=== PATIENT | female | born 1970 | race Caucasian/White ===

== ENCOUNTER 2017-09-14 11:15 | Emergency (ER) | payer BC ==
--- OUTSIDE RECORDS SUMMARY | 2017-09-14 11:29 | XMS REPORT ---
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 Eosinophils 0.1 10^3/uL 0-0.6 Abs Basophils 0 10^3/uL 0-0.2 Abs Nucleated RBC 0.01 10^3/uL Granulocyte % 64.4 % 38-83 Lymphocyte % 28.1 % 25-47 Monocyte % 5.9 % 1-9 Eosinophil % 1.2 % 0-6 Basophil % 0.4 % 0-2 Nucleated Red Blood Cells % 0.1 Laboratory test finding 09/20/2014 Troponin I 0.00 ng/mL <0.03 40, 41 Arthritis Panel 07/13/2013 Erythrocyte Sed Rate 15 mm/Hr High 0-14 Uric Acid 3.4 mg/dL 2.3-6.6 Shweta (Anti-Nuclear AB) Screen Negative Negative Rheumatoid Factor <15 IU/mL <15 42 Lyme Western Blot 07/13/2013 Lyme Disease IgG Ab WB Negative Negative Lyme Disease IgG Bands Present p41, kDa Lyme Disease IgM Ab WB Negative Negative Lyme Disease IgM Bands Present No bands detecte <SEE NOTE> kDa 43 Lyme Disease Interpretation See Comment 44 Surgical Pathology 06/21/2013 S RUN DATE: <SEE NOTE> Clotest 06/21/2013 Clotest (SEE NOTE) 46 Throat-Beta Strept 06/19/2013 Throat Beta Strep (SEE NOTE) 47 Culture Stool For Blood 01/08/2013 Stool Occult Blood (SEE NOTE) 48 Laboratory test finding 01/08/2013 Fecal Lactoferrin (Stool (SEE NOTE) 49 WBC) C. difficile Amplified Dna (SEE NOTE) 50 Stool Panel ([facility]) 01/07/2013 O P: Giardia/Cryptospor Screen (SEE NOTE) 51 Stool Culture (SEE NOTE) 52 Transglutaminase Igg & Iga 01/05/2013 Tissue Transglutaminase IgA Ab <1.2 U/ mL 53 Tissue Transglutaminase IgG Ab 2.7 U/mL 54 Laboratory test finding 01/05/2013 TSH (Thyroid Stimulating 2.50 miu/mL 0.34-5.60 Horm) CBC No Diff 01/05/2013 White Blood Count 5.8 10^3/uL 4.8-10.8 Red Blood Count 4.11 10^6/uL 4.0-5.4 Hemoglobin 12.7 g/dL 12.0-16.0 Hematocrit 38 % 35-47 Mean Corpuscular Volume 91 fL 80-97 Mean Corpuscular Hemoglobin 31 pg 27-31 Mean Corpuscular HGB Conc 34 g/dL 31-36 Red Cell Distribution Width 12 % 10.5-15 Platelet Count 221 10^3/uL 150-450 Mean Platelet Volume 8 um3 7.4-10.4 Comp Metabolic Panel 01/05/2013 Sodium 139 mmol/L 133-145 Potassium 4.1 mmol/L 3.5-5.0 Chloride 105 mmol/L 101-111 Co2 Carbon Dioxide 27.0 mmol/L 22-32 Anion Gap 7.0 mmol/L 2-11 Glucose 85 mg/dL 70-100 Blood Urea Nitrogen 4 mg/dL Low 6-24 Creatinine 0.80 mg/dL 0.50-1.40 BUN/Creatinine Ratio 5.0 Low 8-20 Calcium 9.3 mg/dL 8.1-9.9 Total Protein 6.6 g/dL 6.2-8.1 Albumin 4.3 g/dL 3.6-5.4 Globulin 2.3 g/dL 2-4 Albumin/Globulin Ratio 1.9 1-3 Total Bilirubin 0.5 mg/dL 0.4-1.5 Alkaline Phosphatase 59 U/L 30-110 Alt 11 U/L Low 14-54 Ast 21 U/L 12-42 Egfr Non- 78.7 >60 Egfr 101.2 >60 55 Laboratory test finding 01/20/2012 Strep Screen NEG Neg CBC Auto Diff 07/01/2011 White Blood Count 6.2 CUMM 4.8-10.8 Red Cell Count 3.97 CUMM Low 4.2-5.4 Hemoglobin 12.5 g/dL 12.0-16.0 Hematocrit 37 % 35-47 Mean Corpuscular Volume 92 um3 79-97 Mean Corpuscular Hemoglob 32 pg High 27-31 Mean Corpuscular HGB Cone 34 g/dL 32-36 Redcell Distribution WDTH 13 % 10.5-15 Platelet Count 208 CUMM 150-450 Mean Platelet Volume 8.4 um3 7.4-10.4 Gran % 62.5 % 38-83 Lymph % 29.4 % 25-47 Mononuclear % 6.7 % 1-9 Eosinophil % 0.8 % 0-6 Basophil % 0.6 % 0-2 Abs Lymphs 1.8 1.0-4.8 Abs Mononuclear 0.4 0-0.8 Absolute Neutrophil Count 3.9 1.5-7.7 Abs Eosinophils 0 0-0.6 Abs Basophils 0 0-0.2 Basic Metabolic Panel 07/01/2011 Sodium 139 mmol/L 135-145 Potassium 3.7 mmol/L 3.5-5.0 Chloride 107 mmol/L 101-111 Co2 (Carbon Dioxide) 26.0 mmol/L 22-32 Anion Gap 6.0 mmol/L 2-11 56 Glucose 98 mg/dL 70-100 BUN 12 mg/dL 6-24 Creatinine 0.8 mg/dL 0.50-1.40 One Over Creatinine 1.25 BUN/Creatinine Ratio 15.0 8-20 Calcium 9.4 mg/dL 8.1-9.9 eGFR Non- 79.0 > 60 eGFR 101.7 > 60 57 Laboratory test finding 07/01/2011 Thyroxine 5.5 g/dL 5-12 T3 Total 0.92 NG/ML 0.5-1.7 TSH 1.97 MIU/ML 0.34-5.60 Laboratory test finding 07/01/2011 Magnesium 1.8 mg/dL 1.7-2.6 Laboratory test finding 10/31/2010 Sweat Chloride 42 mmol/L 58 CBC Auto Diff 08/10/2010 White Blood Count 7.5 CUMM 4.8-10.8 Red Cell Count 3.93 CUMM Low 4.2-5.4 Hemoglobin 12.1 g/dL 12.0-16.0 Hematocrit 36 % 35-47 Mean Corpuscular Volume 93 um3 79-97 Mean Corpuscular Hemoglob 31 pg 27-31 Mean Corpuscular HGB Cone 33 g/dL 32-36 Redcell Distribution WDTH 13 % 10.5-15 Platelet Count 244 CUMM 150-450 Mean Platelet Volume 8.1 um3 7.4-10.4 Gran % 67.5 % 38-83 Lymph % 25.2 % 25-47 Mononuclear % 6.0 % 1-9 Eosinophil % 1.0 % 0-6 Basophil % 0.3 % 0-2 Abs Lymphs 1.9 1.0-4.8 Abs Mononuclear 0.5 0-0.8 Absolute Neutrophil Count 5.1 1.5-7.7 Abs Eosinophils 0.1 0-0.6 Abs Basophils 0 0-0.2 Comp Metabolic Panel 08/10/2010 Sodium 137 mmol/L 135-145 Potassium 3.7 mmol/L 3.5-5.0 Chloride 102 mmol/L 101-111 Co2 (Carbon Dioxide) 29.0 mmol/L 22-32 Anion Gap 6.0 mmol/L 2-11 59 Glucose 81 mg/dL 70-100 BUN 10 mg/dL 6-24 Creatinine 0.70 mg/dL 0.50-1.40 One Over Creatinine 1.40 BUN/Creatinine Ratio 14.3 8-20 Calcium 9.2 mg/dL 8.1-9.9 Total Protein 6.7 GM/DL 6.2-8.1 Albumin 4.1 GM/DL 3.6-5.4 Globulin 2.6 GM/DL 2-4 Albumin/Globulin Ratio 1.6 1-3 Bilirubin Total 0.7 mg/dL 0.4-1.5 60 Alkaline Phosphatase 70 U/L 30-110 Alt (SGPT) 10 U/L Low 14-54 Ast (Sgot) 23 U/L 12-42 eGFR Non- 92.7 > 60 eGFR 119.2 > 60 61 Laboratory test finding 08/10/2010 Monospot NEGATIVE Negative Latoya Moody Comprehensive 08/10/2010 Ebv Vca Igg Positive Negative Ebv Vca Igm Negative Negative Ebna Positive Negative Ebv Interpretation SEE BELOW () 62 Laboratory test finding 08/10/2010 Strep Screen NEG Neg Laboratory test finding 12/21/2008 Lipase 23 U/L 22-51 Amylase 42 U/L 30-125 Comp Metabolic Panel 12/21/2008 Sodium 137 mmol/L 135-145 Potassium 3.9 mmol/L 3.5-5.0 Chloride 106 mmol/L 101-111 Co2 (Carbon Dioxide) 27.0 mmol/L 22-32 Anion Gap 4.0 mmol/L 2-11 63 Glucose 84 mg/dL 70-100 64 BUN 7 mg/dL 6-24 Creatinine 0.90 mg/dL 0.50-1.40 One Over Creatinine 1.10 BUN/Creatinine Ratio 7.8 Low 8-20 Calcium 9.0 mg/dL 8.1-9.9 65 Total Protein 6.6 GM/DL 6.2-8.1 Albumin 4.0 GM/DL 3.6-5.4 Globulin 2.6 GM/DL 2-4 Albumin/Globulin Ratio 1.5 1-3 Bilirubin Total 0.9 mg/dL 0.4-1.5 66 Alkaline Phosphatase 60 U/L 30-110 Alt (SGPT) 8 U/L Low 14-54 Ast (Sgot) 21 U/L 12-42 eGFR Non- 74.5 > 60 eGFR 90.1 > 60 67 CBC With Electronic Diff 12/21/2008 White Blood Count 5.8 CUMM 4.8-10.8 Red Cell Count 4.21 CUMM 4.2-5.4 Hemoglobin 13.2 g/dL 12.0-16.0 Hematocrit 39 % 35-47 Mean Corpuscular Volume 93 um3 79-97 Mean Corpuscular Hemoglob 31 pg 27-31 Mean Corpuscular HGB Cone 34 g/dL 32-36 Redcell Distribution WDTH 13 % 10.5-15 Platelet Count 219 CUMM 150-450 Mean Platelet Volume 8.0 um3 7.4-10.4 Gran % 60.6 % 38-83 Lymph % 28.8 % 25-47 Mononuclear % 9.2 % High 1-9 Eosinophil % 0.8 % 0-6 Basophil % 0.6 % 0-2 Abs Lymphs 1.7 1.0-4.8 Abs Mononuclear 0.5 0-0.8 Absolute Neutrophil Count 3.5 1.5-7.7 Abs Eosinophils 0 0-0.6 Abs Basophils 0 0-0.2 Laboratory test finding 04/15/2007 Erythrocyte Sed Rate 22 MM/HR High 0- 15 Monospot NEGATIVE Negative Shweta (Antinuclear Antibodies) 04/15/2007 Antinuclear AB NEGATIVE Negative Comp Metabolic Panel 04/15/2007 One Over Creatinine 1.11 Anion Gap 7.0 mmol/L 2-11 68 Albumin/Globulin Ratio 1.3 1-3 Albumin 3.8 GM/DL 3.6-5.4 Alkaline Phosphatase 68 U/L 30-110 Alt (SGPT) 10 U/L Low 14-54 Ast (Sgot) 24 U/L 12-42 BUN 8 mg/dL 6-24 Calcium 8.3 mg/dL Low 8.7-10.2 Chloride 107 mmol/L 101-111 Co2 (Carbon Dioxide) 25.0 mmol/L 22-32 Globulin 3.0 GM/DL 2-4 Glucose 79 mg/dL 70-105 Potassium 4.2 mmol/L 3.5-5.0 Sodium 139 mmol/L 135-145 Bilirubin Total 0.7 mg/dL 0.4-1.5 Total Protein 6.8 GM/DL 6.2-8.1 BUN/Creatinine Ratio 8.9 8-20 Creatinine 0.9 mg/dL 0.5-1.4 CBC With Electronic Diff 04/15/2007 White Blood Count 6.3 CUMM 4.8-10.8 Abs Basophils 0 0-0.2 Abs Eosinophils 0.1 0-0.6 Absolute Neutrophil Count 3.8 1.5-7.7 Abs Lymphs 1.8 1.0-4.8 Abs Mononuclear 0.6 0-0.8 Basophil % 0.5 % 0-2 Hematocrit 35 % 35-47 Hemoglobin 12.0 g/dL 12.0-16.0 Eosinophil % 1.2 % 0-6 Gran % 59.9 % 38-83 Lymph % 29.2 % 20-45 Mean Corpuscular HGB Cone 34 g/dL 32-36 Mean Corpuscular Hemoglob 30 pg 27-31 Mean Corpuscular Volume 90 um3 79-97 Mean Platelet Volume 8.7 um3 7.4-10.4 Mononuclear % 9.2 % High 1-9 Platelet Count 222 CUMM 150-450 Red Cell Count 3.95 CUMM Low 4.2-5.4 Redcell Distribution WDTH 13 % 10.5-15 Laboratory test finding 04/15/2007 Strep Screen NEG Neg Laboratory test finding 03/23/2007 Flu Test A&B, Quickvue POS CBC With Manual Diff 03/23/2007 White Blood Count 4.8 CUMM 4.8-10.8 Absolute Neutrophil Count 4.0 Hematocrit 32 % Low 35-47 Hemoglobin 11.1 g/dL Low 12.0-16.0 Lymphocyte 10 % 5-47 Mean Corpuscular HGB Cone 35 g/dL 32-36 Mean Corpuscular Hemoglob 30 pg 27-31 Mean Corpuscular Volume 88 um3 79-97 Monocyte 5 % 0-13 Mean Platelet Volume 8.9 um3 7.4-10.4 Platelet Count 158 CUMM 150-450 Poikilocytosis SLIGHT Polysegmented Neutrophil 85 % High 38-83 Red Cell Count 3.65 CUMM Low 4.2-5.4 Redcell Distribution WDTH 13 % 10.5-15 Laboratory test 03/23/2007 Erythrocyte Sed Rate 13 MM/HR 0-15 finding Shweta (Antinuclear 03/23/2007 Antinuclear AB NEGATIVE Negative Antibodies) Laboratory test 03/23/2007 Rheumatoid Factor < 20.0 IU/mL Less Than 20 finding Laboratory test 03/23/2007 Cyclic Citrullinated <15.6 U () 69 finding Pep Igg Comp Metabolic Panel 03/23/2007 One Over Creatinine 1.00 Anion Gap 14.0 mmol/L High 2-11 70 Albumin/Globulin Ratio 1.3 1-3 Albumin 3.6 GM/DL 3.6-5.4 Alkaline Phosphatase 63 U/L 30-110 Alt (SGPT) 27 U/L 14-54 Ast (Sgot) 143 U/L High 12-42 BUN 8 mg/dL 6-24 Calcium 8.3 mg/dL Low 8.7-10.2 Chloride 103 mmol/L 101-111 Co2 (Carbon Dioxide) 25.0 mmol/L 22-32 Globulin 2.8 GM/DL 2-4 Glucose 109 mg/dL High 70-105 Potassium 3.6 mmol/L 3.5-5.0 Sodium 142 mmol/L 135-145 Bilirubin Total 0.4 mg/dL 0.4-1.5 Total Protein 6.4 GM/DL 6.2-8.1 BUN/Creatinine Ratio 8.0 8-20 Creatinine 1.0 mg/dL 0.5-1.4 Laboratory test finding 10/03/2006 Strep Screen NEG Neg Comp Metabolic Panel 10/03/2006 One Over Creatinine 1.11 Anion Gap 6.0 mmol/L 2-11 71 Albumin/Globulin Ratio 1.6 1-3 Albumin 4.1 GM/DL 3.6-5.4 Alkaline Phosphatase 57 U/L 30-110 Alt (SGPT) 8 U/L Low 14-54 Ast (Sgot) 22 U/L 12-42 BUN 10 mg/dL 6-24 Calcium 8.8 mg/dL 8.7-10.2 Chloride 106 mmol/L 101-111 Co2 (Carbon Dioxide) 27.0 mmol/L 22-32 Globulin 2.5 GM/DL 2-4 Glucose 83 mg/dL 70-105 Potassium 4.1 mmol/L 3.5-5.0 Sodium 139 mmol/L 135-145 Bilirubin Total 0.5 mg/dL 0.4-1.5 Total Protein 6.6 GM/DL 6.2-8.1 BUN/Creatinine Ratio 11.1 8-20 Creatinine 0.9 mg/dL 0.5-1.4 Laboratory test finding 10/03/2006 TSH 2.14 MIU/ML 0.34-5.60 Free Thyroxine 0.60 NG/ML Low 0.61-1.24 72 CBC With Manual Diff 10/03/2006 White Blood Count 6.9 CUMM 4.8-10.8 Absolute Neutrophil Count 4.8 Anisocytosis SLIGHT Hematocrit 37 % 35-47 Hemoglobin 12.6 g/dL 12.0-16.0 Lymphocyte 28 % 5-47 Mean Corpuscular HGB Cone 34 g/dL 32-36 Mean Corpuscular Hemoglob 32 pg High 27-31 Mean Corpuscular Volume 92 um3 79-97 Monocyte 2 % 0-13 Mean Platelet Volume 8.7 um3 7.4-10.4 Platelet Count 227 CUMM 150-450 Polysegmented Neutrophil 70 % 38-83 Red Cell Count 4.01 CUMM Low 4.2-5.4 Redcell Distribution WDTH 13 % 10.5-15 1 REFERENCE VALUE 6:00-10:30 AM Collection 0.121-1.065 mcg/dL ADDITIONAL INFORMATION This test was developed and its performance characteristics determined by [facility] in a manner consistent with CLIA requirements. This test has not been cleared or approved by the U.S. Food and Drug Administration. Test Performed by: [facility] [address] [place] [id number] 2 Comment: baseline 3 AM 8.7-22.4 PM <10 4 Comment: 90 min 5 AM 8.7-22.4 PM <10 6 Comment: 30 min 7 AM 8.7-22.4 PM <10 8 AM 8.7-22.4 PM <10 9 [id number] Serologic response to B. burgdorferi infection is not detected, but cannot rule out early infection during which low or undetectable antibody levels to B. burgdorferi may be present. If clinically indicated, a new serum specimen should be submitted in 7-14 days. Test Performed by: [facility] [employer] [address] [place] [id number] 13 Because ethnic data is not always readily available, this report includes an eGFR for both -Americans and non- Americans. The National Kidney Disease Education Program (NKDEP) does not endorse the use of the MDRD equation for patients that are not between the ages of 18 and 70, are , have extremes of body size, muscle mass, or nutritional status, or are non- or non-. According to the National Kidney Foundation, irrespective of diagnosis, the stage of the disease is based on the level of kidney function: Stage Description GFR(mL/min/1.73 m(2)) 1 Kidney damage with normal or decreased GFR 90 2 Kidney damage with mild decrease in GFR 60-89 3 Moderate decrease in GFR 30-59 4 Severe decrease in GFR 15-29 5 Kidney failure <15 (or dialysis) 14 Acute inflammation: >10.00 15 ADDITIONAL INFORMATION This test was developed using an analyte specific reagent. Its performance characteristics were determined by [facility] in a manner consistent with CLIA requirements. This test has not been cleared or approved by the U.S. Food and Drug Administration. Test Performed by: [address] [id number] 16 Acute inflammation: >10.00 17 Because ethnic data is not always readily available, this report includes an eGFR for both -Americans and non- Americans. The National Kidney Disease Education Program (NKDEP) does not endorse the use of the MDRD equation for patients that are not between the ages of 18 and 70, are , have extremes of body size, muscle mass, or nutritional status, or are non- or non-. According to the National Kidney Foundation, irrespective of diagnosis, the stage of the disease is based on the level of kidney function: Stage Description GFR(mL/min/1.73 m(2)) 1 Kidney damage with normal or decreased GFR 90 2 Kidney damage with mild decrease in GFR 60-89 3 Moderate decrease in GFR 30-59 4 Severe decrease in GFR 15-29 5 Kidney failure <15 (or dialysis) 18 Test Performed by: [address] [id number] 19 Specific serologic response to B. burgdorferi infection is not detected, but cannot rule out early infection during which low or undetectable antibody levels to B. burgdorferi may be present. If clinically indicated, a new serum specimen should be submitted in 7-14 days. ADDITIONAL INFORMATION CDC criteria require >=5 bands for IgG or >=2 bands for IgM for the Immunoblot to be considered positive. Bands (e.g.,p41) may be detected in patients without Lyme disease, and patterns not meeting the CDC criteria should be interpreted with caution. Immunoblot should be ordered only on specimens that are positive or equivocal by a FDA-licensed Lyme disease antibody screening test (e.g., EIA). Test Performed by: [facility] [address] [facility] [address] [place] [address] 20 [id number] REFERENCE VALUE <20.0 (Negative) Test Performed by: [address] [id number] 22 [id number] ANTIBODY NOT DETECTED REFERENCE RANGES: IgG <1:64 IgM <1:20 Elevated antibody levels to B. microti indicate exposure to the organism. Human babesiosis infection is transmitted by the bite of an infected Ixodes tick or less frequently from transfusion with blood from an infected donor. Definitive diagnosis is made by identifying intraerythrocytic organisms in peripheral blood. In patients with low parasitemia, antibody detection by IFA is recommended. IgG levels greater than or equal to 1:1024 can be detected in acute phase patients with parasites in blood smears. The IFA assay can be used as a seroepidemiologic tool to study the frequency and distribution of B. microti in endemic areas especially in persons with mixed infections also involving Borrelia burgdorferi. This test was developed and its analytical performance characteristics have been determined by [facility]. It has not been cleared or approved by the U.S. Food and Drug Administration. The FDA has determined that such clearance or approval is not necessary. This assay has been validated pursuant to the CLIA regulations and is used for clinical purposes. Test Performed by: [employer], [employer] [address] [place] [address] 24 Because ethnic data is not always readily available, this report includes an eGFR for both -Americans and non- Americans. The National Kidney Disease Education Program (NKDEP) does not endorse the use of the MDRD equation for patients that are not between the ages of 18 and 70, are , have extremes of body size, muscle mass, or nutritional status, or are non- or non-. According to the National Kidney Foundation, irrespective of diagnosis, the stage of the disease is based on the level of kidney function: Stage Description GFR(mL/min/1.73 m(2)) 1 Kidney damage with normal or decreased GFR 90 2 Kidney damage with mild decrease in GFR 60-89 3 Moderate decrease in GFR 30-59 4 Severe decrease in GFR 15-29 5 Kidney failure <15 (or dialysis) 25 [id number] 26 SEE RESULT BELOW Name: LAURENCE PEREZ : [address]: Renetta Weiner NP Acct: [id number] Unit: [id number] AGE: 45 Location: [facility] Re08/30/15 SEX: F Status: REG REF SPEC: [id number] LAYO: 08/30/15-[address]: Renetta Weiner NP REQ: [id number] RECD: 08/30/15 STATUS: COMP _ SOURCE: URINE SPDESC: ORDERED: Urine Culture COMMENTS: [id number] Procedure Result Reported Site Urine Culture Final 09/01/15- 904 ML No Growth (<1,000 CFU/mL) * ML - MAIN LAB (PSC1) . END OF REPORT * ML=Testing performed at Main Lab DEPARTMENT OF PATHOLOGY, [address] [place] [address] Gigi Miranda M.D. Director [facility] # [id number] 27 FASTING 28 Desirable <150 Borderline high 150-199 High 200-499 Very High >500 29 Desirable <200 Borderline high 200-239 High >239 30 Low <40 Desirable: 40-60 High: >60 31 Desirable: <100 mg/dL Near Optimal: 100-129 mg/dL Borderline High: 130-159 mg/dL High: 160-189 mg/dL Very High: >189 mg/dL 32 KIT AND CUP 33 SEE RESULT BELOW Name: LAURENCE PEREZ : [address]: Justice Qiu III DIRECTOR OF PHYSIOTHERAPY SERVICES Acct: [id number] Unit: [id number] AGE: 44 Location: [facility] Re10/21/14 SEX: F Status: REG REF SPEC: [id number] LAYO: 10/21/[address]: Justice Qiu III DIRECTOR OF PHYSIOTHERAPY SERVICES REQ: [id number] RECD: 10/21/14 STATUS: COMP _ SOURCE: STOOL SPDESC: ORDERED: Hemoccult, Stool Culture, Fecal Lactoferr, O P: Giar/Crypt COMMENTS: KIT AND CUP C. Difficile toxin testing is not performed on formed stool specimens. Test of cure on positive patients is not recommended. C. Difficile toxin testing is not performed on formed stool specimens. Test of cure on positive patients is not recommended. Verbal to GENNARO WALSH by [id number] at 1242 on 10/21/14. Procedure Result Verified Site Stool Culture Final 10/23/14- 1035 ML Result No enteric pathogens isolated Testing for Salmonella, Shigella, Aeromonas, Plesiomonas, Yersinia and Campylobacter are included in a Stool Culture. Vibrio spp not routinely tested for in a stool culture. If testing is desired, please request specifically when placing test order. Sensitivities not routinely performed on stool isolates, as antibiotics may prolong the carriage rate of bacteria. Please contact the microbiology lab if sensitivities are required. Stool Specimen Description Final 10/21/14- 1128 ML Stool Color Brown Stool Form Semi-formed Stool Consistency Soft Shiga Toxin 1 2 Final 10/24/14- 1142 ML CONTINUED ON NEXT PAGE * ML=Testing performed at Main Lab DEPARTMENT OF PATHOLOGY, [address] [place] [address] Gigi Miranda M.D. Director [facility] # [id number] Patient: LAURENCE PEREZ [id number] (Continued) Specimen: [id number] Collected: 10/21/14 Received: 10/21/14 (Continued) Procedure Result Verified Site Shiga Toxin 1 2 Final (continued) 10/24/14- 1142 Organism 1 Negative Shiga Toxin 1 2 Immunochromatographic Assay Fecal Lactoferrin (Stool WBC) Final 10/22/14- 1224 ML Fecal Lactoferrin Negative by Immunoassay TEST LIMITATIONS: Assay detects elevated levels of lactoferrin released from fecal leukocytes as a marker of intestinal inflammation. The test may not be appropriate in immunocompromised persons. Fecal samples from breast fed infants should not be used with this assay. Stool Occult Blood Final 10/21/14- 1143 ML Stool Occult Blood Negative O P: Giardia/Cryptospor Screen Final 10/21/14- 1412 ML Organism 1 Neg Cryptosporidium/Giardia Giardia and cryptosporidium antigen testing performed by enzyme immunoassay. If patient is immunocompromised or has traveled to or is from a developing country, a full ova and parasite exam with microscopic (OPMIC) is recommended. All samples will be held one month in case full ova and parasite testing is requested. Contact the Microbiology Department at [phone]. TEST LIMITATIONS: As with all diagnostic procedures, the results obtained should be used in conjunction with other clinical information available the physician, including confirmation by another method. Negative results can occur in samples CONTINUED ON NEXT PAGE * ML=Testing performed at Main Lab DEPARTMENT OF PATHOLOGY, [address] [place] [address] Gigi Miranda M.D. Director [facility] # [id number] Patient: LAURENCE PEREZ [id number] (Continued) Specimen: [id number] Collected: 10/21/14 Received: 10/21/14 (Continued) Procedure Result Verified Site O P: Giardia/Cryptospor Screen Final (continued) 10/21/141411 containing antigen below lower limits of detection of the assay. One negative specimen does not rule out the possibility of a parasitic infection. To improve detection it is recommended that three specimens be collected on separate days over a period of not more than seven days. The use of colonic washes, aspirates or other diluted sample types has not been established and could affect the performance of the assay. Stool samples contaminated with an oily or particulate base (eg. Barium, mineral oil etc.) could interfere with the test and are not recommended. * ML - [facility] ([facility]) . END OF REPORT * ML=Testing performed at Main Lab DEPARTMENT OF PATHOLOGY, [address] [place] [address] Gigi Miranda M.D. Director [facility] # [id number] 34 SEE RESULT BELOW Name: LAURENCE PEREZ : [address]: Justice Qiu III, NP Acct: [id number] Unit: [id number] AGE: 44 Location: [facility] Re10/21/14 SEX: F Status: REG REF SPEC: [id number] LAYO: 10/21/14-699 [facility] DR: Justice Qiu III DIRECTOR OF PHYSIOTHERAPY SERVICES REQ: [id number] RECD: 10/21/14 STATUS: RES _ SOURCE: STOOL SPDESC: ORDERED: Hemoccult, Stool Culture, Fecal Lactoferr, O P: Giar/Crypt COMMENTS: KIT AND CUP C. Difficile toxin testing is not performed on formed stool specimens. Test of cure on positive patients is not recommended. C. Difficile toxin testing is not performed on formed stool specimens. Test of cure on positive patients is not recommended. Verbal to GENNARO WALSH by [id number] at 1242 on 10/21/14. Procedure Result Verified Site Stool Culture PENDING Stool Specimen Description Final 10/21/14- 1128 ML Stool Color Brown Stool Form Semi-formed Stool Consistency Soft Shiga Toxin 1 2 PENDING Fecal Lactoferrin (Stool WBC) Final 10/22/14- 1224 ML Fecal Lactoferrin Negative by Immunoassay TEST LIMITATIONS: Assay detects elevated levels of lactoferrin released from fecal leukocytes as a marker of intestinal inflammation. The test may not be appropriate in immunocompromised persons. Fecal samples from breast fed infants should not be used with this assay. Stool Occult Blood Final 10/21/14- 1143 ML CONTINUED ON NEXT PAGE * ML=Testing performed at Main Lab DEPARTMENT OF PATHOLOGY, [address] [place] [address] Gigi Miranda M.D. Director [facility] # [id number] Patient: LAURENCE PEREZ [id number] (Continued) Specimen: [id number] Collected: 10/21/14 Received: 10/21/14 (Continued) Procedure Result Verified Site Stool Occult Blood Final (continued) 10/21/14- 1143 Stool Occult Blood Negative O P: Giardia/Cryptospor Screen Final 10/21/14- 1412 ML Organism 1 Neg Cryptosporidium/Giardia Giardia and cryptosporidium antigen testing performed by enzyme immunoassay. If patient is immunocompromised or has traveled to or is from a developing country, a full ova and parasite exam with microscopic (OPMIC) is recommended. All samples will be held one month in case full ova and parasite testing is requested. Contact the Microbiology Department at [phone]. TEST LIMITATIONS: As with all diagnostic procedures, the results obtained should be used in conjunction with other clinical information available the physician, including confirmation by another method. Negative results can occur in samples containing antigen below lower limits of detection of the assay. One negative specimen does not rule out the possibility of a parasitic infection. To improve detection it is recommended that three specimens be collected on separate days over a period of not more than seven days. The use of colonic washes, aspirates or other diluted sample types has not been established and could affect the performance of the assay. Stool samples contaminated with an oily or particulate base (eg. Barium, mineral oil etc.) could interfere with the test and are not recommended. * ML - MAIN LAB ([facility]) . END OF REPORT * ML=Testing performed at Main Lab DEPARTMENT OF PATHOLOGY, [address] [place] [address] Gigi Miranda M.D. Director [facility] # [id number] 35 SEE RESULT BELOW Name: LAURENCE PEREZ : [address]: Justice Qiu III, NP Acct: [id number] Unit: [id number] AGE: 44 Location: [facility] Re10/21/14 SEX: F Status: REG REF SPEC: [id number] LAYO: 10/21/[address]: Justice Qiu III DIRECTOR OF PHYSIOTHERAPY SERVICES REQ: [id number] RECD: 10/21/14 STATUS: RES _ SOURCE: STOOL SPDESC: ORDERED: Hemoccult, Stool Culture, Fecal Lactoferr, O P: Giar/Crypt COMMENTS: KIT AND CUP C. Difficile toxin testing is not performed on formed stool specimens. Test of cure on positive patients is not recommended. C. Difficile toxin testing is not performed on formed stool specimens. Test of cure on positive patients is not recommended. Verbal to GENNARO WALSH by [id number] at 1242 on 10/21/14. Procedure Result Verified Site Stool Culture PENDING Stool Specimen Description Final 10/21/14- 1128 ML Stool Color Brown Stool Form Semi-formed Stool Consistency Soft Shiga Toxin 1 2 PENDING Fecal Lactoferrin (Stool WBC) PENDING Stool Occult Blood Final 10/21/14- 1143 ML Stool Occult Blood Negative O P: Giardia/Cryptospor Screen Final 10/21/14- 1412 ML Organism 1 Neg Cryptosporidium/Giardia CONTINUED ON NEXT PAGE * ML=Testing performed at Main Lab DEPARTMENT OF PATHOLOGY, [address] [place] [address] Gigi Miranda M.D. Director [facility] # [id number] Patient: LAURENCE PEREZ Rivera [id number] (Continued) Specimen: [id number] Collected: 10/21/14 Received: 10/21/14 (Continued) Procedure Result Verified Site O P: Giardia/Cryptospor Screen Final (continued) 10/21/14- 2 Giardia and cryptosporidium antigen testing performed by enzyme immunoassay. If patient is immunocompromised or has traveled to or is from a developing country, a full ova and parasite exam with microscopic (OPMIC) is recommended. All samples will be held one month in case full ova and parasite testing is requested. Contact the Microbiology Department at [phone]. TEST LIMITATIONS: As with all diagnostic procedures, the results obtained should be used in conjunction with other clinical information available the physician, including confirmation by another method. Negative results can occur in samples containing antigen below lower limits of detection of the assay. One negative specimen does not rule out the possibility of a parasitic infection. To improve detection it is recommended that three specimens be collected on separate days over a period of not more than seven days. The use of colonic washes, aspirates or other diluted sample types has not been established and could affect the performance of the assay. Stool samples contaminated with an oily or particulate base (eg. Barium, mineral oil etc.) could interfere with the test and are not recommended. * ML - MAIN LAB ([facility]) . END OF REPORT * ML=Testing performed at Main Lab DEPARTMENT OF PATHOLOGY, [address] [place] [address] Gigi Miranda M.D. Director [facility] # [id number] 36 SEE RESULT BELOW Name: LAURENCE PEREZ : [address]: Justice Qiu III DIRECTOR OF PHYSIOTHERAPY SERVICES Acct: [id number] Unit: [id number] AGE: 44 Location: [facility] Re10/21/14 SEX: F Status: REG REF SPEC: [id number] LAYO: 10/21/14-[address]: Justice Qiu III DIRECTOR OF PHYSIOTHERAPY SERVICES REQ: [id number] RECD: 10/21/14 STATUS: RES _ SOURCE: STOOL SPDESC: ORDERED: Hemoccult, Stool Culture, Fecal Lactoferr, O P: Giar/Crypt COMMENTS: KIT AND CUP C. Difficile toxin testing is not performed on formed stool specimens. Test of cure on positive patients is not recommended. Procedure Result Verified Site Stool Culture PENDING Stool Specimen Description Final 10/21/14- 1128 ML Stool Color Brown Stool Form Semi-formed Stool Consistency Soft Shiga Toxin 1 2 PENDING Fecal Lactoferrin (Stool WBC) PENDING Stool Occult Blood Final 10/21/14- 1143 ML Stool Occult Blood Negative O P: Giardia/Cryptospor Screen PENDING * ML - MAIN LAB ([facility]) . END OF REPORT * ML=Testing performed at Main Lab DEPARTMENT OF PATHOLOGY, [address] [place] [address] Gigi Miranda M.D. Director [facility] # [id number] 37 Reference Range and Interpretation: TnI (ng/mL) Interpretation Less Than 0.03 ng/mL Not supportive of diagnosis of AL 0.03 - 0.50 ng/mL Indeterminate: suggest serial studies if clinically indicated. Greater than 0.5 ng/mL Consistent with diagnosis of AL 38 Because ethnic data is not always readily available, this report includes an eGFR for both -Americans and non- Americans. The National Kidney Disease Education Program (NKDEP) does not endorse the use of the MDRD equation for patients that are not between the ages of 18 and 70, are , have extremes of body size, muscle mass, or nutritional status, or are non- or non-. According to the National Kidney Foundation, irrespective of diagnosis, the stage of the disease is based on the level of kidney function: Stage Description GFR(mL/min/1.73 m(2)) 1 Kidney damage with normal or decreased GFR 90 2 Kidney damage with mild decrease in GFR 60-89 3 Moderate decrease in GFR 30-59 4 Severe decrease in GFR 15-29 5 Kidney failure <15 (or dialysis) 39 >100 to <200 pg/mL: likely compensated congestive heart failure (CHF) 200 to 400 pg/mL: likely moderate CHF >400 pg/mL: likely moderate to severe CHF 40 Comment: s 41 Reference Range and Interpretation: TnI (ng/mL) Interpretation Less Than 0.03 ng/mL Not supportive of diagnosis of AL 0.03 - 0.50 ng/mL Indeterminate: suggest serial studies if clinically indicated. Greater than 0.5 ng/mL Consistent with diagnosis of AL 42 Test Performed by: [address] [address] Kayaking Instructor: Rudi Erickson III, M.D. 43 No bands detected 44 Specific serologic response to B. burgdorferi infection is not detected, but cannot rule out early infection during which low or undetectable antibody levels to B. burgdorferi may be present. If clinically indicated, a new serum specimen should be submitted in 7-14 days. CDC criteria require >=5 bands for IgG or >=2 bands for IgM for the Immunoblot to be considered positive. Bands (e.g.,p41) may be detected in patients without Lyme disease, and patterns not meeting the CDC criteria should be interpreted with caution. Immunoblot should be ordered only on specimens that are positive or equivocal by a FDA-licensed Lyme disease antibody screening test (e.g., EIA). Test Performed by: [facility] - [address] [address] Kayaking Instructor: Rudi Erickson III, M.D. 45 RUN DATE: 06/22/13 [facility] LAB LIVE PAGE 1 RUN TIME: [address] [place] [address] Specimen Inquiry Name: CHRISLAURENCE L : [address]: Wesly Esposito MD Acct: [id number] Unit: [id number] AGE: 43 Location: [facility] Re06/21/13 SEX: F Status: REG REF SPEC: [id number] LAYO: 06/21/13- SUBM DR: Wesly Esposito MD REQ: [id number] RECD: 06/21/13 STATUS: ROBERT CURRY DR: Victor Hugo Root MD _ ORDERED: LEVEL IV/2 FINAL DIAGNOSIS 1. Small bowel, duodenum, biopsy: A. Small bowel mucosa with normal villous architecture and no significant pathologic abnormality. B. No infectious agents or viropathic changes identified. 2. Stomach, biopsies: A. Fragments of superficial antral mucosa with chronic inflammation and foveolar hyperplasia. B. No active gastritis nor Helicobacter pylori like organisms identified. C. No goblet cell metaplasia or dysplasia identified. COMMENTS: The tissue sample in part 2 is limited. CLINICAL HISTORY GERD for EGD POST-OPERATIVE DIAGNOSIS Esophagus - normal, stomach - gastritis biopsied, duodenum - normal. GROSS DESCRIPTION 1. The specimen is received in formalin labeled Laurence Perez, Katheryn Duodenum and consists of a 0.4 x 0.2 x 0.2 cm. dale-pink, irregular, soft tissue fragment. Submitted entirely, one cassette. CONTINUED ON NEXT PAGE * ML=Testing performed at Main Lab DEPARTMENT OF PATHOLOGY, [facility] [employer] [place] [address] Gigi Miranda M.D. Director [facility] # [id number] RUN DATE: 06/22/13 [facility] LAB LIVE PAGE 2 RUN TIME: [address] [facility] [employer] [place], [place] [address] Specimen Inquiry Patient: CHRISLAURENCE Stafford [id number] (Continued) GROSS DESCRIPTION (Continued) GROSS DESCRIPTION (Continued) 2. The specimen is received in formalin labeled Laurence Perez, Gastric Biopsies and consists of a 0.4 x 0.3 x 0.1 cm. aggregate of multiple, dale-pink, irregular , soft tissue fragments. Submitted entirely, one cassette. Signed (signature on file) Gigi Miranda MD 1455 END OF REPORT * ML=Testing performed at Main Lab DEPARTMENT OF PATHOLOGY, [facility] [employer] [place], [place] [address] Gigi Miranda M.D. Director [facility] # [id number] RUN DATE: 06/22/13 [facility] LAB LIVE PAGE 1 RUN TIME: [address] [facility] [employer] [place], [place] [address] Specimen Inquiry Name: LAURENCE PEREZ: [address]: Wesly Esposito MD Acct: [id number] Unit: [id number] AGE: 43 Location: [facility] Re06/21/13 SEX: F Status: REG REF SPEC: [id number] LAYO: 06/21/[address]: Wesly Esposito MD REQ: [id number] RECD: 06/21/13 STATUS: COMP JONATHANHR DR: Victor Hugo Root MD _ SOURCE: GAS ANTRUM SPDESC: ORDERED: Clotest COMMENTS: Comment: COPY TO DR. ROOT - THANKS Procedure Result Verified Site Clotest Final 06/22/13- 0756 ML Clotest Negative END OF REPORT * ML=Testing performed at Main Lab DEPARTMENT OF PATHOLOGY, [facility] [employer] [place], [place] [address] Gigi Miranda M.D. Director [facility] # [id number] RUN DATE: 06/22/13 [facility] LAB LIVE PAGE 1 RUN TIME: [address] [facility] [employer] [place], [place] [address] Specimen Inquiry Name: LAURENCE PEREZ : [address]: Jaki Pandya MD Acct: [id number] Unit: [id number] AGE: 43 Location: [facility] Re06/19/13 SEX: F Status: DEP ER SPEC: [id number] LAYO: 06/19/13-1926 [facility] DR: Jaki Pandya MD REQ: [id number] RECD: 06/20/131221 STATUS: MARGA CURRY DR: [facility] Victor Hugo Root MD _ SOURCE: THROAT SPDESC: ORDERED: Throat Beta Str Procedure Result Verified Site Throat Beta Strep Culture Final 06/22/13- 827 ML Negative For Group A Beta Streptococcus END OF REPORT * ML=Testing performed at Main Lab DEPARTMENT OF PATHOLOGY, [facility] [employer] [place], [place] [address] Gigi Miranda M.D. Director [facility] # [id number] RUN DATE: 01/08/13 [facility] LAB LIVE PAGE 1 RUN TIME: [address] [facility] [employer] [place], [place] [address] Specimen Inquiry Name: LAURENCE PEREZ : [address]: Victor Hugo Root MD Acct: [id number] Unit: [id number] AGE: 42 Location: [facility] Re01/07/13 SEX: F Status: REG REF SPEC: [id number] LAYO: 01/08/13 [facility] DR: Victor Hugo Root MD REQ: [id number] RECD: 01/08/13 STATUS: RES _ SOURCE: STOOL SPDESC: ORDERED: Hemoccult, Fecal Lactoferr, C. diff Amp DNA QUERIES: [employer] Number [id number] Procedure Result Verified Site Stool Specimen Description Final 01/08/13- 1204 ML Stool Color Brown Stool Form Semi-formed Stool Consistency Soft C. difficile Amplified DNA PENDING Fecal Lactoferrin (Stool WBC) PENDING Stool Occult Blood Final 01/08/13- 1230 ML Stool Occult Blood Negative END OF REPORT * ML=Testing performed at Main Lab DEPARTMENT OF PATHOLOGY, [facility] [employer] [place], [place] [address] Gigi Miranda M.D. Director [facility] Permit #[id number] RUN DATE: 01/08/13 [facility] LAB LIVE PAGE 1 RUN TIME: [address] [facility] [employer] [place], [place] [address] Specimen Inquiry Name: LAURENCE PEREZ : [address]: Victor Hugo Root MD Acct: [id number] Unit: [id number] AGE: 42 Location: [facility] Re01/07/13 SEX: F Status: REG REF SPEC: [id number] LAYO: 01/08/[address]: Victor Hugo Root MD REQ: [id number] RECD: 01/08/13120 STATUS: RES _ SOURCE: STOOL SPDESC: ORDERED: Hemoccult, Fecal Lactoferr, C. diff Amp DNA QUERIES: Med[employer] Number [id number] Procedure Result Verified Site Stool Specimen Description Final 01/08/13- 1204 ML Stool Color Brown Stool Form Semi-formed Stool Consistency Soft C. difficile Amplified DNA PENDING Fecal Lactoferrin (Stool WBC) Final 01/08/13- 1421 ML Fecal Lactoferrin Positive by Immunoassay TEST LIMITATIONS: Assay detects elevated levels of lactoferrin released from fecal leukocytes as a marker of intestinal inflammation. The test may not be appropriate in immunocompromised persons. Fecal samples from breast fed infants should not be used with this assay. Stool Occult Blood Final 01/08/13- 1230 ML Stool Occult Blood Negative END OF REPORT * ML=Testing performed at Main Lab DEPARTMENT OF PATHOLOGY, [facility] [employer] [place], [place] [address] Gigi Miranda M.D. Director [facility] Permit #[id number] RUN DATE: 01/08/13 [facility] LAB LIVE PAGE 1 RUN TIME: [address] [facility] [employer] [place], [place] [address] Specimen Inquiry Name: LAURENCE PEREZ : [address]: Victor Hugo Root MD Acct: [id number] Unit: [id number] AGE: 42 Location: [facility] Re01/07/13 SEX: F Status: REG REF SPEC: [id number] LAYO: 01/08/13 [facility] DR: Victor Hugo Root MD REQ: [id number] RECD: 01/08/13 STATUS: COMP _ SOURCE: STOOL SPDESC: ORDERED: Hemoccult, Fecal Lactoferr, C. diff Amp DNA QUERIES: Medent Number [id number] Procedure Result Verified Site Stool Specimen Description Final 01/08/13- 1204 ML Stool Color Brown Stool Form Semi-formed Stool Consistency Soft C. difficile Amplified DNA Final 01/08/13- 1526 ML Organism 1 Neg: No C. difficile detected Assay tests for toxigenic C. difficile with Pathogen Locus (PALOC) TEST LIMITATIONS: Assay does not distinguish between viable and nonviable organisms. Test results are to be used in conjunction with information available from the patient clinical evaluation and other diagnostic procedures. Two distinct groups have been identified that can harbor C. difficile asymptomatically at very high rates. Colonization at rates up to 50% and higher have been reported in infants and rates up to 32% in cystic fibrosis patients. Fecal Lactoferrin (Stool WBC) Final 01/08/13- 1421 ML Fecal Lactoferrin Positive by Immunoassay TEST LIMITATIONS: Assay detects elevated levels of lactoferrin released from fecal leukocytes as a marker of intestinal inflammation. The test may not be appropriate in immunocompromised persons. CONTINUED ON NEXT PAGE * ML=Testing performed at Main Lab DEPARTMENT OF PATHOLOGY, [facility] [employer] [place], [place] [address] Gigi Miranda M.D. Director [facility] Permit #[id number] RUN DATE: 01/08/13 [facility] LAB LIVE PAGE 2 RUN TIME: [address] [place] [address] Specimen Inquiry Patient: LAURENCE PEREZ Rivera [id number] (Continued) Specimen: [id number] Collected: 01/08/13 Received: 01/08/13-1201 (Continued) Procedure Result Verified Site Fecal Lactoferrin (Stool WBC) Final (continued) 01/08/13- 1421 Fecal samples from breast fed infants should not be used with this assay. Stool Occult Blood Final 01/08/13- 1230 ML Stool Occult Blood Negative END OF REPORT * ML=Testing performed at Main Lab DEPARTMENT OF PATHOLOGY, [facility] [employer] [place], [place] [address] Gigi Miranda M.D. Director [facility] Permit #[id number] RUN DATE: 01/08/13 [facility] LAB LIVE PAGE 1 RUN TIME: [address] [place] [address] Specimen Inquiry Name: LAURENCE PEREZ : [address]: Victor Hugo Root MD Acct: [id number] Unit: [id number] AGE: 42 Location: [facility] Re01/07/13 SEX: F Status: REG REF SPEC: [id number] LAYO: 01/07/13-[address]: Victor Hugo Root MD REQ: [id number] RECD: 01/07/13 STATUS: RES _ SOURCE: STOOL SPDESC: ORDERED: Stool Culture, O P: Giar/Crypt COMMENTS: NO PLAIN CONTAINER RECEIVED OF 1530 ON 01/07/13 QUERIES: Medent Number [id number] Procedure Result Verified Site Stool Culture PENDING Stool Specimen Description Final 01/08/13- 0755 ML Test not performed Shiga Toxin 1 2 Final 01/08/13- 1100 ML Organism 1 Negative Shiga Toxin 1 2 Immunochromatographic Assay O P: Giardia/Cryptospor Screen Final 01/08/13- 1206 ML Organism 1 Neg Cryptosporidium/Giardia Giardia and cryptosporidium antigen testing performed by enzyme immunoassay. If patient is immunocompromised or has traveled to or is from a developing country, a full ova and parasite exam with microscopic (OPMIC) is recommended. All samples will be held one month in case full ova and parasite testing is requested. Contact the Microbiology Department at [phone]. TEST LIMITATIONS: As with all diagnostic procedures, the results obtained should be used in conjunction with other clinical information available the physician. Negative results can occur in samples containing antigen below lower limits of detection of the assay. The use of colonic washes, CONTINUED ON NEXT PAGE * ML=Testing performed at Main Lab DEPARTMENT OF PATHOLOGY, [facility] [employer] [place] [address] Gigi Miranda M.D. Director [facility] Permit #[id number] RUN DATE: 01/08/13 [facility] LAB LIVE PAGE 2 RUN TIME: [address] [facility] [employer] [place], [place] [address] Specimen Inquiry Patient: LAURENCE PEREZ [id number] (Continued) Specimen: [id number] Collected: 01/07/13-999 Received: 01/07/13-1348 (Continued) Procedure Result Verified Site O P: Giardia/Cryptospor Screen Final (continued) 01/08/13- 1206 aspirates or other diluted sample types has not been established and could affect the performance of the assay. Stool samples contaminated with an oily or particulate base (eg. Barium, mineral oil etc.) could interfere with the test and are not recommended. END OF REPORT * ML=Testing performed at Main Lab DEPARTMENT OF PATHOLOGY, [facility] [employer] [place], [place] [address] Gigi Miranda M.D. Director [facility] Permit #[id number] RUN DATE: 01/09/13 [facility] LAB LIVE PAGE 1 RUN TIME: [address] [facility] [employer] [place], [place] [address] Specimen Inquiry Name: LAURENCE PEREZ : [address]: Victor Hugo Root MD Acct: [id number] Unit: [id number] AGE: 42 Location: [facility] Re01/07/13 SEX: F Status: REG REF SPEC: [id number] LAYO: 01/07/13-[address]: Victor Hugo Root MD REQ: [id number] RECD: 01/07/13 STATUS: COMP _ SOURCE: STOOL SPDESC: ORDERED: Stool Culture, O P: Giar/Crypt COMMENTS: NO PLAIN CONTAINER RECEIVED OF 1530 ON 01/07/13 QUERIES: Medent Number [id number] Procedure Result Verified Site Stool Culture Final 01/09/13- 1101 ML Result No enteric pathogens isolated Testing for Salmonella, Shigella, Aeromonas, Plesiomonas, Yersinia and Campylobacter are included in a Stool Culture. Vibrio spp not routinely tested for in a stool culture. If testing is desired, please request specifically when placing test order. Sensitivities not routinely performed on stool isolates, as antibiotics may prolong the carriage rate of bacteria. Please contact the microbiology lab if sensitivities are required. Stool Specimen Description Final 01/08/13- 0755 ML Test not performed Shiga Toxin 1 2 Final 01/08/13- 1100 ML Organism 1 Negative Shiga Toxin 1 2 Immunochromatographic Assay O P: Giardia/Cryptospor Screen Final 01/08/13- 1206 ML Organism 1 Neg Cryptosporidium/Giardia CONTINUED ON NEXT PAGE * ML=Testing performed at Main Lab DEPARTMENT OF PATHOLOGY, [facility] [employer] [place] [address] Gigi Miranda M.D. Director [facility] Permit #[id number] RUN DATE: 01/09/13 [facility] LAB LIVE PAGE 2 RUN TIME: [address] [facility] [employer] [place], [place] [address] Specimen Inquiry Patient: LAURENCE PEREZ [id number] (Continued) Specimen: [id number] Collected: 01/07/13-999 Received: 01/07/13 (Continued) Procedure Result Verified Site O P: Giardia/Cryptospor Screen Final (continued) 01/08/13- 1206 Giardia and cryptosporidium antigen testing performed by enzyme immunoassay. If patient is immunocompromised or has traveled to or is from a developing country, a full ova and parasite exam with microscopic (OPMIC) is recommended. All samples will be held one month in case full ova and parasite testing is requested. Contact the Microbiology Department at [phone]. TEST LIMITATIONS: As with all diagnostic procedures, the results obtained should be used in conjunction with other clinical information available the physician. Negative results can occur in samples containing antigen below lower limits of detection of the assay. The use of colonic washes, aspirates or other diluted sample types has not been established and could affect the performance of the assay. Stool samples contaminated with an oily or particulate base (eg. Barium, mineral oil etc.) could interfere with the test and are not recommended. END OF REPORT * ML=Testing performed at Main Lab DEPARTMENT OF PATHOLOGY, [address] [place] [address] Gigi Miranda M.D. Director [facility] Permit #[id number] 53 -- REFERENCE VALUE -- <4.0 (Negative) 54 -- REFERENCE VALUE -- <6.0 (Negative) Test Performed by: [address] [address] Kayaking Instructor: Rudi Erickson III, M.D. 55 Because ethnic data is not always readily available, this report includes an eGFR for both -Americans and non- Americans. The National Kidney Disease Education Program (NKDEP) does not endorse the use of the MDRD equation for patients that are not between the ages of 18 and 70, are , have extremes of body size, muscle mass, or nutritional status, or are non- or non-. According to the National Kidney Foundation, irrespective of diagnosis, the stage of the disease is based on the level of kidney function: Stage Description GFR(mL/min/1.73 m(2)) 1 Kidney damage with normal or decreased GFR 90 2 Kidney damage with mild decrease in GFR 60-89 3 Moderate decrease in GFR 30-59 4 Severe decrease in GFR 15-29 5 Kidney failure <15 (or dialysis) 56 Anion gap measurement may be of limited value in the presence of any alkalosis, especially in a combined acid base disorder. . 57 Because ethnic data is not always readily available, this report includes an eGFR for both -Americans and non- Americans. The National Kidney Disease Education Program (NKDEP) does not endorse the use of the MDRD equation for patients that are not between the ages of 18 and 70, are , have extremes of body size, muscle mass, or nutritional status, or are non- or non-. According to the National Kidney Foundation, irrespective of diagnosis, the stage of the disease is based on the level of kidney function: Stage Description GFR(mL/min/1.73 m(2)) 1 Kidney damage with normal or decreased GFR 90 2 Kidney damage with mild decrease in GFR 60-89 3 Moderate decrease in GFR 30-59 4 Severe decrease in GFR 15-29 5 Kidney failure <15 (or dialysis) 58 REFERENCE RANGE: 0-60..........NORMAL 60-90.........BORDERLINE ABOVE 90......HIGH Please note the change in Reference Range EFFECTIVE 06 Please note: Test was performed using the [employer] SWEAT-CHEK conductivity analyzer and is meant as a screening test only. The test result in mmol/L represents the molar concentration of sodium chloride in the sample. Patients having an elevated sweat conductivity value should have a quantitative sweat chloride test performed at a cystic fibrosis center. . 59 Anion gap measurement may be of limited value in the presence of any alkalosis, especially in a combined acid base disorder. . 60 A metabolite of Naproxen, O-desmethylnaproxen, has been shown to interfere with the [place] method for measuring total bilirubin. Samples from patients who have taken Naproxen have shown spurious elevation in total bilirubin levels. 61 Because ethnic data is not always readily available, this report includes an eGFR for both -Americans and non- Americans. The National Kidney Disease Education Program (NKDEP) does not endorse the use of the MDRD equation for patients that are not between the ages of 18 and 70, are , have extremes of body size, muscle mass, or nutritional status, or are non- or non-. According to the National Kidney Foundation, irrespective of diagnosis, the stage of the disease is based on the level of kidney function: Stage Description GFR(mL/min/1.73 m(2)) 1 Kidney damage with normal or decreased GFR 90 2 Kidney damage with mild decrease in GFR 60-89 3 Moderate decrease in GFR 30-59 4 Severe decrease in GFR 15-29 5 Kidney failure <15 (or dialysis) 62 RESULT: Results suggest past infection In most populations, at least 90% of the adult population will have been infected with EBV sometime in the past and therefore, will be positive for anti-VCA/IgG and anti-EBNA. Antibodies to EBNA develop 6-8 weeks after primary infection and remain present for life. Presence of VCA/IgM antibodies indicates recent primary infection with EBV. Test Performed by: [facility] D[facility] of Lab Med and Pathology [address] [place], [place] [id number] Kayaking Instructor: Rudi Erickson III, M.D. 63 Anion gap measurement may be of limited value in the presence of any alkalosis, especially in a combined acid base disorder. . 64 Note change in reference range as of 10/01/07. The change was based on recommendations from the [place] [employer]. 65 Please note change in reference range effective 07 . 66 A metabolite of Naproxen, O-desmethylnaproxen, has been shown to interfere with the [place]rass[place] method for measuring total bilirubin. Samples from patients who have taken Naproxen have shown spurious elevation in total bilirubin levels. 67 Because ethnic data is not always readily available, this report includes an eGFR for both -Americans and non- Americans. The National Kidney Disease Education Program (NKDEP) does not endorse the use of the MDRD equation for patients that are not between the ages of 18 and 70, are , have extremes of body size, muscle mass, or nutritional status, or are non- or non-. According to the National Kidney Foundation, irrespective of diagnosis, the stage of the disease is based on the level of kidney function: Stage Description GFR(mL/min/1.73 m(2)) 1 Kidney damage with normal or decreased GFR 90 2 Kidney damage with mild decrease in GFR 60-89 3 Moderate decrease in GFR 30-59 4 Severe decrease in GFR 15-29 5 Kidney failure <15 (or dialysis) 68 Anion gap measurement may be of limited value in the presence of any alkalosis, especially in a combined acid base disorder. . 69 -- REFERENCE VALUE -- <20.0 (Negative) 20.0-39.9 (Weak Positive) 40.0-59.9 (Positive) >=60.0 (Strong Positive) Test Performed by: [facility] of Lab Med [facility] Pathology [address] [place] [id number] Kayaking Instructor: Rudi Erickson III, M.D. 70 Anion gap measurement may be of limited value in the presence of any alkalosis, especially in a combined acid base disorder. . 71 Anion gap measurement may be of limited value in the presence of any alkalosis, especially in a combined acid base disorder. . 72 PLEASE NOTE NEW REFERENCE RANGES. Procedures Date CPT Code Description Status 02/23/2016 53243 EKG, at Least 12 Leads w/Interpretation and Report Completed 09/20/2014 07399 EKG, at Least 12 Leads w/Interpretation and Report Completed 07/04/2011 39030 Wearable ECG Monitor/Report W/Visual Superimposition Completed Scanning 07/02/2011 48734 EKG, at Least 12 Leads w/Interpretation and Report Completed Encounters Type Date Location Provider CPT E/M Dx Office Visit 05/02/2017 2:15p Main Office RYAN Ndiaye 52626 J01.90 E27.1 Office Visit 03/21/2017 11:30a [place] [address] J06.9 Office Visit 12/04/2016 3:15p Main Office Victor Hugo Root M.D. 12489 M54.2 Office Visit 11/20/2016 3:30p Main Office Victor Hugo Root M.D. 61935 M54.2 M54.30 Office Visit 11/18/2016 11:15a [place] [address] M25.549 R06.02 Z87.11 Office Visit 10/23/2016 4:00p [place] [address] M25.549 J01.90 Office Visit 10/07/2016 9:30a Main Office RYAN [place] 39464 J01.90 Office Visit 07/16/2016 3:00p Main Office RYAN Warren III 51434 R42 J18.9 Office Visit 05/22/2016 3:00p Main Office RYAN [place] 95723 M54.2 M25.50 Office Visit 03/20/2016 3:15p Main Office Victor Hugo Root M.D. 06087 F41.9 Office Visit 02/22/2016 4:45p Main Office Victor Hugo Root M.D. 04946 F41.9 Office Visit 08/30/2015 10:45a Main Office RYAN [place] 91894 N39.0 H81.10 Office Visit 11/01/2014 3:15p Main Office Victor Hugo Root M.D. 78998 Z00.00 E78.0 V06.5 Office Visit 10/14/2014 2:30p Main Office Justice Qiu III NAVIGATION OFFICER-C 64668 564.1 Office Visit 09/20/2014 4:00p Main Office CRISTIAN Warren IIIP-C 75179 786.50 Office Visit 07/16/2014 11:30a Main Office Victor Hugo Root M.D. 24854 461.8 Office Visit 07/13/2013 2:15p Main Office Victor Hugo Root M.D. 41597 723.1 Office Visit 06/22/2013 9:30a Main Office MARCELLO Ndiaye-C 93411 723.1 719.41 Office Visit 01/05/2013 3:45p Main Office Victor Hugo Root M.D. 68911 787.01 Office Visit 01/20/2012 11:45a Main Office RYAN [place] 96882 466.0 Office Visit 07/22/2011 9:30a Main Office RYAN [place] 47717 989.5 Office Visit 07/02/2011 3:30p Main Office Victor Hugo Root M.D. 68559 785.1 785.1 Office Visit 10/25/2010 3:45p Main Office MARCELLO Ndiaye-C 88328 786.2 372.03 Office Visit 08/10/2010 3:30p Main Office MARCELLO Ndiaye-C 41923 461.0 Office Visit 12/28/2008 4:00p Main Office Codi Sparrow 10238 530.81 Office Visit 12/21/2008 10:30a Main Office Codi Sparrow 75184 789.06 Office Visit 06/23/2008 11:30a Main Office CRISTIAN NdiayeP-C 19654 300.00 Office Visit 04/05/2008 2:45p Main Office Victor Hugo Root M.D. 17994 716.98 Office Visit 12/12/2007 10:15a Main Office Mel Zapata M.D. 73496 466.0 Office Visit 06/05/2007 2:30p Main Office CRISTIAN NdiayeP-C 63692 493.90 625.3 424.0 Office Visit 04/15/2007 8:45a Main Office Victor Hugo Root M.D. 09493 465.9 Office Visit 03/23/2007 10:30a Main Office MARCELLO Ndiaye-C 13743 487.8 Office Visit 03/09/2007 3:15p Main Office CRISTIAN NdiayeP-C 04842 465.8 Office Visit 10/03/2006 12:00p Main Office Victor Hugo Root M.D. 97628 780.79 Office Visit 11/05/2005 4:45p Main Office Victor Hugo Root M.D. 42996 723.1 Office Visit 04/01/2005 1:15p Main Office Erick Miranda M.D. 69982 V70.0 Plan of Care 08/22/2017 - Faustino Milton, MDM48.02 Spinal stenosis, cervical regionComments :[facility] see [facility].Follow up:Make sure requested info was sent; please send this note.[id number] Encounter for other preprocedural examinationComments:The patient is estimated to be LOW risk for an INTERMEDIATE risk surgery. There are no medications that need to be adjusted prior to surgery.No chronic medical issues need to be optimized prior to the operation. She is not on any blood thinning medications that need to be held for surgery. There were no factors identified to delay an elective procedure. We would recommend proceeding with the planned procedure with the usual level of care.
--- NOTE | 2017-09-14 11:38 | ED ---
Shortness of Breath - HPI Summary HPI Summary: This is arley Kaminski documenting for attending Elier Cary MD. This patient is a 47 year old F BIBA with a chief complaint of SOB since yesterday. Patient reports difficulty swallowing, thickness in her throat, and numbness in her fingers and toes. Pt had a neck surgery 5 days ago and thinks it may be related to her symptoms. Pt was in [place] for the neck surgery and became symptomatic on her drive back. - History of Current Complaint Time Seen by Provider: 09/14/17 11:16 Hx Obtained From: Patient Onset/Duration: Sudden Onset Timing: Constant Current Severity: Moderate Dyspnea At: Rest Associated Signs & Symptoms: Negative - Allergy/Home Medications Allergies/Adverse Reactions: Allergies Allergy/AdvReac Type Severity Reaction Status Date / Time amoxicillin [From Augmentin] Allergy Diarrhea Verified 09/14/17 11:50 clavulanic acid Allergy Diarrhea Verified 09/14/17 11:50 [From Augmentin] morphine Allergy Hives Verified 09/14/17 11:50 PMH/Surg Hx/FS Hx/Imm Hx Endocrine/Hematology History: Denies: Hx Diabetes Cardiovascular History: Denies: Hx Hypertension, Hx Pacemaker/ICD Respiratory History: Reports: Hx Asthma GI History: Reports: Hx Diverticulosis, Hx Gastroesophageal Reflux Disease, Hx Irritable Bowel, Hx Ulcer, Other GI Disorders - IBS; DIVERTICULOSIS History: Denies: Hx Renal Disease Musculoskeletal History: Reports: Hx Arthritis, Hx Back Problems Sensory History: Reports: Hx Contacts or Glasses Denies: Hx Hearing Aid Opthamlomology History: Reports: Hx Contacts or Glasses Neurological History: Reports: Hx Headaches Comment Only: Other Neuro Impairments/Disorders - PAIN CLINIC PT Psychiatric History: Reports: Hx Anxiety - does not take any meds for this Denies: Hx Panic Disorder - Cancer History Hx Chemotherapy: No Hx Radiation Therapy: No - Surgical History Surgery Procedure, Year, and Place: BREAST IMPLANTS. C SECTION. HYSTERECTOMY Infectious Disease History: Reports: History Other Infectious Disease - "TRAVELER'S DIARRHEA" Denies: Traveled Outside the [place] in Last 30 Days - Social History Alcohol Use: Occasionally Alcohol Amount: 3-4 drinks/week Substance Use Type: Reports: None Smoking Status (MU): Never Smoked Tobacco Have You Smoked in the Last Year: No Review of Systems Positive: Other - throat tightening Positive: Shortness Of Breath Positive: Numbness - fingers and toes All Other Systems Reviewed And Are Negative: Yes Physical Exam - Summary Physical Exam Summary: Appearance: The patient is well-nourished, appears anxious. Skin: The skin is warm and dry and skin color reflects adequate perfusion. Pts neck wound looks clean. HEENT: The head is normocephalic and atraumatic. The pupils are equal and reactive. The conjunctivae are clear and without drainage. Nares are patent and without drainage. Mouth reveals moist mucous membranes and the throat is without erythema and exudate. The external ears are intact. The ear canals are patent and without drainage. The tympanic membranes are intact. Neck: The neck is supple. There are no carotid bruits. There is no neck vein distension. Neck wound appears clean. Respiratory: Chest is non-tender. Lungs are clear to auscultation and breath sounds are symmetrical and equal. No stridor, no wheezes. Cardiovascular: Heart is regular rate and rhythm. There is no murmur or rub auscultated. There is no peripheral edema and pulses are symmetrical and equal. Abdomen: The abdomen is soft and non-tender. There are normal bowel sounds heard in all four quadrants and there is no organomegaly palpated. Musculoskeletal: There is no back tenderness noted. Extremities are non-tender with full range of motion. There is good capillary refill. There is no peripheral edema or calf tenderness elicited. Neurological: Patient is alert and oriented to person, place and time. The patient has symmetrical motor strength in all four extremities. Cranial nerves are grossly intact. Deep tendon reflexes are symmetrical and equal in all four extremities. Psychiatric: The patient has an appropriate affect and does not exhibit any anxiety or depression. Triage Information Reviewed: Yes Vital Signs Reviewed: Yes Diagnostics - Laboratory Result Diagrams: 09/14/17 11:50 09/14/17 11:50 Lab Statement: Any lab studies that have been ordered have been reviewed, and results considered in the medical decision making process. - CT Chest/Thorax CTA CT Interpretation Completed By: Radiologist - No evidence of pulmonary embolus is noted. Thoracic aorta demonstrates no evidence of aortic dissection. ED Physician has reviewed this report Neck CT CT Interpretation Completed By: Radiologist - A small amount of postoperative fluid is likely present surrounding the laminectomy site measuring up to 1.3 cm. This does not appear to encroach upon the thecal sac. There is a small amount of air in the soft tissues at the right posterior neck likely due to postoperative change. No evidence of abnormal hematoma is noted. No compression upon the pharynx or the larynx is noted. ED Physician has reviewed this report - EKG 11:37 Cardiac Rate: NL EKG Rhythm: Sinus Rhythm - [address] Segment: Normal Ectopy: None EKG Interpretation: No STEMI Course/Dx - Course Course Of Treatment: Ms. Mojica presented looking very anxious complaining of shortness of breath. 2 days ago she had a laminectomy in her neck and yesterday she drove back from [place]. The shortness of breath started on the drive back and is worse today. I could appreciate no stridor or wheezing and her vital signs were within normal limits. Labs are unremarkable, CTA of her chest ruled out a PE and CT of her neck showed no hematoma or abscess. She does not like to take medicine but accepted a small dose of Ativan for her anxiety and this seemed to help her out a lot. I don't think anything dangerous happening but I recommended discharge, close follow-up with her surgeon and a short course of Ativan. - Diagnoses Provider Diagnoses: Dyspnea, Anxiety Discharge - Sign-Out/Discharge Documenting (check all that apply): Patient Departure - discharge - Discharge Plan Condition: Stable Disposition: HOME Prescriptions: LORazepam TAB(*) [Ativan TAB(*)] 1 mg PO Q6H PRN #10 tab MDD 4 PRN Reason: Pain Patient Education Materials: Dyspnea (ED), Anxiety (ED) Referrals: Victor Hugo Root MD [Primary Care Provider] - 3 Days Additional Instructions: RETURN TO THE EMERGENCY DEPARTMENT FOR CHANGING OR WORSENING SYMPTOMS. - Billing Disposition and Condition Condition: STABLE Disposition: Home
[2017-09-14 11:58] LABS: ABS Basophils 0 10^3/ul (0-0.2); ABS Eosinophils 0.1 10^3/ul (0-0.6); ABS Lymphocytes 1.1 10^3/ul (1.0-4.8); ABS Monocytes 0.4 10^3/ul (0-0.8); ABS Neutrophils 4.9 10^3/ul (1.5-7.7); ABS Nucleated RBC 0 10^3/ul; Hematocrit 38 % (35-47); Hemoglobin 12.9 g/dl (12.0-16.0); Lymphocyte % 17.1 % (25-47); Mean Corpuscular HGB Conc 34 g/dl (31-36); Mean Corpuscular Hemoglobin 32 pg (27-31); Mean Corpuscular Volume 92 fL (80-97); Mean Platelet Volume 7.7 um3 (7.4-10.4); Nucleated Red Blood Cells % 0; Platelet Count 225 10^3/ul (150-450); Red Blood Count 4.09 10^6/ul (4.00-5.40); Red Cell Distribution Width 12 % (10.5-15); White Blood Count 6.4 10^3/ul (3.5-10.8)
[2017-09-14 12:14] LABS: EGFR Non-African American 63.8 (>60)
[2017-09-14] MEDS ORDERED: Iohexol 350* (CONTRAST) 500 ML MDV IV ONE (12:18)
--- NOTE | 2017-09-14 13:11 | RAD ---
Indication: Shortness of breath. Contrast: Administered 62.1 ml of OMNIPAQUE 350 mg/ml CTA of the chest performed without IV contrast administration. Coronal and sagittal reconstructed images were obtained. The pulmonary arterial tree is well opacified. No evidence of filling defects are noted to suggest pulmonary embolus. The thoracic aorta demonstrates no evidence of aortic dissection. No aneurysmal dilatation is noted. The heart demonstrates no pericardial effusion. The trachea and major bronchi appear patent. Lung wells demonstrate no evidence of alveolar consolidation. No evidence of pleural fluid, pneumonia or pneumothorax is noted. The patient has bilateral breast for placement. No axilla adenopathy is noted. The visualized abdominal organs are unremarkable. IMPRESSION: No evidence of pulmonary embolus is noted. Thoracic aorta demonstrates no evidence of aortic dissection.
--- NOTE | 2017-09-14 13:15 | RAD ---
Indication: Shortness of breath, recent surgery to the neck. CT of the soft tissues of the neck was performed after IV contrast administration. Coronal and sagittal reconstructed images were obtained. Skull base demonstrates no evidence of hematoma. No prevertebral soft tissue swelling is noted. No abnormal fluid collections are noted. No evidence of prevertebral hematoma. No evidence of tracheal compression is noted. Inferior thyroid lobes are unremarkable. Postoperative changes are noted with laminotomy at the right lamina at C5. A small fluid collection is noted just likely due to postoperative change. Small amount of soft tissue air is noted in the right posterior neck. No evidence of abnormal adenopathy is noted. The thyroid gland, submandibular gland and parotid glands are otherwise unremarkable. IMPRESSION: A small amount of postoperative fluid is likely present surrounding the laminectomy site measuring up to 1.3 cm. This does not appear to encroach upon the thecal sac. There is a small amount of air in the soft tissues at the right posterior neck likely due to postoperative change. No evidence of abnormal hematoma is noted. No compression upon the pharynx or the larynx is noted.
[2017-09-14] MEDS ORDERED: NS 0.9% 1000 ML* 1,000 ML IV ONE (13:21)
[2017-09-14] MEDS ORDERED: LORazepam INJ* 2 MG/ML 1 ML VIAL IV ONE (13:24)
[2017-09-14 15:03] VITALS: BP 128/83
== END 2017-09-14 16:30 | disposition home or self-care (01) ==
LOC: ED 11:15
DX: R06.00 Dyspnea, unspecified (principal); F41.9 Anxiety disorder, unspecified; Z98.890 Other specified postprocedural states; Z88.5 Allergy status to narcotic agent; Z88.3 Allergy status to other anti-infective agents
CPT/HCPCS: 36415; 70491; 71275; 80053; 83605; 84484; 85025; 93005; 96374; 99284; J2060; Q9967

== ENCOUNTER 2017-09-27 14:08 | Emergency (ER) | payer BC ==
--- NOTE | 2017-09-27 14:37 | ED ---
HPI Febrile Illness - HPI Summary HPI Summary: The pt is a 47 y/o female presenting to [facility] c/o sporadic subjective fever since 6 days ago. The fever is 109 F at its highest. 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 The pt had a 2-week post-surgical follow up yesterday during which she was advised to come to the ED out of concern for a post-surgical infection. The pt also notes a rash in her LE , neck pain, and insomnia (due to the neck pain). She suspects that the rash is due to the iodine used in a previous CT scan. The pt has taken Motrin and Tylenol. This is scribe Antonina Cui documenting for attending Elier Al MD. I, Elier Al MD, personally performed the services described in this documentation as scribed in my presence and it is both accurate and complete. - History of Current Complaint Chief Complaint: EDFever Time Seen by Provider: 09/27/17 14:30 Hx Obtained From: Patient Hx Last Menstrual Period: 1 1/2 WEEKS AGO Onset/Duration: Started Days Ago - 6 days, Worse Since - Today Timing: Intermittent Current Severity: Moderate Pain Intensity: 4 Pain Scale Used: 0-10 Numeric Alleviating Factors: OTC Medicine - Tylenol, Motrin , Ibuprofen Associated Signs and Symptoms: Rash, Other: - Positive: neck pain, and insomnia (due to the neck pain) - Allergy/Home Medications Allergies/Adverse Reactions: Allergies Allergy/AdvReac Type Severity Reaction Status Date / Time amoxicillin [From Augmentin] Allergy Diarrhea Verified 09/27/17 14:44 clavulanic acid Allergy Diarrhea Verified 09/27/17 14:44 [From Augmentin] Iodinated Contrast- Oral and Allergy Hives Verified 09/27/17 14:44 IV Dye morphine Allergy Hives Verified 09/27/17 14:44 Home Medications: Home Medications Beclomethasone Dipropionate [Qnasl] 80 mcg BOTH NARES DAILY 09/27/17 [History Confirmed 09/27/17] [place]-3/Dha/Epa/Fish Oil 1 cap PO DAILY 09/27/17 [History Confirmed 09/27/17] PMH/Surg Hx/FS Hx/Imm Hx Previously Healthy: No Endocrine/Hematology History: Denies: Hx Diabetes Cardiovascular History: Denies: Hx Hypertension, Hx Pacemaker/ICD Respiratory History: Reports: Hx Asthma GI History: Reports: Hx Diverticulosis, Hx Gastroesophageal Reflux Disease, Hx Irritable Bowel, Hx Ulcer, Other GI Disorders - IBS; DIVERTICULOSIS History: Denies: Hx Renal Disease Musculoskeletal History: Reports: Hx Arthritis, Hx Back Problems Sensory History: Reports: Hx Contacts or Glasses Denies: Hx Hearing Aid Opthamlomology History: Reports: Hx Contacts or Glasses Neurological History: Reports: Hx Headaches Comment Only: Other Neuro Impairments/Disorders - PAIN CLINIC PT Psychiatric History: Reports: Hx Anxiety - does not take any meds for this Denies: Hx Panic Disorder - Cancer History Hx Chemotherapy: No Hx Radiation Therapy: No - Surgical History Surgery Procedure, Year, and Place: BREAST IMPLANTS. C SECTION. HYSTERECTOMY Infectious Disease History: No Infectious Disease History: Reports: History Other Infectious Disease - "TRAVELER'S DIARRHEA" Denies: Traveled Outside the [place] in Last 30 Days - Social History Occupation: Employed Full-time Lives: With Family Alcohol Use: Occasionally Alcohol Amount: 3-4 drinks/week Substance Use Type: Reports: None Smoking Status (MU): Never Smoked Tobacco Have You Smoked in the Last Year: No Review of Systems Positive: Fever - Highest at 109 F, Other - Positive: Insomnia (due to te neck pain ), Rash in the bilateral LE Positive: Other - Positiv : Neck pain All Other Systems Reviewed And Are Negative: Yes Physical Exam - Summary Physical Exam Summary: Appearance: The patient is well-nourished in no acute distress and in no acute pain. Skin: Surgical incision looks clean. The skin is warm and dry and skin color reflects adequate perfusion. HEENT: The head is normocephalic and atraumatic. The pupils are equal and reactive. The conjunctivae are clear and without drainage. Nares are patent and without drainage. Mouth reveals moist mucous membranes and the throat is without erythema and exudate. The external ears are intact. The ear canals are patent and without drainage. The tympanic membranes are intact. Neck: The neck is supple with full range of motion and non-tender. There are no carotid bruits. There is no neck vein distension. Respiratory: Chest is non-tender. Lungs are clear to auscultation and breath sounds are symmetrical and equal. Cardiovascular: Heart is regular rate and rhythm. There is no murmur or rub auscultated. There is no peripheral edema and pulses are symmetrical and equal. Abdomen: The abdomen is soft and non-tender. There are normal bowel sounds heard in all four quadrants and there is no organomegaly palpated. Musculoskeletal: There is no back tenderness noted. Extremities are non-tender with full range of motion. There is good capillary refill. There is no peripheral edema or calf tenderness elicited. Neurological: No meningeal signs; Patient is alert and oriented to person, place and time. The patient has symmetrical motor strength in all four extremities. Cranial nerves are grossly intact. Deep tendon reflexes are symmetrical and equal in all four extremities. Psychiatric: The patient has an appropriate affect and does not exhibit any anxiety or depression. Triage Information Reviewed: Yes Vital Signs On Initial Exam: Initial Vitals Temp Pulse Resp BP Pulse Ox 98 F 69 16 148/82 100 09/27/17 14:24 09/27/17 14:24 09/27/17 14:24 09/27/17 14:24 09/27/17 14:24 Vital Signs Reviewed: Yes Diagnostics - Vital Signs Vital Signs Temp Pulse Resp BP Pulse Ox 09/27/17 14:24 98 F 69 16 148/82 100 - Laboratory Result Diagrams: 09/27/17 15:00 09/27/17 15:00 Lab Statement: Any lab studies that have been ordered have been reviewed, and results considered in the medical decision making process. Re-Evaluation - Re-Evaluation First Eval Re-Evaluation Time: 16:23 Change: Improved - The pt declined n MRI and is ready to go home. Course/Dx - Course Course Of Treatment: Ms. Mojica presented complaining that she been having intermittent fevers for a couple of days. She is about 2 weeks out from a cervical laminectomy. She was here with postoperative symptoms about a week ago and received a CT scan with contrast which she reports having an allergic reaction to starting the day after she was discharged. Her labs at that time were normal. She was afebrile on arrival here with normal vital signs and labs were rechecked and also normal. An MRI was ordered however she wanted to forego it for now as she has a wedding to attend. She was reassured that her labs are within normal limits. I think infection is unlikely but I cannot completely rule it out without the MRI scan and she is aware of this. - Diagnoses Provider Diagnoses: Fever Discharge - Sign-Out/Discharge Documenting (check all that apply): Patient Departure - DC - Discharge Plan Condition: Stable Disposition: HOME Patient Education Materials: Fever in Adults (ED) Referrals: Victor Hugo Root MD [Primary Care Provider] - 3 Days (Follow up with your PCP in 3 days ) Additional Instructions: Return to ED for any new or worsening symptoms - Billing Disposition and Condition Condition: STABLE Disposition: Home
[2017-09-27 15:17] LABS: ABS Basophils 0 10^3/ul (0-0.2); ABS Eosinophils 0.1 10^3/ul (0-0.6); ABS Lymphocytes 1.6 10^3/ul (1.0-4.8); ABS Monocytes 0.5 10^3/ul (0-0.8); ABS Nucleated RBC 0 10^3/ul; Eosinophil % 1.3 % (0-6); Hematocrit 34 % (35-47); Hemoglobin 11.6 g/dl (12.0-16.0); Lymphocyte % 19.2 % (25-47); Mean Corpuscular HGB Conc 34 g/dl (31-36); Mean Corpuscular Hemoglobin 31 pg (27-31); Mean Corpuscular Volume 91 fL (80-97); Mean Platelet Volume 7.4 um3 (7.4-10.4); Nucleated Red Blood Cells % 0; Platelet Count 251 10^3/ul (150-450); Red Blood Count 3.74 10^6/ul (4.00-5.40); Red Cell Distribution Width 13 % (10.5-15); White Blood Count 8.2 10^3/ul (3.5-10.8)
[2017-09-27 15:30] LABS: EGFR Non-African American 75.8 (>60)
--- OUTSIDE RECORDS SUMMARY | 2017-09-27 15:31 | XMS REPORT ---
:1970 External Reference #:[id number] Author Organization [facility] Address [address] [place] [address] Phone [phone] Care Team Providers Name Role Phone Evin Brennercelestecarlos JACEK Primary Care Physician Unavailable Payers Type Date Identification Numbers Payment Provider Subscriber Commercial Effective: Policy Number: [id number] Marcelle RENZO Balta Chris 2010 Expires: 2010 Group Name: [place] [address] PayID: [id number] BRENDAN Ibarra [id number] Medigap Part B Effective: 2010 Policy Number: Marcelle RENZO Aguileraig Chris [id number] Group Name: [employer] [address] PayID: [id number] BRENDAN Ibarra [id number] Problems Description No Active Problems Family History Date Family Member(s) Problem(s) Comments General [place] Father Hypertension Father Hypercholesterolemia Father CAD no [place]. 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 Work Status Currently Working Hand Dominance Right-handed [...] active urticaria 04/01/2005 Augmentin active C. Difficile 09/15/2017 Contrast Dye active Iodine based, caused rash Medications Medication Date Status Form Strength Qnty SIG Indications Ordering Provider Vitamin B-12 05/02 Active Tablets 500mcg 30tabs 1 by Radames mouth Tenzin Brenner, every day [employer] Vitamin C Plus 05/02 Active Chewtabs 500mg Radames Sheppard MARCELLO Garay-Berta Qnasl 05/02 Active Aerosol 80mcg/Act 8.700gm 2 sprays J01.90 west each Tenzin Brenner nostril MARCELLO-Berta daily Omeprazole 11/[address] 20mg [...] 10mg 30tabs 1 po qd Unknown /0000 Charlotte 3 Active Capsules Unknown /0000 Curcumin 95 Active Capsules 500mg daily Unknown /0000 Turmeric Active Capsules 1 by Unknown /0000 mouth every day Vitamin D3 Active Capsules 1 by Unknown /0000 mouth every day Vitamin D High 05/02 Hx Capsules 1000Unit 90caps daily Radames Tenzin Brenner - [employer] 08/22 Clarithromycin 05/02 Hx Tablets 500mg 20tabs 1 by J01.90 Shawnt mouth Tenzin Brenner, - twice a [employer] 05/12 day for sinusitis Prednisone 11/18 Hx Tablets 20mg 20tabs take 3 M25.549 Faustino tabs by Karine - mouth x 3 , MD 03/21 days, then 2 tabs by mouth x 3 days, then 1 tab by mouth x 3 days then 1/2 tab by mouth x 4 days Cefuroxime 10/07 Hx Tablets 500mg 20tabs one by J01.90 Renetta Axetil /2016 mouth Manav, - twice a [employer] 11/18 day for 10 days Meclizine HCL 07/16 Hx Tablets 25mg 30tabs one R42 Justice tablet by Uyen - mouth up III, 08/22 to three [employer] times daily for vertigo Doxycycline 07/16 Hx Tablets 100mg 20tabs 1 tab by J18.9 Justice Hyclate /2016 mouth Royal - twice a III, 10/07 day for [employer] 10 days for infection Propranolol HCL 03/20 Hx Tablets 10mg 30tabs 1-2 by F41.9 Victor Hugo mouth Root, - three M.D. 10/07 times a day as needed for anxiety Escitalopram 02/21 Hx Tablets 10mg 30tabs 1/2 by F41.9 Victor Hugo Oxalate mouth Root, - every day M.D. 03/20 x 8 days, then 1 po qd Fluticasone 11/28 Hx Suspension 50mcg/Act 48units 1-2 Victor Hugo Propionate Sprays Root, - Intranasa M.D. 03/23 l Every Day Flonase Allergy 09/10 Hx Suspension 50mcg/Act 3units 1-2 Victor Hugo Relief sprays Root, - intranasa M.D. 10/19 l every day Cipro 08/29 Hx Tablets 500mg 10tabs one twice N39.0 Renetta a day x 5 Manav, - days [employer] 02/21 Doxycycline 07/16 Hx Capsules 100mg 20caps 1 by 461.8 Victor Hugo Monohydrate mouth Root, - twice a M.D. 09/04 day x days Cyclobenzaprine 07/13 Hx Tablets 5mg 30tabs 1-2 by 723.1 mouth Root, - three M.D. 09/20 times day as needed Gabapentin 06/22 Hx Capsules 300mg 60caps take 1 723.1 capsule Tenzin Jordin, - by mouth [employer] 09/20 two times a day for nerve pain. Ranitidine HCL 01/05 Hx Tablets 150mg 60tabs take 1 787.01 tablet Ivett, - daily to M.D. 10/31 twice daily if needed Azithromycin 01/19 Hx Tablets 250mg 6tabs take 2 466.0 tablets Manav, - today [employer] 08/11 then tablet daily for the next 4 days Benzonatate 01/19 Hx Capsules 100mg 30caps 1 or 2 466.0 tabs po Manav, - tid prn [employer] 08/11 coughing Gentamicin 10/25 Hx Solution 0.3% 1Bott[facility] 2 [facility] R. Jordin, - 4 times [employer] 06/10 daily 5 days for conjuctiv itis Azelastine HCL 10/25 Hx Solution 0.05% 1month 1 drop 372.03 each eye RPaulina Brenner, - bid for [employer] 06/10 allergies Clarithromycin 08/10 Hx Tablets 500mg 20tabs 1 po bid 461.0 for sinus RPaulina Brenner, - infection [employer] 06/10 Nexium 12/[address] 40mg 90caps 1 po qd 530.81 Ivett, - M.D. 09/20 Propranolol HCL 06/23 Hx Tablets 10mg 60tabs 1 po bid 300.00 for R. Jordin, - anxiety/p [employer] 06/10 alpitatio ns Xanax 06/23 Hx Tablets 0.25mg twenty 1/2 to 1 300.00 po bid Tenzin Brenner, - prn [employer] 05. Xopenex HFA 12/11 Hx Aerosol 45mcg/Act 1units ii puffs 466.0 every 4 K.W. - to 6 Benny, 10/25 hours as M.D. needed for wheezing, dyspnea Bactrim DS 12/11 Hx Tablets 800-160 20tabs 1 po bid 466.0 K.W. - Benny, 12/11 M.D. Zithromax Z-Leonidas 12/11 Hx Tablets 250mg 6tabs two po qd 466.0 today and K.W. - then one Benny, 07/13 po qd for M.D. 4 days Zithromax 04/20 Hx Tablets 250mg 6tabs 2 On Day One, Then Ivett, - One qd X4 M.D. Codeine/Acetamin 03/23 Hx Tablets 30-300mg 48tabs 1-2 po 487.8 Shawnti q6hr prn Tenzin Brenner, - pain [employer] 06/04 No Work 03/23 Hx no work 487.8 nt due to Tenzin Brenner, - illness, [employer] 06/04 return once better Tri-Sprintec 09/28 Hx [...] JPaulina Metered Dose /2005 Q 4-6 HRS Bernarda Miranda - demarcon Antonia 12/11 Flonase Hx Suspension 50mcg/Act 3units 1-2 sprays Riri Root M.D. 09/10 l day Singulair Hx Tablets 10mg 30tabs one qd at [place], /0000 hs Vern singer MD 10/03 Vesicare Hx Tablets 5mg 1 PO Unknown /0000 Daily - 09/20 Xifaxan Hx Tablets 550mg 1 po bid Unknown /0000 - 10/31 Pepcid ac Hx Chewtabs 10mg Unknown /0000 - 09/20 Immunizations CPT Code Status Date Vaccine Lot # [id number] Given 12/12/2015 Influenza Virus Vaccine, Quadrivalent, 3 Yr > Quad, Preserv Free 46992 Given 11/22/2014 Influenza Virus Vaccine, Quadrivalent, 3 Yr > [id number] Quad, Preserv Free 60504 Given 11/01/2014 Tdap (Adacel) [id number] 11411 Given 11/24/2013 Influenza Virus Vaccine, Quadrivalent, 3 Yr > Quad, Preserv Free 68435 Given 10/22/2012 Influenza Vaccine-Preservative Free 3 Yrs And [id number] Above 17689 Given 06/02/2012 Hepatitis A, Adult [id number] 87317 Given 11/21/2011 Hepatitis A, Adult [id number] 42063 Given 11/18/2011 Influenza Vaccine-Preservative Free 3 Yrs And [id number] Above 65751 Given 11/15/2010 Influenza Vaccine-Preservative Free 3 Yrs And [id number] Above 56173 Given 11/27/2007 Influenza Virus Vaccine, 3 Yrs And Above [id number] 76758 Given 05/04/2004 Hep B Vaccine Adult, 3 Dose age >20 yrs 59820 Given 04/06/2004 Hep B Vaccine Adult, 3 Dose age >20 yrs [id number] Refused 08/22/2017 Influenza Virus Vaccine, Quadrivalent, 3 Yr > Quad , Preserv Free Vital Signs Date Vital Result Comment 09/15/2017 Weight 144.00 lb Weight in kg's 65.318 BP Systolic 110 mmHg BP Diastolic 78 mmHg Heart Rate 78 /min Body Temperature 99.2 F Respiratory Rate 16 /min O2 % BldC Oximetry 98 % 08/22/2017 Weight 148.00 lb Weight in kg's [...] Test Date Test Result H/L Range Note Laboratory test finding 09/14/2017 Troponin-I (TnI) 0.00 ng/mL <0.04 Laboratory test finding 09/14/2017 Lactic Acid 1.7 mmol/L 0.5-2.0 1 CBC Auto Diff 09/14/2017 White Blood Count 6.4 10^3/uL 3.5-10.8 Red Blood Count 4.09 10^6/uL 4.00-5.40 Hemoglobin 12.9 g/dL 12.0-16.0 Hematocrit 38 % 35-47 Mean Corpuscular Volume 92 fL 80-97 Mean Corpuscular Hemoglobin 32 pg High 27-31 Mean Corpuscular HGB Conc 34 g/dL 31-36 Red Cell Distribution Width 12 % 10.5-15 Platelet Count 225 10^3/uL 150-450 Mean Platelet Volume 7.7 um3 7.4-10.4 Abs Neutrophils 4.9 10^3/uL 1.5-7.7 Abs Lymphocytes 1.1 10^3/uL 1.0-4.8 Abs Monocytes 0.4 10^3/uL 0-0.8 Abs Eosinophils 0.1 10^3/uL 0-0.6 Abs Basophils 0 10^3/uL 0-0.2 Abs Nucleated RBC 0 10^3/uL Granulocyte % 75.9 % 38-83 Lymphocyte % 17.1 % Low 25-47 Monocyte % 5.6 % 0-7 Eosinophil % 1.0 % 0-6 Basophil % 0.4 % 0-2 Nucleated Red Blood Cells % 0 Comp Metabolic Panel 09/14/2017 Sodium 137 mmol/L 135-145 Potassium 3.8 mmol/L 3.5-5.0 Chloride 104 mmol/L 101-111 Co2 Carbon Dioxide 21 mmol/L Low 22-32 Anion Gap 12 mmol/L High 2-11 Glucose 105 mg/dL High 70-100 Blood Urea Nitrogen 9 mg/dL 6-24 Creatinine 0.94 mg/dL 0.51-0.95 BUN/Creatinine Ratio 9.6 8-20 Calcium 9.6 mg/dL 8.6-10.3 Total Protein 7.3 g/dL 6.4-8.9 Albumin 4.3 g/dL 3.2-5.2 Globulin 3.0 g/dL 2-4 Albumin/Globulin Ratio 1.4 1-3 Total Bilirubin 0.60 mg/dL 0.2-1.0 Alkaline Phosphatase 68 U/L 34-104 Alt 8 U/L 7-52 Ast 23 U/L 13-39 Egfr Non- 63.8 >60 Egfr 77.2 >60 2 Laboratory test finding 09/14/2017 Lactic Acid 3.6 mmol/L High 0.5-2.0 3 CBC Auto Diff 05/03/2017 White Blood Count [...] 0.34-5.60 Horm) Free Cortisol Serum 0.267 g/dL 4 Flu Test A, B, Or A & B,Binaxn 03/21/2017 Influenza A Antigen neg Influenza B Antigen neg Laboratory test finding 01/10/2017 Cortisol 22.04 g/dL 5, 6 Laboratory test finding 01/10/2017 Cortisol 22.38 g/dL 7 Laboratory test finding 01/10/2017 Cortisol 18.20 g/dL 8, 9 Laboratory test finding 01/10/2017 Cortisol 13.86 g/dL 10, 11 CBC Auto Diff 11/18/2016 White Blood Count [...] Sed Rate 17 mm/Hr High 0- 14 12 Ferritin 53.9 ng/mL 11-307 13 Liver Function Panel 11/18/2016 Total Protein 7.2 g/dL 6.4-8.9 Albumin 4.5 g/dL 3.2-5.2 Globulin 2.7 g/dL 2-4 Albumin/Globulin Ratio 1.7 1-3 Total Bilirubin 0.40 mg/dL 0.2-1.0 Direct Bilirubin 0.10 mg/dL 0.03-0.18 Indirect Bilirubin 0.3 mg/dL 0.3-1.0 Alkaline Phosphatase 58 U/L 34-104 Alt 7 U/L 7-52 Ast 17 U/L 13-39 Laboratory test finding 11/18/2016 Lyme Disease Serology Negative Negative 14 CBC Auto Diff 10/23/2016 White Blood Count [...] 10/23/2016 Erythrocyte Sed Rate 11 mm/Hr 0-14 15 Basic Metabolic Panel 10/23/2016 Sodium 136 mmol/L 133-145 Potassium 3.9 mmol/L 3.5-5.0 Chloride 102 mmol/L 101-111 Co2 Carbon Dioxide 29 mmol/L 22-32 Anion Gap 5 mmol/L 2-11 Glucose 78 mg/dL 70-100 Blood Urea Nitrogen 10 mg/dL 6-24 Creatinine 0.86 mg/dL 0.51-0.95 BUN/Creatinine Ratio 11.6 8-20 Calcium 9.1 mg/dL 8.6-10.3 Egfr Non- 71.0 >60 Egfr 91.4 >60 16 Laboratory test finding 10/23/2016 C Reactive Protein < 1.00 mg/L < 5.00 17 Laboratory test finding 05/22/2016 Anaplasma Phagocytophilium <1:64 titer <1:64 18 C Reactive Protein < 1.00 mg/L < 5.00 19 CBC Auto Diff 05/22/2016 White Blood Count [...] Egfr Non- 61.8 >60 Egfr 79.5 >60 20 Laboratory test finding 05/22/2016 Rheumatoid Factor <15 IU/mL <15 21 Lyme Western Blot 05/22/2016 Lyme Disease IgG Ab WB Negative Negative Lyme Disease IgG Bands Present p41, kDa Lyme Disease IgM Ab WB Negative Negative Lyme Disease IgM Bands Present p41, kDa Lyme Disease Interpretation See Comment 22 Laboratory test finding 05/22/2016 Vitamin D Total 25(Oh) 37.2 ng/mL 30- 50 23 Cyclic Citrullinated Pep Igg <15.6 U 24 Erythrocyte Sed Rate 14 mm/Hr 0-14 25 Babesia Microti Abs (Igg,Igm) 05/22/2016 Babesia microti IgG <1:64 Babesia microti IgM <1:20 Babesia microti Interpretation See Comment 26 CBC Auto Diff 02/23/2016 White Blood Count [...] Egfr Non- 71.4 >60 Egfr 91.8 >60 27 Laboratory test 02/23/2016 TSH (Thyroid Stim Horm) 1.57 mcIU/mL 0.34- 5.60 28 finding Laboratory test 08/30/2015 Urine Culture And SEE RESULT BELOW 29 finding Sensitivities Urine DIP 08/30/2015 Leukocytes ++ Neg Urine Nitrites NEG Neg Urobilinogen NORM Norm Total Protein, Urine NEG Neg Urine pH 6 5-6 Urine Blood 250 High Neg Specific [place] 1.005 Low 1.01-1.02 Urine Ketones NEG Neg Urine Bilirubin NEG Neg Urine Glucose NORM Norm Lipid Profile (Trig/Chol/HDL) 11/22/2014 Triglycerides 52 mg/dL 30, 31 Cholesterol 231 mg/dL 30, 32 HDL Cholesterol 66.2 mg/dL 30, 33 LDL Cholesterol 154 mg/dL 30, 34 Urine DIP 11/01/2014 Specific [place] 1.015 1.01-1.02 Urine pH 6 5-6 Leukocytes neg Neg Urine Nitrites neg Neg Total Protein, Urine neg Neg Urine Glucose norm Norm Urine Ketones neg Neg Urobilinogen norm Norm Urine Bilirubin neg Neg Urine Blood neg Neg Stool Panel ([facility]) 10/21/2014 Stool Culture SEE RESULT BELOW 35, 36 Fecal Lactoferrin (Stool WBC) SEE RESULT BELOW 35, 37 O&P: Giardia/Cryptospor Screen SEE RESULT BELOW 35, 38 Stool Occult Blood SEE RESULT BELOW 35, 39 Laboratory test finding 09/20/2014 Partial Thrombo Time 29.3 seconds 26.0 -36.3 PTT Inr/Protime 09/20/2014 Inr 0.90 0.78-1.07 CKMB 09/20/2014 CKMB ng/mL 2.2 ng/mL 0.6-6.3 Laboratory test finding 09/20/2014 Magnesium 2.1 mg/dL 1.9-2.7 Creatine Kinase 114 U/L 10-223 Troponin I 0.00 ng/mL <0.03 40 Comp Metabolic Panel 09/20/2014 Sodium 137 mmol/L [...] Egfr Non- 75.7 >60 Egfr 97.4 >60 41 Laboratory test finding 09/20/2014 Lactic Acid 0.8 mmol/L 0.5-2.2 B-Type Natriuretic Peptide BNP 38 pg/mL 42 CBC Auto Diff 09/20/2014 White Blood Count [...] finding 09/20/2014 Troponin I 0.00 ng/mL <0.03 43, 44 Arthritis Panel 07/13/2013 Erythrocyte Sed Rate 15 mm/Hr High 0-14 Uric Acid 3.4 mg/dL 2.3-6.6 Shweta (Anti-Nuclear AB) Screen Negative Negative Rheumatoid Factor <15 IU/mL <15 45 Lyme Western Blot 07/13/2013 Lyme Disease IgG Ab WB Negative Negative Lyme Disease IgG Bands Present p41, kDa Lyme Disease IgM Ab WB Negative Negative Lyme Disease IgM Bands Present No bands detecte <SEE NOTE> kDa 46 Lyme Disease Interpretation See Comment 47 Surgical Pathology 06/21/2013 S RUN DATE: <SEE NOTE> Clotest 06/21/2013 Clotest (SEE NOTE) 49 Throat-Beta Strept 06/19/2013 Throat Beta Strep (SEE NOTE) 50 Culture Stool For Blood 01/08/2013 Stool Occult Blood (SEE NOTE) 51 Laboratory test finding 01/08/2013 Fecal Lactoferrin (Stool (SEE NOTE) 52 WBC) C. difficile Amplified Dna (SEE NOTE) 53 Stool Panel ([facility]) 01/07/2013 O P: Giardia/Cryptospor Screen (SEE NOTE) 54 Stool Culture (SEE NOTE) 55 Transglutaminase Igg & Iga 01/05/2013 Tissue Transglutaminase IgA Ab <1.2 U/ mL 56 Tissue Transglutaminase IgG Ab 2.7 U/mL 57 Laboratory test finding 01/05/2013 TSH (Thyroid Stimulating [...] Egfr Non- 78.7 >60 Egfr 101.2 >60 58 Laboratory test finding 01/20/2012 Strep Screen NEG [...] Anion Gap 6.0 mmol/L 2-11 59 Glucose 98 mg/dL 70-100 BUN 12 mg/dL 6-24 Creatinine 0.8 mg/dL 0.50-1.40 One Over Creatinine 1.25 BUN/Creatinine Ratio 15.0 8-20 Calcium 9.4 mg/dL 8.1-9.9 eGFR Non- 79.0 > 60 eGFR 101.7 > 60 60 Laboratory test finding 07/01/2011 Thyroxine 5.5 g/dL 5-12 T3 Total 0.92 NG/ML 0.5-1.7 TSH 1.97 MIU/ML 0.34-5.60 Laboratory test finding 07/01/2011 Magnesium 1.8 mg/dL 1.7-2.6 Laboratory test finding 10/31/2010 Sweat Chloride 42 mmol/L 61 CBC Auto Diff 08/10/2010 White Blood Count [...] mmol/L 22-32 Anion Gap 6.0 mmol/L 2-11 62 Glucose 81 mg/dL 70-100 BUN 10 mg/dL 6-24 Creatinine 0.70 mg/dL 0.50-1.40 One Over Creatinine 1.40 BUN/Creatinine Ratio 14.3 8-20 Calcium 9.2 mg/dL 8.1-9.9 Total Protein 6.7 GM/DL 6.2-8.1 Albumin 4.1 GM/DL 3.6-5.4 Globulin 2.6 GM/DL 2-4 Albumin/Globulin Ratio 1.6 1-3 Bilirubin Total 0.7 mg/dL 0.4-1.5 63 Alkaline Phosphatase 70 U/L 30-110 Alt (SGPT) 10 U/L Low 14-54 Ast (Sgot) 23 U/L 12-42 eGFR Non- 92.7 > 60 eGFR 119.2 > 60 64 Laboratory test finding 08/10/2010 Monospot NEGATIVE Negative Latoya Moody Comprehensive 08/10/2010 Ebv Vca Igg Positive Negative Ebv Vca Igm Negative Negative Ebna Positive Negative Ebv Interpretation SEE BELOW () 65 Laboratory test finding 08/10/2010 Strep Screen NEG Neg Laboratory test finding 12/21/2008 Lipase 23 U/L 22-51 Amylase 42 U/L 30-125 Comp Metabolic Panel 12/21/2008 Sodium 137 mmol/L 135-145 Potassium 3.9 mmol/L 3.5-5.0 Chloride 106 mmol/L 101-111 Co2 (Carbon Dioxide) 27.0 mmol/L 22-32 Anion Gap 4.0 mmol/L 2-11 66 Glucose 84 mg/dL 70-100 67 BUN 7 mg/dL 6-24 Creatinine 0.90 mg/dL 0.50-1.40 One Over Creatinine 1.10 BUN/Creatinine Ratio 7.8 Low 8-20 Calcium 9.0 mg/dL 8.1-9.9 68 Total Protein 6.6 GM/DL 6.2-8.1 Albumin 4.0 GM/DL 3.6-5.4 Globulin 2.6 GM/DL 2-4 Albumin/Globulin Ratio 1.5 1-3 Bilirubin Total 0.9 mg/dL 0.4-1.5 69 Alkaline Phosphatase 60 U/L 30-110 Alt (SGPT) 8 U/L Low 14-54 Ast (Sgot) 21 U/L 12-42 eGFR Non- 74.5 > 60 eGFR 90.1 > 60 70 CBC With Electronic Diff 12/21/2008 White Blood [...] Creatinine 1.11 Anion Gap 7.0 mmol/L 2-11 71 Albumin/Globulin Ratio 1.3 1-3 Albumin 3.8 GM/DL [...] test 03/23/2007 Cyclic Citrullinated <15.6 U () 72 finding Pep Igg Comp Metabolic Panel 03/23/2007 One Over Creatinine 1.00 Anion Gap 14.0 mmol/L High 2-11 73 Albumin/Globulin Ratio 1.3 1-3 Albumin 3.6 GM/DL [...] Creatinine 1.11 Anion Gap 6.0 mmol/L 2-11 74 Albumin/Globulin Ratio 1.6 1-3 Albumin 4.1 GM/DL [...] 0.34-5.60 Free Thyroxine 0.60 NG/ML Low 0.61-1.24 75 CBC With Manual Diff 10/03/2006 White Blood [...] Redcell Distribution WDTH 13 % 10.5-15 1 [facility] Severe Sepsis and Septic Shock Management Bundle Measure requires all lactic acids initially measuring >2.0 mmol/L be repeated. 2 Because ethnic data is not always readily [...] 15-29 5 Kidney failure <15 (or dialysis) 3 Critical Result LACT:3.6 Called to DONTRELL at: 12:13:26 by:[id number] Read back by:DONTRELL [facility] Severe Sepsis and Septic Shock Management Bundle Measure requires all lactic acids initially measuring >2.0 mmol/L be repeated. 4 REFERENCE VALUE 6:00-10:30 AM Collection 0.121-1.065 mcg/dL ADDITIONAL INFORMATION This test was developed and its performance characteristics determined by [facility] in a manner consistent with CLIA requirements. This test has not been cleared or approved by the U.S. Food and Drug Administration. Test Performed by: [facility] [place] [address] [address] 5 Comment: 90 min 6 AM 8.7-22.4 PM <10 7 AM 8.7-22.4 PM <10 8 Comment: 30 min 9 AM 8.7-22.4 PM <10 10 Comment: baseline 11 AM 8.7-22.4 PM <10 12 [id number] Serologic response to B. burgdorferi infection is not detected, but cannot rule out early infection during which low or undetectable antibody levels to B. burgdorferi may be present. If clinically indicated, a new serum specimen should be submitted in 7-14 days. Test Performed by: [address] [address] 15 [id number] 16 Because ethnic data is not always readily [...] 15-29 5 Kidney failure <15 (or dialysis) 17 Acute inflammation: >10.00 18 ADDITIONAL INFORMATION This test was developed using an analyte specific reagent. Its performance characteristics were determined by [facility] in a manner consistent with CLIA requirements. This test has not been cleared or approved by the U.S. Food and Drug Administration. Test Performed by: [facility] - [address] [address] 19 Acute inflammation: >10.00 20 Because ethnic data is not always readily [...] 15-29 5 Kidney failure <15 (or dialysis) 21 Test Performed by: [address] [address] 22 Specific serologic response to B. burgdorferi infection [...] screening test (e.g., EIA). Test Performed by: [facility] - [facility] [address] [place] [address] 23 [id number] 24 REFERENCE VALUE <20.0 (Negative) Test Performed by: [facility] - [facility] [address] [place] [address] 25 [id number] 26 ANTIBODY NOT DETECTED REFERENCE RANGES: IgG <1:64 [...] analytical performance characteristics have been determined by [facility]. It has not been cleared or approved by the U.S. Food and Drug Administration. The FDA has determined that such clearance or approval is not necessary. This assay has been validated pursuant to the CLIA regulations and is used for clinical purposes. Test Performed by: [facility] [address] [place] [address] 27 Because ethnic data is not always readily [...] 15-29 5 Kidney failure <15 (or dialysis) 28 [id number] 29 SEE RESULT BELOW Name: LAURENCE PEREZ Rivera : [address]: Renetta Weiner NP Acct: [id number] Unit: [id number] AGE: 45 Location: [facility] Re08/30/15 SEX: F Status: REG REF SPEC: [id number] LAYO: 08/30/15-[address] [facility] [address]: Renetta Weiner NP REQ: [id number] RECD: 08/30/15-1826 STATUS: COMP _ SOURCE: URINE SPDESC: ORDERED: Urine Culture COMMENTS: [id number] Procedure Result Reported Site Urine Culture Final 09/01/15- 904 ML No Growth (<1,000 CFU/mL) * ML - MAIN LAB ([facility]) . END OF REPORT * ML=Testing performed at Main Lab DEPARTMENT OF PATHOLOGY, [address] [place] [address] Gigi Miranda M.D. Director [facility] # [id number] 30 FASTING 31 Desirable <150 Borderline high 150-199 High 200-499 Very High >500 32 Desirable <200 Borderline high 200-239 High >239 33 Low <40 Desirable: 40-60 High: >60 34 Desirable: <100 mg/dL Near Optimal: 100-129 mg/dL Borderline High: 130-159 mg/dL High: 160-189 mg/dL Very High: >189 mg/dL 35 KIT AND CUP 36 SEE RESULT BELOW Name: LAURENCE PEREZ Rivera : [address]: Justice Qiu III, NP Acct: [id number] Unit: [id number] AGE: 44 Location: [facility] Re10/21/14 SEX: F Status: REG REF SPEC: [id number] LAYO: 10/21/[address]: Justice Qiu III ARMATURE WINDER REQ: [id number] RECD: 10/21/14 STATUS: COMP _ SOURCE: STOOL [...] not recommended. Verbal to GENNARO WALSH by [id number] at 1242 on 10/21/14. Procedure Result Verified [...] ON NEXT PAGE * ML=Testing performed at [facility] Lab DEPARTMENT OF PATHOLOGY, [address] [place] [address] Gigi Miranda M.D. Director [facility] # [id number] Patient: LAURENCE PEREZ [id number] (Continued) Specimen: [id number] Collected: 10/21/14 Received: 10/21/14 (Continued) Procedure Result [...] is requested. Contact the Microbiology Department at [phone]. TEST LIMITATIONS: As with all diagnostic procedures, the results obtained should be used in conjunction with other clinical information available the physician, including confirmation by another method. Negative results can occur in samples CONTINUED ON NEXT PAGE * ML=Testing performed at Main Lab DEPARTMENT OF PATHOLOGY, [address] [place] [address] Gigi Miranda M.D. Director [facility] # [id number] Patient: CHRISLAURENCE NICHOLSON [id number] (Continued) Specimen: [id number] Collected: 10/21/14 Received: 10/21/14 (Continued) Procedure Result [...] not recommended. * ML - MAIN LAB ([facility]) . END OF REPORT * ML=Testing performed at Main Lab DEPARTMENT OF PATHOLOGY, [address] [place] [address] Gigi Miranda M.D. Director [facility] # [id number] 37 SEE RESULT BELOW Name: LAURENCE PEREZ : [address]: Justice Qiu III ARMATURE WINDER Acct: [id number] Unit: [id number] AGE: 44 Location: [facility] Re10/21/14 SEX: F Status: REG REF SPEC: [id number] LAYO: 10/21/[address]: Justice Qiu III ARMATURE WINDER REQ: [id number] RECD: 10/21/14 STATUS: RES _ SOURCE: STOOL [...] not recommended. Verbal to GENNARO WALSH by [id number] at 1242 on 10/21/14. Procedure Result Verified [...] performed at Main Lab DEPARTMENT OF PATHOLOGY, [address] [place] [address] Gigi Miranda M.D. Director [facility] # [id number] Patient: LAURENCE PEREZ [id number] (Continued) Specimen: [id number] Collected: 10/21/14 Received: 10/21/14 (Continued) Procedure Result [...] is requested. Contact the Microbiology Department at [phone]. TEST LIMITATIONS: As with all diagnostic procedures, [...] and are not recommended. * ML - [facility] ([facility]) . END OF REPORT * ML=Testing performed at Main Lab DEPARTMENT OF PATHOLOGY, [address] [place] [address] Gigi Miranda M.D. Director [facility] # [id number] 38 SEE RESULT BELOW Name: LAURENCE PEREZ : [address]: Justice Qiu III, NP Acct: [id number] Unit: [id number] AGE: 44 Location: [facility] Re10/21/14 SEX: F Status: REG REF SPEC: [id number] LAYO: 10/21/[address] [facility] [address]: Justice Stafford Uyen III ARMATURE WINDER REQ: [id number] RECD: 10/21/14 STATUS: RES _ SOURCE: STOOL [...] not recommended. Verbal to GENNARO WALSH by [id number] at 1242 on 10/21/14. Procedure Result Verified [...] performed at Main Lab DEPARTMENT OF PATHOLOGY, [address] [place] [address] Gigi Miranda M.D. Director [facility] # [id number] Patient: LAURENCE PEREZ [id number] (Continued) Specimen: [id number] Collected: 10/21/14 Received: 10/21/14 (Continued) Procedure Result Verified Site O P: Giardia/Cryptospor Screen Final (continued) 10/21/14 910 Giardia and cryptosporidium antigen testing performed by enzyme immunoassay. If patient is immunocompromised or has traveled to or is from a developing country, a full ova and parasite exam with microscopic (OPMIC) is recommended. All samples will be held one month in case full ova and parasite testing is requested. Contact the Microbiology Department at [phone]. TEST LIMITATIONS: As with all diagnostic procedures, [...] not recommended. * ML - MAIN LAB ([facility]) . END OF REPORT * ML=Testing performed at Main Lab DEPARTMENT OF PATHOLOGY, [address] [place] [address] Gigi Miranda M.D. Director [facility] # [id number] SEE RESULT BELOW Name: SILVIA PEREZJESUS Stafford : [address]: Justice Qiu III, NP Acct: [id number] Unit: [id number] AGE: 44 Location: [facility] Re10/21/14 SEX: F Status: REG REF SPEC: [id number] LAYO: 10/21/[address]: Justice Qiu III, NP REQ: [id number] RECD: 10/21/14 STATUS: RES _ SOURCE: STOOL [...] Screen PENDING * ML - MAIN LAB ([facility]) . END OF REPORT * ML=Testing performed at Main Lab DEPARTMENT OF PATHOLOGY, [address] [place] [address] Gigi Miranda M.D. Director [facility] # [id number] 40 Reference Range and Interpretation: TnI (ng/mL) Interpretation Less Than 0.03 ng/mL Not supportive of diagnosis of [place] 0.03 - 0.50 ng/mL Indeterminate: suggest serial studies if clinically indicated. Greater than 0.5 ng/mL Consistent with diagnosis of [place] 41 Because ethnic data is not always readily [...] 15-29 5 Kidney failure <15 (or dialysis) 42 >100 to <200 pg/mL: likely compensated congestive heart failure (CHF) 200 to 400 pg/mL: likely moderate CHF >400 pg/mL: likely moderate to severe CHF 43 Comment: s 44 Reference Range and Interpretation: TnI (ng/mL) Interpretation Less Than 0.03 ng/mL Not supportive of diagnosis of [place] 0.03 - 0.50 ng/mL Indeterminate: suggest serial studies if clinically indicated. Greater than 0.5 ng/mL Consistent with diagnosis of [place] 45 Test Performed by: [facility] - [address] [address] Research And Development Researcher: Rudi R. Cockerill, III, M.D. 46 No bands detected 47 Specific serologic response to B. burgdorferi infection [...] screening test (e.g., EIA). Test Performed by: [place] [address] Research And Development Researcher: Rudi Erickson III, M.D. 48 RUN DATE: 06/22/13 [facility] LAB LIVE PAGE 1 RUN TIME: [address] [place] [address] Specimen Inquiry Name: LAURENCE PEREZ : [address]: Wesly Esposito MD Acct: [id number] Unit: [id number] AGE: 43 Location: ENDO Re06/21/13 SEX: F Status: REG REF SPEC: [id number] LAYO: 06/21/13- [facility] DR: Wesly Esposito MD REQ: [id number] RECD: 06/21/13 STATUS: ROBERT CURRY DR: Victor [...] is received in formalin labeled Laurence Perez, Biopsy Duodenum and consists of a 0.4 x 0.2 x 0.2 cm. dale-pink, irregular, soft tissue fragment. Submitted entirely, one cassette. CONTINUED ON NEXT PAGE * ML=Testing performed at Main Lab DEPARTMENT OF PATHOLOGY, [facility] [place] [address] Gigi Miranda M.D. Director [facility] # [id number] RUN DATE: 06/22/13 [facility] LAB LIVE PAGE 2 RUN TIME: 1455 [facility] [address] [place], [place] [address] Specimen Inquiry Patient: CHRISLAURENCE Stafford [id number] (Continued) GROSS DESCRIPTION (Continued) GROSS DESCRIPTION (Continued) 2. The specimen is received in formalin labeled Laurence Perez, Gastric Biopsies and consists of a 0.4 x 0.3 x 0.1 cm. aggregate of multiple, dale-pink, irregular , soft tissue fragments. Submitted entirely, one cassette. Signed (signature on file) Gigi Miranda MD 1455 END OF REPORT * ML=Testing performed at Main Lab DEPARTMENT OF PATHOLOGY, [facility] [place], [place] [address] Gigi Miranda M.D. Director [facility] # [id number] 49 RUN DATE: 06/22/13 [facility] LAB LIVE PAGE 1 RUN TIME: 4490 [facility] [address] [place], [place] [address] Specimen Inquiry Name: LAURENCE PEREZ : [address]: Wesly Esposito MD Acct: [id number] Unit: [id number] AGE: 43 Location: ENDO Re06/21/13 SEX: F Status: REG REF SPEC: [id number] LAYO: 06/21/[address] [facility] [address]: Wesly Esposito MD REQ: [id number] RECD: 06/21/13 STATUS: COMP OTHR DR: Victor Hugo Root MD _ SOURCE: GAS ANTRUM SPDESC: ORDERED: Clotest COMMENTS: Comment: COPY TO DR. ROOT - THANKS Procedure Result Verified Site Clotest Final 06/22/13- 4024 ML Clotest Negative END OF REPORT * ML=Testing performed at Main Lab DEPARTMENT OF PATHOLOGY, [address] [place] [address] Gigi Miranda M.D. Director [facility] # [id number] RUN DATE: 06/22/13 [facility] LAB LIVE PAGE 1 RUN TIME: [address] [place] [address] Specimen Inquiry Name: LAURENCE PEREZ : [address]: Jaki Pandya MD Acct: [id number] Unit: [id number] AGE: 43 Location: [facility] Re06/19/13 SEX: F Status: DEP ER SPEC: [id number] LAYO: 06/19/13-[address] [facility] [address]: Jaki Pandya MD REQ: [id number] RECD: 06/20/13-122 STATUS: MARGA CURRY DR: [facility] Physicians Victor Hugo Root MD _ SOURCE: THROAT SPDESC: ORDERED: Throat Beta Str Procedure Result Verified Site Throat Beta Strep Culture Final 06/22/13- 0828 ML Negative For Group A Beta Streptococcus END OF REPORT * ML=Testing performed at Main Lab DEPARTMENT OF PATHOLOGY, [facility] [place] [address] Gigi Miranda M.D. Director [facility] # [id number] 51 RUN DATE: 01/08/13 [facility] LAB LIVE PAGE 1 RUN TIME: 1230 [facility] [address] [place], [place] [address] Specimen Inquiry Name: LAURENCE PEREZ : [address]: Victor Hugo Root MD Acct: [id number] Unit: [id number] AGE: 42 Location: [facility] Re01/07/13 SEX: F Status: REG REF SPEC: [id number] LAYO: 01/08/[address] [facility] [address]: Victor Hugo Root MD REQ: [id number] RECD: 01/08/13 STATUS: RES _ SOURCE: STOOL SPDESC: ORDERED: Hemoccult, Fecal Lactoferr, C. diff Amp DNA QUERIES: [employer] Number [id number] Procedure Result Verified Site Stool Specimen Description Final 01/08/13- 1204 ML Stool Color Brown Stool Form Semi-formed Stool Consistency Soft C. difficile Amplified DNA PENDING Fecal Lactoferrin (Stool WBC) PENDING Stool Occult Blood Final 01/08/13- 1230 ML Stool Occult Blood Negative END OF REPORT * ML=Testing performed at Main Lab DEPARTMENT OF PATHOLOGY, [address] [place] [address] Ggii Miranda M.D. Director [facility] Permit #[id number] 52 RUN DATE: 01/08/13 [facility] LAB LIVE PAGE 1 RUN TIME: [address] [place] [address] Specimen Inquiry Name: LAURENCE PEREZ : [address]: Victor Hugo Root MD Acct: [id number] Unit: [id number] AGE: 42 Location: [facility] Re01/07/13 SEX: F Status: REG REF SPEC: [id number] LAYO: 01/08/[address]: Victor Hugo Root MD REQ: [id number] RECD: 01/08/13 STATUS: RES _ SOURCE: STOOL SPDESC: ORDERED: Hemoccult, Fecal Lactoferr, C. diff Amp DNA QUERIES: [employer] Number [id number] Procedure Result Verified Site Stool Specimen Description [...] performed at Main Lab DEPARTMENT OF PATHOLOGY, [facility] [place] [address] Gigi Miranda M.D. Director [facility] Permit #[id number] 53 RUN DATE: 01/08/13 [facility] LAB LIVE PAGE 1 RUN TIME: 1736 [facility] [address] [place], [place] [address] Specimen Inquiry Name: LAURENCE PEREZ : [address]: Victor Hugo Root MD Acct: [id number] Unit: [id number] AGE: 42 Location: [facility] Re01/07/13 SEX: F Status: REG REF SPEC: [id number] LAYO: 01/08/[address] [facility] [address]: Victor Hugo Root MD REQ: [id number] RECD: 01/08/13 STATUS: COMP _ SOURCE: STOOL SPDESC: ORDERED: Hemoccult, Fecal Lactoferr, C. diff Amp DNA QUERIES: [facility] Number [id number] Procedure Result Verified Site Stool Specimen Description [...] performed at Main Lab DEPARTMENT OF PATHOLOGY, [facility] [place] [address] Gigi Miranda M.D. Director [facility] Permit #[id number] RUN DATE: 01/08/13 [facility] LAB LIVE PAGE 2 RUN TIME: 837 [facility] [address] [place], [place] [address] Specimen Inquiry Patient: LAURENCE PEREZ [id number] (Continued) Specimen: [id number] Collected: 01/08/13 Received: 01/08/13-1200 (Continued) Procedure Result Verified Site Fecal Lactoferrin (Stool WBC) Final (continued) 01/08/13- 1421 Fecal samples from breast fed infants should not be used with this assay. Stool Occult Blood Final 01/08/13- 1230 ML Stool Occult Blood Negative END OF REPORT * ML=Testing performed at Main Lab DEPARTMENT OF PATHOLOGY, [facility] [place] [address] Gigi Miranda M.D. Director [facility] Permit #[id number] 54 RUN DATE: 01/08/13 [facility] LAB LIVE PAGE 1 RUN TIME: 1207 [facility] [address] [place], [place] [address] Specimen Inquiry Name: LAURENCE PEREZ Rivera : [address]: Victor Hugo Root MD Acct: [id number] Unit: [id number] AGE: 42 Location: [facility] Re01/07/13 SEX: F Status: REG REF SPEC: [id number] LAYO: 01/07/13-[address]: Victor Hugo Root MD REQ: [id number] RECD: 01/07/13 STATUS: RES _ SOURCE: STOOL SPDESC: ORDERED: Stool Culture, O P: Giar/Crypt COMMENTS: NO PLAIN CONTAINER RECEIVED OF 153 ON 01/07/13 QUERIES: [employer] Number [id number] Procedure Result Verified Site Stool Culture PENDING [...] is requested. Contact the Microbiology Department at [phone]. TEST LIMITATIONS: As with all diagnostic procedures, the results obtained should be used in conjunction with other clinical information available the physician. Negative results can occur in samples containing antigen below lower limits of detection of the assay. The use of colonic washes, CONTINUED ON NEXT PAGE * ML=Testing performed at Main Lab DEPARTMENT OF PATHOLOGY, [facility] [place], [place] [address] Gigi Miranda M.D. Director [facility] Permit #[id number] RUN DATE: 01/08/13 [facility] LAB LIVE PAGE 2 RUN TIME: 1207 [facility] [address] [place], [place] [address] Specimen Inquiry Patient: LAURENCE PEREZ Rivera [id number] (Continued) Specimen: [id number] Collected: 01/07/13-999 Received: 01/07/13-134 (Continued) Procedure Result Verified Site O P: [...] performed at Main Lab DEPARTMENT OF PATHOLOGY, [facility] [place], [place] [address] Gigi Miranda M.D. Director [facility] Permit #[id number] RUN DATE: 01/09/13 [facility] LAB LIVE PAGE 1 RUN TIME: [address] [employer] [place], [place] [address] Specimen Inquiry Name: CHRISLAURENCE L : [address]: Victor Hugo Root MD Acct: [id number] Unit: [id number] AGE: 42 Location: [facility] Re01/07/13 SEX: F Status: REG REF SPEC: [id number] LAYO: 01/07/13-[address]: Victor Hugo Root MD REQ: [id number] RECD: 01/07/13 STATUS: COMP _ SOURCE: STOOL SPDESC: ORDERED: Stool Culture, O P: Giar/Crypt COMMENTS: NO PLAIN CONTAINER RECEIVED OF 153 ON 01/07/13 QUERIES: [employer] Number [id number] Procedure Result Verified Site Stool Culture Final [...] performed at Main Lab DEPARTMENT OF PATHOLOGY, [facility] [place] [address] Gigi Miranda M.D. Director [facility] Permit #[id number] RUN DATE: 01/09/13 [facility] LAB LIVE PAGE 2 RUN TIME: 1102 [facility] [address] [place], [place] [address] Specimen Inquiry Patient: CHRISLAURENCE [id number] (Continued) Specimen: [id number] Collected: 01/07/13-999 Received: 01/07/13-134 (Continued) Procedure Result Verified Site O P: [...] is requested. Contact the Microbiology Department at [phone]. TEST LIMITATIONS: As with all diagnostic procedures, [...] performed at Main Lab DEPARTMENT OF PATHOLOGY, [address] [place] [address] Gigi Miranda M.D. Director [facility] Permit #[id number] 56 -- REFERENCE VALUE -- <4.0 (Negative) 57 -- REFERENCE VALUE -- <6.0 (Negative) Test Performed by: [address] [address] Research And Development Researcher: Rudi Erickson III, M.D. 58 Because ethnic data is not always readily [...] 15-29 5 Kidney failure <15 (or dialysis) 59 Anion gap measurement may be of limited value in the presence of any alkalosis, especially in a combined acid base disorder. . 60 Because ethnic data is not always readily [...] 15-29 5 Kidney failure <15 (or dialysis) 61 REFERENCE RANGE: 0-60..........NORMAL 60-90.........BORDERLINE ABOVE 90......HIGH Please note the change in Reference Range EFFECTIVE 06 Please note: Test was performed using the [employer] SWEAT-CHEK conductivity analyzer and is meant as a screening test only. The test result in mmol/L represents the molar concentration of sodium chloride in the sample. Patients having an elevated sweat conductivity value should have a quantitative sweat chloride test performed at a cystic fibrosis center. . 62 Anion gap measurement may be of limited value in the presence of any alkalosis, especially in a combined acid base disorder. . 63 A metabolite of Naproxen, O-desmethylnaproxen, has been shown to interfere with the [place]rassik-[place] method for measuring total bilirubin. Samples from patients who have taken Naproxen have shown spurious elevation in total bilirubin levels. 64 Because ethnic data is not always readily [...] 15-29 5 Kidney failure <15 (or dialysis) 65 RESULT: Results suggest past infection In most populations, at least 90% of the adult population will have been infected with EBV sometime in the past and therefore, will be positive for anti-VCA/IgG and anti-EBNA. Antibodies to EBNA develop 6-8 weeks after primary infection and remain present for life. Presence of VCA/IgM antibodies indicates recent primary infection with EBV. Test Performed by: [facility] Dpt of Lab Med and Pathology [address] [place] [address] Research And Development Researcher: Rudi Erickson III, M.D. 66 Anion gap measurement may be of limited value in the presence of any alkalosis, especially in a combined acid base disorder. . 67 Note change in reference range as of 10/01/07. The change was based on recommendations from the [place] [employer]. 68 Please note change in reference range effective 07 . 69 A metabolite of Naproxen, O-desmethylnaproxen, has been shown to interfere with the Jendrassik-[place] method for measuring total bilirubin. Samples from patients who have taken Naproxen have shown spurious elevation in total bilirubin levels. 70 Because ethnic data is not always readily [...] 15-29 5 Kidney failure <15 (or dialysis) 71 Anion gap measurement may be of limited value in the presence of any alkalosis, especially in a combined acid base disorder. . 72 -- REFERENCE VALUE -- <20.0 (Negative) 20.0-39.9 (Weak Positive) 40.0-59.9 (Positive) >=60.0 (Strong Positive) Test Performed by: [facility] Dpt of Lab Med and Pathology [address] [place] [address] Research And Development Researcher: Rudi Erickson III, M.D. 73 Anion gap measurement may be of limited value in the presence of any alkalosis, especially in a combined acid base disorder. . 74 Anion gap measurement may be of limited value in the presence of any alkalosis, especially in a combined acid base disorder. . 75 PLEASE NOTE NEW REFERENCE RANGES. Procedures Date CPT Code Description Status 02/23/2016 13001 EKG, at Least 12 Leads w/Interpretation and Report Completed 09/20/2014 19534 EKG, at Least 12 Leads w/Interpretation and Report Completed 07/04/2011 60768 Wearable ECG Monitor/Report W/Visual Superimposition Completed Scanning 07/02/2011 26036 EKG, at Least 12 Leads w/Interpretation and Report Completed Encounters Type Date Location Provider CPT E/M Dx Office Visit 08/22/2017 10:30a [place] [address] M48.02 Z01.818 Office Visit 05/02/2017 2:15p Main Office MARCELLO Ndiaye-Berta [address] J01.90 E27.1 Office Visit 03/21/2017 11:30a [place] [address] J06.9 Office Visit 12/04/2016 3:15p Main Office Victor Hugo Root M.D. 53884 M54.2 Office Visit 11/20/2016 3:30p Main Office Victor Hugo Root M.D. 50902 M54.2 M54.30 Office Visit 11/18/2016 11:15a [place] [address] M25.549 R06.02 Z87.11 Office Visit 10/23/2016 4:00p [place] [address] M25.549 J01.90 Office Visit 10/07/2016 9:30a Main Office RYAN Durham 82956 J01.90 Office Visit 07/16/2016 3:00p Main [place] [address] R42 J18.9 Office Visit 05/22/2016 3:00p Main Office RYAN Durham 06260 M54.2 M25.50 Office Visit 03/20/2016 3:15p Main Office Victor Hugo Root M.D. 99962 F41.9 Office Visit 02/22/2016 4:45p Main Office Victor Hugo Root M.D. 03099 F41.9 Office Visit 08/30/2015 10:45a Main Office RYAN Durham 07147 N39.0 H81.10 Office Visit 11/01/2014 3:15p Main Office Victor Hugo Root M.D. 59310 Z00.00 E78.0 V06.5 Office Visit 10/14/2014 2:30p Main Office Justice Uyen [facility] 09344 564.1 Office Visit 09/20/2014 4:00p Main Office Justice Bobedy [facility] 21067 786.50 Office Visit 07/16/2014 11:30a Main Office Victor Hugo Root M.D. 53758 461.8 Office Visit 07/13/2013 2:15p Main Office Victor Hugo Root M.D. 63220 723.1 Office Visit 06/22/2013 9:30a Main Office Radames Brenner [facility] 43336 723.1 719.41 Office Visit 01/05/2013 3:45p Main Office Victor Hugo Root M.D. 16433 787.01 Office Visit 01/20/2012 11:45a Main Office Renetta Weiner [facility] 55396 466.0 Office Visit 07/22/2011 9:30a Main Office [facility] [address]33 989.5 Office Visit 07/02/2011 3:30p Main Office Victor Hugo Root M.D. 27477 785.1 785.1 Office Visit 10/25/2010 3:45p Main Office Radames Brenner [facility] 25476 786.2 372.03 Office Visit 08/10/2010 3:30p Main Office Radames Brenner [facility] 03643 461.0 Office Visit 12/28/2008 4:00p Main Office Johnna Galvan, F.N.P.C. 33691 530.81 Office Visit 12/21/2008 10:30a Main Office Johnna Galvan F.N.P.C. 75783 789.06 Office Visit 06/23/2008 11:30a Main Office Radames Brenner [facility] 76142 300.00 Office Visit 04/05/2008 2:45p Main Office Victor Hugo Root M.D. 95710 716.98 Office Visit 12/12/2007 10:15a Main Office Mel Zapata M.D. 39905 466.0 Office Visit 06/05/2007 2:30p Main Office MARCELLO Ndiaye-C 68684 493.90 625.3 424.0 Office Visit 04/15/2007 8:45a Main Office Victor Hugo Root M.D. 89658 465.9 Office Visit 03/23/2007 10:30a Main Office MARCELLO Ndiaye-C 64086 487.8 Office Visit 03/09/2007 3:15p Main Office MARCELLO Ndiaye-C 26477 465.8 Office Visit 10/03/2006 12:00p Main Office Victor Hugo Root M.D. 89475 780.79 Office Visit 11/05/2005 4:45p Main Office Victor Hugo Root M.D. 38301 723.1 Office Visit 04/01/2005 1:15p Main Office Erick Miranda M.D. 40611 V70.0 Plan of Care No Information Available
[2017-09-27 16:32] VITALS: BP 146/86
== END 2017-09-27 16:31 | disposition home or self-care (01) ==
LOC: ED 14:08
DX: R50.9 Fever, unspecified (principal); R21 Rash and other nonspecific skin eruption; M54.2 Cervicalgia; Z88.5 Allergy status to narcotic agent; Z88.0 Allergy status to penicillin; Z88.1 Allergy status to other antibiotic agents; Z91.041 Radiographic dye allergy status
CPT/HCPCS: 36415; 80053; 85025; 86140; 99283

== ENCOUNTER 2018-04-26 13:08 | Emergency (ER) | payer BC ==
--- OUTSIDE RECORDS SUMMARY | 2018-04-26 13:42 | XMS REPORT | Continuity of Care Document ---
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 3.5-10.8 [phone] Count Red Blood Count 4.18 10^6/uL N 4.0-5.4 Hemoglobin 12.9 g/dL N 12.0-16.0 Hematocrit 39 % N 35-47 Mean Corpuscular Volume 92 fL N 80-97 Mean Corpuscular Hemoglobin 31 pg N 27-31 Mean Corpuscular HGB Conc 33 g/dL N 31-36 Red Cell Distribution Width 13 % N 10.5-15 Platelet Count 224 10^3/uL N 150-450 Mean Platelet Volume 8 um3 N 7.4-10.4 Abs Neutrophils 5.1 10^3/uL N 1.5-7.7 Abs Lymphocytes 2.3 10^3/uL N 1.0-4.8 Abs Monocytes 0.4 10^3/uL N 0-0.8 Abs Eosinophils 0.1 10^3/uL N 0-0.6 Abs Basophils 0 10^3/uL N 0-0.2 Abs Nucleated RBC 0 10^3/uL N Granulocyte % 64.1 % N 38-83 Lymphocyte % 29.3 % N 25-47 Monocyte % 5.4 % N 1-9 Eosinophil % 0.8 % N 0-6 Basophil % 0.4 % N 0-2 Nucleated Red Blood Cells % 0 N Comp Metabolic Panel 05/22/2016 [facility] Sodium 135 mmol/L N 133-145 [phone] Potassium 4.1 mmol/L N 3.5-5.0 Chloride 103 mmol/L N 101-111 Co2 Carbon Dioxide 26 mmol/L N 22-32 Anion Gap 6 mmol/L N 2-11 Glucose 81 mg/dL N 70-100 Blood Urea Nitrogen 11 mg/dL N 6-24 Creatinine 0.97 mg/dL High 0.51-0.95 BUN/Creatinine Ratio 11.3 N 8-20 Calcium 9.2 mg/dL N 8.6-10.3 Total Protein 7.2 g/dL N 6.4-8.9 Albumin 4.4 g/dL N 3.2-5.2 Globulin 2.8 g/dL N 2-4 Albumin/Globulin Ratio 1.6 N 1-3 Total Bilirubin 0.40 mg/dL N 0.2-1.0 Alkaline Phosphatase 60 U/L N 34-104 Alt 6 U/L Low 7-52 Ast 18 U/L N 13-39 Egfr Non- 61.8 N >60 Egfr 79.5 N >60 29 Laboratory test 05/22/2016 [facility] Rheumatoid <15 IU/mL N <15 30 finding [phone] Factor Lyme Western 05/22/2016 [facility] Lyme Disease Negative N Negative Blot [phone] IgG Ab WB Lyme Disease IgG Bands Present p41, kDa N Lyme Disease IgM Ab WB Negative N Negative Lyme Disease IgM Bands Present p41, kDa N Lyme Disease Interpretation See Comment N 31 Laboratory test 05/22/2016 [facility] Vitamin D 37.2 ng/mL N 30-50 32 finding [phone] Total 25(Oh) Cyclic Citrullinated Pep Igg <15.6 U N 33 Erythrocyte Sed Rate 14 mm/Hr N 0-14 34 Babesia Microti Abs 05/22/2016 [facility] Babesia microti <1:64 N (Igg,Igm) [phone] IgG Babesia microti IgM <1:20 N Babesia microti Interpretation See Comment N 35 Laboratory test 02/23/2016 [facility] TSH (Thyroid 1.57 mcIU/mL N 0.34-5.60 36 finding [phone] Stim Horm) Comp Metabolic 02/23/2016 [facility] Sodium 135 mmol/ L N 133-145 Panel [phone] Potassium 4.1 mmol/L N 3.5-5.0 Chloride 103 mmol/L N 101-111 Co2 Carbon Dioxide 26 mmol/L N 22-32 Anion Gap 6 mmol/L N 2-11 Glucose 79 mg/dL N 70-100 Blood Urea Nitrogen 8 mg/dL N 6-24 Creatinine 0.86 mg/dL N 0.51-0.95 BUN/Creatinine Ratio 9.3 N 8-20 Calcium 9.3 mg/dL N 8.6-10.3 Total Protein 7.1 g/dL N 6.4-8.9 Albumin 4.3 g/dL N 3.2-5.2 Globulin 2.8 g/dL N 2-4 Albumin/Globulin Ratio 1.5 N 1-3 Total Bilirubin 0.40 mg/dL N 0.2-1.0 Alkaline Phosphatase 58 U/L N 34-104 Alt 6 U/L Low 7-52 Ast 16 U/L N 13-39 Egfr Non- 71.4 N >60 Egfr 91.8 N >60 37 CBC Auto Diff 02/23/2016 [facility] White Blood 6.2 10^3/uL N 3.5-10.8 [phone] Count Red Blood Count 4.32 10^6/uL N 4.0-5.4 Hemoglobin 13.4 g/dL N 12.0-16.0 Hematocrit 40 % N 35-47 Mean Corpuscular Volume 93 fL N 80-97 Mean Corpuscular Hemoglobin 31 pg N 27-31 Mean Corpuscular HGB Conc 33 g/dL N 31-36 Red Cell Distribution Width 13 % N 10.5-15 Platelet Count 231 10^3/uL N 150-450 Mean Platelet Volume 8 um3 N 7.4-10.4 Abs Neutrophils 3.7 10^3/uL N 1.5-7.7 Abs Lymphocytes 1.9 10^3/uL N 1.0-4.8 Abs Monocytes 0.6 10^3/uL N 0-0.8 Abs Eosinophils 0 10^3/uL N 0-0.6 Abs Basophils 0 10^3/uL N 0-0.2 Abs Nucleated RBC 0.01 10^3/uL N Granulocyte % 59.6 % N 38-83 Lymphocyte % 30.3 % N 25-47 Monocyte % 9.0 % N 1-9 Eosinophil % 0.6 % N 0-6 Basophil % 0.5 % N 0-2 Nucleated Red Blood Cells % 0.1 N Urine DIP 08/30/2015 [facility] House [facility] Leukocytes ++ Neg (607)- - Urine Nitrites NEG Neg Urobilinogen NORM Norm Total Protein, Urine NEG Neg Urine pH 6 5-6 Urine Blood 250 High Neg Specific [place] 1.005 Low 1.01-1.02 Urine Ketones NEG Neg Urine Bilirubin NEG Neg Urine Glucose NORM Norm Laboratory test 08/30/2015 [facility] Urine Culture And SEE RESULT 38 finding [phone] Sensitivities BELOW Lipid Profile 11/22/2014 [facility] Triglycerides 52 mg/dL N 39, 40 (Trig/Chol/HDL) [phone] Cholesterol 231 mg/dL N 41 HDL Cholesterol 66.2 mg/dL N 42 LDL Cholesterol 154 mg/dL N 43 Urine DIP 11/01/2014 In House Lab Specific [place] 1.015 1.01-1.02 (607)- - Urine pH 6 5-6 Leukocytes neg Neg Urine Nitrites neg Neg Total Protein, Urine neg Neg Urine Glucose norm Norm Urine Ketones neg Neg Urobilinogen norm Norm Urine Bilirubin neg Neg Urine Blood neg Neg Stool Panel 10/21/2014 [facility] Stool Culture SEE RESULT 44, 45 (CMC) [phone] BELOW Fecal Lactoferrin (Stool WBC) SEE RESULT BELOW 46 O&P: Giardia/Cryptospor Screen SEE RESULT BELOW 47 Stool Occult Blood SEE RESULT BELOW 48 Laboratory test 09/20/2014 [facility] Troponin I 0.00 N <0.03 49, 50 finding [phone] ng/mL CBC Auto Diff 09/20/2014 [facility] White Blood 6.8 N 4.8-10.8 [phone] Count 10^3/uL Red Blood Count 4.26 10^6/uL N 4.0-5.4 Hemoglobin 13.5 g/dL N 12.0-16.0 Hematocrit 40 % N 35-47 Mean Corpuscular Volume 94 fL N 80-97 Mean Corpuscular Hemoglobin 32 pg High 27-31 Mean Corpuscular HGB Conc 34 g/dL N 31-36 Red Cell Distribution Width 13 % N 10.5-15 Platelet Count 207 10^3/uL N 150-450 Mean Platelet Volume 8 um3 N 7.4-10.4 Abs Neutrophils 4.4 10^3/uL N 1.5-7.7 Abs Lymphocytes 1.9 10^3/uL N 1.0-4.8 Abs Monocytes 0.4 10^3/uL N 0-0.8 Abs Eosinophils 0.1 10^3/uL N 0-0.6 Abs Basophils 0 10^3/uL N 0-0.2 Abs Nucleated RBC 0.01 10^3/uL N Granulocyte % 64.4 % N 38-83 Lymphocyte % 28.1 % N 25-47 Monocyte % 5.9 % N 1-9 Eosinophil % 1.2 % N 0-6 Basophil % 0.4 % N 0-2 Nucleated Red Blood Cells % 0.1 N Laboratory test 09/20/2014 [facility] Lactic Acid 0.8 mmol/L N 0.5-2.2 finding [phone] B-Type Natriuretic Peptide BNP 38 pg/mL N 51 Comp Metabolic Panel 09/20/2014 [facility] Sodium 137 mmol/L N 133-145 [phone] Potassium 4.1 mmol/L N 3.5-5.0 Chloride 105 mmol/L N 101-111 Co2 Carbon Dioxide 28 mmol/L N 22-32 Anion Gap 4 mmol/L N 2-11 Glucose 83 mg/dL N 70-100 Blood Urea Nitrogen 9 mg/dL N 6-24 Creatinine 0.82 mg/dL N 0.51-0.95 BUN/Creatinine Ratio 11.0 N 8-20 Calcium 9.1 mg/dL N 8.6-10.3 Total Protein 7.3 g/dL N 6.4-8.9 Albumin 4.4 g/dL N 3.2-5.2 Globulin 2.9 g/dL N 2-4 Albumin/Globulin Ratio 1.5 N 1-3 Total Bilirubin 0.30 mg/dL N 0.2-1.0 Alkaline Phosphatase 55 U/L N 34-104 Alt 6 U/L Low 7-52 Ast 16 U/L N 13-39 Egfr Non- 75.7 N >60 Egfr 97.4 N >60 52 Laboratory test 09/20/2014 [facility] Magnesium 2.1 mg/dL N 1.9-2.7 finding [phone] Creatine Kinase 114 U/L N 10-223 Troponin I 0.00 ng/mL N <0.03 53 CKMB 09/20/2014 [facility] CKMB ng/mL 2.2 ng/mL N 0.6-6.3 [phone] Inr/Protime 09/20/2014 [facility] Inr 0.90 N 0.78- 1.07 [phone] Laboratory test 09/20/2014 [facility] Partial 29.3 seconds N 26.0-36.3 finding [phone] Thrombo Time PTT Lyme Western 07/13/2013 [facility] Lyme Disease Negative N Negative Blot [phone] IgG Ab WB Lyme Disease IgG Bands Present p41, kDa N Lyme Disease IgM Ab WB Negative N Negative Lyme Disease IgM Bands Present No bands detecte <SEE NOTE> kDa N 54 Lyme Disease Interpretation See Comment N 55 Arthritis Panel 07/13/2013 [facility] Erythrocyte Sed 15 mm/Hr High 0-14 [phone] Rate Uric Acid 3.4 mg/dL N 2.3-6.6 Shweta (Anti-Nuclear AB) Screen Negative N Negative Rheumatoid Factor <15 IU/mL N <15 56 Surgical 06/21/2013 [facility] S RUN DATE: 57 Pathology [phone] 06/22/ SEE NOTE> Clotest 06/21/2013 [facility] Clotest (SEE NOTE) 58 [phone] Throat-Beta 06/19/2013 [facility] Throat Beta Strep ( SEE NOTE) 59 Strept [phone] Culture Laboratory test 01/08/2013 [facility] Fecal Lactoferrin (SEE NOTE) 60 finding [phone] (Stool WBC) C. difficile Amplified Dna (SEE NOTE) 61 Stool For Blood 01/08/2013 [facility] Stool Occult ( SEE NOTE) 62 [phone] Blood Stool Panel 01/07/2013 [facility] O P: (SEE NOTE) 63 (CMC) [phone] Giardia/Cryptosp or Screen Stool Culture (SEE NOTE) 64 Laboratory test 01/05/2013 [facility] TSH (Thyroid 2.50 0.34-5.60 finding [phone] Stimulating Horm) miu/mL Transglutaminase 01/05/2013 [facility] Tissue <1.2 65 Igg & Iga [phone] Transglutaminase U/mL IgA Ab Tissue Transglutaminase IgG Ab 2.7 U/mL 66 CBC No Diff 01/05/2013 [facility] White Blood 5.8 10^ 3/uL 4.8-10.8 [phone] Count Red Blood Count 4.11 10^6/uL 4.0-5.4 Hemoglobin 12.7 g/dL 12.0-16.0 Hematocrit 38 % 35-47 Mean Corpuscular Volume 91 fL 80-97 Mean Corpuscular Hemoglobin 31 pg 27-31 Mean Corpuscular HGB Conc 34 g/dL 31-36 Red Cell Distribution Width 12 % 10.5-15 Platelet Count 221 10^3/uL 150-450 Mean Platelet Volume 8 um3 7.4-10.4 Comp Metabolic Panel 01/05/2013 [facility] Sodium 139 mmol/L 133-145 [phone] Potassium 4.1 mmol/L 3.5-5.0 Chloride 105 mmol/L [...] Egfr Non- 78.7 >60 Egfr 101.2 >60 67 Laboratory test 01/20/2012 [facility] House [facility] Strep Screen NEG Neg finding (607)- - CBC Auto Diff 07/01/2011 [facility] White Blood 6.2 CUMM 4.8-10.8 [phone] Count Red Cell Count 3.97 CUMM Low 4.2-5.4 [...] 0-0.6 Abs Basophils 0 0-0.2 Basic Metabolic 07/01/2011 [facility] Sodium 139 mmol /L 135-145 Panel [phone] Potassium 3.7 mmol/L 3.5-5.0 Chloride 107 mmol/L 101-111 Co2 (Carbon Dioxide) 26.0 mmol/L 22-32 Anion Gap 6.0 mmol/L 2-11 68 Glucose 98 mg/dL 70-100 BUN 12 mg/dL 6-24 Creatinine 0.8 mg/dL 0.50-1.40 One Over Creatinine 1.25 BUN/Creatinine Ratio 15.0 8-20 Calcium 9.4 mg/dL 8.1-9.9 eGFR Non- 79.0 > 60 eGFR 101.7 > 60 69 Laboratory test 07/01/2011 [facility] Thyroxine 5.5 g/dL 5-12 finding [phone] T3 Total 0.92 NG/ML 0.5-1.7 TSH 1.97 MIU/ML 0.34-5.60 Laboratory test 07/01/2011 [facility] Magnesium 1.8 mg/dL 1.7-2.6 finding [phone] Laboratory test 10/31/2010 [facility] Sweat Chloride 42 mmol/L 70 finding [phone] CBC Auto Diff 08/10/2010 [facility] White Blood 7.5 CUMM 4.8-10.8 [phone] Count Red Cell Count 3.93 CUMM Low 4.2-5.4 [...] Basophils 0 0-0.2 Comp Metabolic Panel 08/10/2010 [facility] Sodium 137 mmol/L 135-145 [phone] Potassium 3.7 mmol/L 3.5-5.0 Chloride 102 mmol/L 101-111 Co2 (Carbon Dioxide) 29.0 mmol/L 22-32 Anion Gap 6.0 mmol/L 2-11 71 Glucose 81 mg/dL 70-100 BUN 10 mg/dL 6-24 Creatinine 0.70 mg/dL 0.50-1.40 One Over Creatinine 1.40 BUN/Creatinine Ratio 14.3 8-20 Calcium 9.2 mg/dL 8.1-9.9 Total Protein 6.7 GM/DL 6.2-8.1 Albumin 4.1 GM/DL 3.6-5.4 Globulin 2.6 GM/DL 2-4 Albumin/Globulin Ratio 1.6 1-3 Bilirubin Total 0.7 mg/dL 0.4-1.5 72 Alkaline Phosphatase 70 U/L 30-110 Alt (SGPT) 10 U/L Low 14-54 Ast (Sgot) 23 U/L 12-42 eGFR Non- 92.7 > 60 eGFR 119.2 > 60 73 Laboratory test 08/10/2010 [facility] Monospot NEGATIVE Negative finding [phone] Latoya Moody 08/10/2010 [facility] Ebv Vca Igg Positive Negative Comprehensive [phone] Ebv Vca Igm Negative Negative Ebna Positive Negative Ebv Interpretation SEE BELOW () 74 Laboratory test 08/10/2010 In House Lab Strep Screen NEG Neg finding (607)- - Laboratory test 12/21/2008 [facility] Lipase 23 U/L 22-51 finding [phone] Amylase 42 U/L 30-125 Comp Metabolic Panel 12/21/2008 [facility] Sodium 137 mmol/L 135-145 [phone] Potassium 3.9 mmol/L 3.5-5.0 Chloride 106 mmol/L 101-111 Co2 (Carbon Dioxide) 27.0 mmol/L 22-32 Anion Gap 4.0 mmol/L 2-11 75 Glucose 84 mg/dL 70-100 76 BUN 7 mg/dL 6-24 Creatinine 0.90 mg/dL 0.50-1.40 One Over Creatinine 1.10 BUN/Creatinine Ratio 7.8 Low 8-20 Calcium 9.0 mg/dL 8.1-9.9 77 Total Protein 6.6 GM/DL 6.2-8.1 Albumin 4.0 GM/DL 3.6-5.4 Globulin 2.6 GM/DL 2-4 Albumin/Globulin Ratio 1.5 1-3 Bilirubin Total 0.9 mg/dL 0.4-1.5 78 Alkaline Phosphatase 60 U/L 30-110 Alt (SGPT) 8 U/L Low 14-54 Ast (Sgot) 21 U/L 12-42 eGFR Non- 74.5 > 60 eGFR 90.1 > 60 79 CBC With 12/21/2008 [facility] White Blood 5.8 CUMM 4.8-10.8 Electronic Diff [phone] Count Red Cell Count 4.21 CUMM 4.2-5.4 Hemoglobin [...] 0-0.6 Abs Basophils 0 0-0.2 Laboratory test 04/15/2007 [facility] Erythrocyte Sed 22 MM/HR High 0-15 finding [phone] Rate Monospot NEGATIVE Negative Shweta (Antinuclear 04/15/2007 [facility] Antinuclear AB NEGATIVE Negative Antibodies) [phone] Comp Metabolic 04/15/2007 [facility] One Over 1.11 Panel [phone] Creatinine Anion Gap 7.0 mmol/L 2-11 80 Albumin/Globulin Ratio 1.3 1-3 Albumin 3.8 GM/DL [...] 8-20 Creatinine 0.9 mg/dL 0.5-1.4 CBC With 04/15/2007 [facility] White Blood 6.3 CUMM 4.8-10.8 Electronic Diff [phone] Count Abs Basophils 0 0-0.2 Abs Eosinophils 0.1 [...] Distribution WDTH 13 % 10.5-15 Laboratory test 04/15/2007 [facility] House [facility] Strep Screen NEG Neg finding (607)- - Laboratory test 03/23/2007 [facility] House Lab Flu Test A&B, POS finding (607)- - Quickvue CBC With Manual 03/23/2007 [facility] White Blood 4.8 CUMM 4.8-10.8 Diff [phone] Count Absolute Neutrophil Count 4.0 Hematocrit 32 % [...] Redcell Distribution WDTH 13 % 10.5-15 Laboratory 03/23/2007 [facility] Erythrocyte Sed 13 MM/HR 0-15 test finding [phone] Rate Shweta 03/23/2007 [facility] Antinuclear AB NEGATIVE Negative (Antinuclear [phone] Antibodies) Laboratory 03/23/2007 [facility] Rheumatoid < 20.0 Less Than test finding [phone] Factor IU/mL 20 Laboratory 03/23/2007 [facility] Cyclic <15.6 U ( ) 81 test finding [phone] Citrullinated Pep Igg Comp Metabolic 03/23/2007 [facility] One Over 1.00 Panel [phone] Creatinine Anion Gap 14.0 mmol/L High 2-11 82 Albumin/Globulin Ratio 1.3 1-3 Albumin 3.6 GM/DL [...] 8-20 Creatinine 1.0 mg/dL 0.5-1.4 Laboratory test 10/03/2006 In House Lab Strep Screen NEG Neg finding (607)- - Comp Metabolic Panel 10/03/2006 [facility] One Over Creatinine 1.11 [phone] Anion Gap 6.0 mmol/L 2-11 83 Albumin/Globulin Ratio 1.6 1-3 Albumin 4.1 GM/DL [...] 8-20 Creatinine 0.9 mg/dL 0.5-1.4 Laboratory test 10/03/2006 [facility] TSH 2.14 MIU/ ML 0.34-5.60 finding [phone] Free Thyroxine 0.60 NG/ML Low 0.61-1.24 84 CBC With Manual 10/03/2006 [facility] White Blood 6.9 CUMM 4.8-10.8 Diff [phone] Count Absolute Neutrophil Count 4.8 Anisocytosis SLIGHT Hematocrit [...] Redcell Distribution WDTH 13 % 10.5-15 1 Comment: 60 min level 2 AM 8.7-22.4 PM <10 3 Comment: baseline level 4 AM 8.7-22.4 PM <10 5 Comment: baseline level 6 Comment: baseline level 7 Normally menstruating females - Follicular phase 3 - 9 - Mid-cycle peak 4 - 23 - Luteal phase 1 - 6 Postmenopausal females 16 - 114 8 Normally menstruating females - Follicular Phase 1 - 18 - Mid-Cycle Peak 24 - 105 - Luteal Phase 0.6 - 20 Postmenopausal females 15 - 62 9 [id number] 10 [facility] Severe Sepsis and Septic Shock Management Bundle Measure requires all lactic acids initially measuring >2.0 mmol/L be repeated. 11 Critical Result LACT:3.6 Called to [id number] at: 12:13:26 by:[id number] Read back by:[id number] [facility] Severe Sepsis and Septic Shock Management Bundle Measure requires all lactic acids initially measuring >2.0 mmol/L be repeated. 12 Because ethnic data is not always readily [...] 15-29 5 Kidney failure <15 (or dialysis) 13 REFERENCE VALUE 6:00-10:30 AM Collection 0.121-1.065 mcg/dL ADDITIONAL INFORMATION This test was developed and its performance characteristics determined by [facility] in a manner consistent with CLIA requirements. This test has not been cleared or approved by the U.S. Food and Drug Administration. Test Performed by: [facility] [employer] [facility] [address] [place] [address] 14 Comment: 90 min 15 AM 8.7-22.4 PM <10 16 AM 8.7-22.4 PM <10 17 Comment: 30 min 18 AM 8.7-22.4 PM <10 19 Comment: baseline 20 AM 8.7-22.4 PM <10 21 Serologic response to B. burgdorferi infection is not detected, but cannot rule out early infection during which low or undetectable antibody levels to B. burgdorferi may be present. If clinically indicated, a new serum specimen should be submitted in 7-14 days. Test Performed by: [facility] [address] [place] [address] 22 [id number] 25 Because ethnic data is not always readily [...] 15-29 5 Kidney failure <15 (or dialysis) 26 Acute inflammation: >10.00 27 ADDITIONAL INFORMATION This test was developed using an analyte specific reagent. Its performance characteristics were determined by [facility] in a manner consistent with CLIA requirements. This test has not been cleared or approved by the U.S. Food and Drug Administration. Test Performed by: [facility] [address] [place] [address] 28 Acute inflammation: >10.00 29 Because ethnic data is not always readily [...] 15-29 5 Kidney failure <15 (or dialysis) 30 Test Performed by: [address] [address] 31 Specific serologic response to B. burgdorferi infection [...] screening test (e.g., EIA). Test Performed by: [facility] - [address] [address] 32 [id number] 33 REFERENCE VALUE <20.0 (Negative) Test Performed by: [address] [address] 34 [id number] ANTIBODY NOT DETECTED REFERENCE RANGES: IgG <1:64 [...] analytical performance characteristics have been determined by [facility]. It has not been cleared or approved by the U.S. Food and Drug Administration. The FDA has determined that such clearance or approval is not necessary. This assay has been validated pursuant to the CLIA regulations and is used for clinical purposes. Test Performed by: [facility] [employer] [address] [place] [address] 36 [id number] 37 Because ethnic data is not always readily [...] 15-29 5 Kidney failure <15 (or dialysis) 38 SEE RESULT BELOW Name: LAURENCE PEREZ : [address]: Renetta Weiner NP Acct: [id number] Unit: [id number] AGE: 45 Location: [facility] Re08/30/15 SEX: F Status: REG REF SPEC: [id number] LAYO: 08/30/15-[address]: Renetta Weiner NP REQ: [id number] RECD: 08/30/15 STATUS: COMP _ SOURCE: URINE SPDES: ORDERED: Urine Culture COMMENTS: [id number] Procedure Result Reported Site Urine Culture Final 09/01/15- 904 ML No Growth (<1,000 CFU/mL) * ML - MAIN LAB ([facility]) . END OF REPORT * ML=Testing performed at Main Lab DEPARTMENT OF PATHOLOGY, [address] [place] [address] Gigi Miranda M.D. Director [facility] # [id number] 39 FASTING 40 Desirable <150 Borderline high 150-199 High 200-499 Very High >500 41 Desirable <200 Borderline high 200-239 High >239 42 Low <40 Desirable: 40-60 High: >60 43 Desirable: <100 mg/dL Near Optimal: 100-129 mg/dL Borderline High: 130-159 mg/dL High: 160-189 mg/dL Very High: >189 mg/dL 44 KIT AND CUP 45 SEE RESULT BELOW Name: LAURENCE PEREZ Rivera : [address]: Justice Qiu III, NP Acct: [id number] Unit: [id number] AGE: 44 Location: [facility] Re10/21/14 SEX: F Status: REG REF SPEC: [id number] LAYO: 10/21/[address]: Justice Qiu III [employer] REQ: [id number] RECD: 10/21/14 STATUS: COMP _ SOURCE: STOOL [...] not recommended. Verbal to GENNARO WALSH by [id number] at 1242 on 10/21/14. Procedure Result Verified [...] performed at Main Lab DEPARTMENT OF PATHOLOGY, [address] [place] [address] Gigi Miranda M.D. Director [facility] # [id number] Patient: CHRISLAURENCE L [id number] (Continued) Specimen: [id number] Collected: 10/21/14 Received: 10/21/14 (Continued) Procedure Result [...] is requested. Contact the Microbiology Department at [phone]. TEST LIMITATIONS: As with all diagnostic procedures, the results obtained should be used in conjunction with other clinical information available the physician, including confirmation by another method. Negative results can occur in samples CONTINUED ON NEXT PAGE * ML=Testing performed at Main Lab DEPARTMENT OF PATHOLOGY, [address] [place] [address] Gigi Miranda M.D. Director [facility] # [id number] Patient: CHRISLAURENCE [id number] (Continued) Specimen: [id number] Collected: 10/21/14 Received: 10/21/14 (Continued) Procedure Result Verified Site O P: Giardia/Cryptospor Screen Final (continued) 10/21/14- 1411 containing antigen below lower limits of detection [...] not recommended. * ML - MAIN LAB ([facility]) . END OF REPORT * ML=Testing performed at Main Lab DEPARTMENT OF PATHOLOGY, [address] [place] [address] Gigi Miranda M.D. Director [facility] # [id number] 46 SEE RESULT BELOW Name: CHRISLAURENCE L : [address]: Justice Qiu III, NP Acct: [id number] Unit: [id number] AGE: 44 Location: [facility] Re10/21/14 SEX: F Status: REG REF SPEC: [id number] LAYO: 10/21/[address]: Justice Qiu III, NP REQ: [id number] RECD: 10/21/14 STATUS: RES _ SOURCE: STOOL [...] not recommended. Verbal to GENNARO WALSH by [id number] at 1242 on 10/21/14. Procedure Result Verified [...] performed at Main Lab DEPARTMENT OF PATHOLOGY, [address] [place] [address] Gigi Miranda M.D. Director [facility] # [id number] Patient: CHRISLAURENCE L [id number] (Continued) Specimen: [id number] Collected: 10/21/14 Received: 10/21/14 (Continued) Procedure Result [...] is requested. Contact the Microbiology Department at [phone]. TEST LIMITATIONS: As with all diagnostic procedures, [...] not recommended. * ML - MAIN LAB ([facility]) . END OF REPORT * ML=Testing performed at Main Lab DEPARTMENT OF PATHOLOGY, [address] [place] [address] Gigi Miranda M.D. Director [facility] # [id number] 47 SEE RESULT BELOW Name: LAURENCE PEREZ : [address]: Justice Qiu III FOOD BEVERAGE SUPERVISOR Acct: [id number] Unit: [id number] AGE: 44 Location: [facility] Re10/21/14 SEX: F Status: REG REF SPEC: [id number] ALYO: 10/21/[address]: Justice Qiu III FOOD BEVERAGE SUPERVISOR REQ: [id number] RECD: 10/21/14 STATUS: RES _ SOURCE: STOOL [...] not recommended. Verbal to GENNARO WALSH by [id number] at 1242 on 10/21/14. Procedure Result Verified [...] performed at Main Lab DEPARTMENT OF PATHOLOGY, [address] [place] [address] Gigi Miranda M.D. Director [facility] # [id number] Patient: LAURENCE PEREZ [id number] (Continued) Specimen: [id number] Collected: 10/21/14 Received: 10/21/14 (Continued) Procedure Result [...] is requested. Contact the Microbiology Department at [phone]. TEST LIMITATIONS: As with all diagnostic procedures, [...] not recommended. * ML - MAIN LAB ([facility]) . END OF REPORT * ML=Testing performed at Main Lab DEPARTMENT OF PATHOLOGY, [address] [place] [address] Gigi Miranda M.D. Director [facility] # [id number] 48 SEE RESULT BELOW Name: LAURENCE PEREZ Rivera : [address]: Justice Qiu III FOOD BEVERAGE SUPERVISOR Acct: [id number] Unit: [id number] AGE: 44 Location: [facility] Re10/21/14 SEX: F Status: REG REF SPEC: [id number] LAYO: 10/21/[address]: Justice Qiu III, NP REQ: [id number] RECD: 10/21/14 STATUS: RES _ SOURCE: STOOL [...] Screen PENDING * ML - MAIN LAB ([facility]) . END OF REPORT * ML=Testing performed at Main Lab DEPARTMENT OF PATHOLOGY, [address] [place] [address] Gigi Miranda M.D. Director [facility] # [id number] 49 Comment: s 50 Reference Range and Interpretation: TnI (ng/mL) Interpretation Less Than 0.03 ng/mL Not supportive of diagnosis of MD 0.03 - 0.50 ng/mL Indeterminate: suggest serial studies if clinically indicated. Greater than 0.5 ng/mL Consistent with diagnosis of MD 51 >100 to <200 pg/mL: likely compensated congestive heart failure (CHF) 200 to 400 pg/mL: likely moderate CHF >400 pg/mL: likely moderate to severe CHF 52 Because ethnic data is not always readily [...] 15-29 5 Kidney failure <15 (or dialysis) 53 Reference Range and Interpretation: TnI (ng/mL) Interpretation Less Than 0.03 ng/mL Not supportive of diagnosis of MD 0.03 - 0.50 ng/mL Indeterminate: suggest serial studies if clinically indicated. Greater than 0.5 ng/mL Consistent with diagnosis of MD 54 No bands detected 55 Specific serologic response to B. burgdorferi infection [...] screening test (e.g., EIA). Test Performed by: [address] [address] Assembler Wire Mesh Gate: Rudi Erickson III, M.D. 56 Test Performed by: [address] [address] Assembler Wire Mesh Gate: Rudi Erickson III, M.D. 57 RUN DATE: 06/22/13 [facility] LAB LIVE PAGE 1 RUN TIME: [address] [place] [address] Specimen Inquiry Name: LAURENCE PEREZ : [address]: Wesly Esposito MD Acct: [id number] Unit: [id number] AGE: 43 Location: ENDO Re06/21/13 SEX: F Status: REG REF SPEC: [id number] LAYO: 06/21/13- SUBM DR: Wesly Esposito MD REQ: [id number] RECD: 06/21/13 STATUS: ROBERT CURRY DR: Victor [...] performed at Main Lab DEPARTMENT OF PATHOLOGY, [address] [place] [address] Gigi Miranda M.D. Director [facility] # [id number] RUN DATE: 06/22/13 [facility] LAB LIVE PAGE 2 RUN TIME: [address] [place], [place] [address] Specimen Inquiry Patient: LAURENCE PEREZ [id number] (Continued) GROSS DESCRIPTION (Continued) GROSS DESCRIPTION (Continued) 2. The specimen is received in formalin labeled Laurence Perez, Gastric Biopsies and consists of a 0.4 x 0.3 x 0.1 cm. aggregate of multiple, dale-pink, irregular , soft tissue fragments. Submitted entirely, one cassette. Signed (signature on file) Gigi Miranda MD 1455 END OF REPORT * ML=Testing performed at Main Lab DEPARTMENT OF PATHOLOGY, [facility] [address] [place], [place] [address] Gigi Miranda M.D. Director [facility] # [id number] 58 RUN DATE: 06/22/13 [facility] LAB LIVE PAGE 1 RUN TIME: [address] [place] [address] Specimen Inquiry Name: LAURENCE PEREZ : [address]: Wesly Esposito MD Acct: [id number] Unit: [id number] AGE: 43 Location: ENDO Re06/21/13 SEX: F Status: REG REF SPEC: [id number] LAYO: 06/21/[address]: Wesly Esposito MD REQ: [id number] RECD: 06/21/13 STATUS: MARGA CURRY DR: Victor Hugo Root MD _ SOURCE: GAS ANTRUM SPDESC: ORDERED: Clotest COMMENTS: Comment: COPY TO DR. ROOT - THANKS Procedure Result Verified Site Clotest Final 06/22/13- 0756 ML Clotest Negative END OF REPORT * ML=Testing performed at Main Lab DEPARTMENT OF PATHOLOGY, [facility] [address] [place], [place] [address] Gigi Miranda M.D. Director [facility] # [id number] 59 RUN DATE: 06/22/13 [facility] LAB LIVE PAGE 1 RUN TIME: 827 [facility] [place], [place] [address] Specimen Inquiry Name: LAURENCE PEREZ : [address]: Jaki Pandya MD Acct: [id number] Unit: [id number] AGE: 43 Location: [facility] Re06/19/13 SEX: F Status: DEP ER SPEC: [id number] LAYO: 06/19/13-[address] [facility] [address]: Jaki Pandya MD REQ: [id number] RECD: 06/20/13-1220 STATUS: MARGA CURRY DR: [facility] Victor Hugo Root MD _ SOURCE: THROAT SPDESC: ORDERED: Throat Beta Str Procedure Result Verified Site Throat Beta Strep Culture Final 06/22/13827 ML Negative For Group A Beta Streptococcus END OF REPORT * ML=Testing performed at Main Lab DEPARTMENT OF PATHOLOGY, [facility] [address] [place], [place] [address] Gigi Miranda M.D. Director [facility] # [id number] RUN DATE: 01/08/13 [facility] LAB LIVE PAGE 1 RUN TIME: 1421 [facility] [place], [place] [address] Specimen Inquiry Name: LAURENCE PEREZ : [address]: Victor Hugo Root MD Acct: [id number] Unit: [id number] AGE: 42 Location: [facility] Re01/07/13 SEX: F Status: REG REF SPEC: [id number] LAYO: 01/08/[address] [facility] [address]: Victor Hugo Root MD REQ: [id number] RECD: 01/08/13 STATUS: RES _ SOURCE: STOOL SPDESC: ORDERED: Hemoccult, Fecal Lactoferr, C. diff Amp DNA QUERIES: Medent Number [id number] Procedure Result Verified Site Stool Specimen Description [...] performed at Main Lab DEPARTMENT OF PATHOLOGY, [facility] [address] [place], [place] [address] Gigi Miranda M.D. Director [facility] Permit #[id number] RUN DATE: 01/08/13 [facility] LAB LIVE PAGE 1 RUN TIME: 1526 [facility] [place], [place] [address] Specimen Inquiry Name: LAURENCE PEREZ : [address]: Victor Hugo Root MD Acct: [id number] Unit: [id number] AGE: 42 Location: [facility] Re01/07/13 SEX: F Status: REG REF SPEC: [id number] LAYO: 01/08/[address] [facility] [address]: Victor Hugo Root MD REQ: [id number] RECD: 01/08/13 STATUS: COMP _ SOURCE: STOOL SPDESC: ORDERED: Hemoccult, Fecal Lactoferr, C. diff Amp DNA QUERIES: Medent Number [id number] Procedure Result Verified Site Stool Specimen Description [...] performed at Main Lab DEPARTMENT OF PATHOLOGY, [facility] [address] [place], [place] [address] Gigi Miranda M.D. Director [facility] Permit #[id number] RUN DATE: 01/08/13 [facility] LAB LIVE PAGE 2 RUN TIME: 356 [facility] [place], [place] [address] Specimen Inquiry Patient: LAURENCE PEREZ [id number] (Continued) Specimen: [id number] Collected: 01/08/13 Received: 01/08/13-1200 (Continued) Procedure Result Verified Site Fecal Lactoferrin (Stool WBC) Final (continued) 01/08/13- 1421 Fecal samples from breast fed infants should not be used with this assay. Stool Occult Blood Final 01/08/13- 1230 ML Stool Occult Blood Negative END OF REPORT * ML=Testing performed at Main Lab DEPARTMENT OF PATHOLOGY, [facility] [address] [place], [place] [address] Gigi Miranda M.D. Director [facility] Permit #[id number] 62 RUN DATE: 01/08/13 [facility] LAB LIVE PAGE 1 RUN TIME: 1230 [facility] [place], [place] [address] Specimen Inquiry Name: LAURENCE PEREZ Rivera : [address]: Victor Hugo Root MD Acct: [id number] Unit: [id number] AGE: 42 Location: [facility] Re01/07/13 SEX: F Status: REG REF SPEC: [id number] LAYO: 01/08/[address] [facility] [address]: Victor Hugo Root MD REQ: [id number] RECD: 01/08/13 STATUS: RES _ SOURCE: STOOL SPDESC: ORDERED: Hemoccult, Fecal Lactoferr, C. diff Amp DNA QUERIES: Medent Number [id number] Procedure Result Verified Site Stool Specimen Description Final 01/08/13- 1204 ML Stool Color Brown Stool Form Semi-formed Stool Consistency Soft C. difficile Amplified DNA PENDING Fecal Lactoferrin (Stool WBC) PENDING Stool Occult Blood Final 01/08/13- 1230 ML Stool Occult Blood Negative END OF REPORT * ML=Testing performed at Main Lab DEPARTMENT OF PATHOLOGY, [address] [place] [address] Gigi Miranda M.D. Director [facility] Permit #[id number] 63 RUN DATE: 01/08/13 [facility] LAB LIVE PAGE 1 RUN TIME: 1207 [address] [place], [place] [address] Specimen Inquiry Name: LAURENCE PEREZ : [address]: Victor Hugo Root MD Acct: [id number] Unit: [id number] AGE: 42 Location: [facility] Re01/07/13 SEX: F Status: REG REF SPEC: [id number] LAYO: 01/07/13-[address] [facility] [address]: Victor Hugo Root MD REQ: [id number] RECD: 01/07/13 STATUS: RES _ SOURCE: STOOL SPDESC: ORDERED: Stool Culture, O P: Giar/Crypt COMMENTS: NO PLAIN CONTAINER RECEIVED OF 1530 ON 01/07/13 QUERIES: Medent Number [id number] Procedure Result Verified Site Stool Culture PENDING [...] is requested. Contact the Microbiology Department at [phone]. TEST LIMITATIONS: As with all diagnostic procedures, the results obtained should be used in conjunction with other clinical information available the physician. Negative results can occur in samples containing antigen below lower limits of detection of the assay. The use of colonic washes, CONTINUED ON NEXT PAGE * ML=Testing performed at Main Lab DEPARTMENT OF PATHOLOGY, [facility] [address] [place], [place] [address] Gigi Miranda M.D. Director [facility] Permit #[id number] RUN DATE: 01/08/13 [facility] LAB LIVE PAGE 2 RUN TIME: 1207 [facility] [place], [place] [address] Specimen Inquiry Patient: LAURENCE PEREZ [id number] (Continued) Specimen: [id number] Collected: 01/07/13 Received: 01/07/13 (Continued) Procedure Result Verified Site [...] performed at Main Lab DEPARTMENT OF PATHOLOGY, [address] [place], [place] [address] Gigi Miranda M.D. Director [facility] Permit #[id number] RUN DATE: 01/09/13 [facility] LAB LIVE PAGE 1 RUN TIME: 110[address] [place], [place] [address] Specimen Inquiry Name: LAURENCE PEREZ : [address]: Victor Hugo Root MD Acct: [id number] Unit: [id number] AGE: 42 Location: [facility] Re01/07/13 SEX: F Status: REG REF SPEC: [id number] LAYO: 01/07/13-[address] [facility] [address]: Victor Hugo Root MD REQ: [id number] RECD: 01/07/13 STATUS: COMP _ SOURCE: STOOL SPDESC: ORDERED: Stool Culture, O P: Giar/Crypt COMMENTS: NO PLAIN CONTAINER RECEIVED OF 1530 ON 01/07/13 QUERIES: Medent Number [id number] Procedure Result Verified Site Stool Culture Final [...] performed at Main Lab DEPARTMENT OF PATHOLOGY, [facility] [address] [place], [place] [address] Gigi Miranda M.D. Director [facility] Permit #[id number] RUN DATE: 01/09/13 [facility] LAB LIVE PAGE 2 RUN TIME: 1102 [facility] [place], [place] [address] Specimen Inquiry Patient: LAURENCE PEREZ [id number] (Continued) Specimen: [id number] Collected: 01/07/13-999 Received: 01/07/13-1348 (Continued) Procedure Result [...] is requested. Contact the Microbiology Department at [phone]. TEST LIMITATIONS: As with all diagnostic procedures, [...] performed at Main Lab DEPARTMENT OF PATHOLOGY, [address] [place] [address] Gigi Miranda M.D. Director [facility] Permit #[id number] 65 -- REFERENCE VALUE -- <4.0 (Negative) 66 -- REFERENCE VALUE -- <6.0 (Negative) Test Performed by: [address] [address] Assembler Wire Mesh Gate: Rudi Erickson III, M.D. 67 Because ethnic data is not always [...] a combined acid base disorder. . 69 Because ethnic data is not always readily [...] 15-29 5 Kidney failure <15 (or dialysis) 70 REFERENCE RANGE: 0-60..........NORMAL 60-90.........BORDERLINE ABOVE 90......HIGH Please note the change in Reference Range EFFECTIVE 06 Please note: Test was performed using the [employer] SWEAT-CHEK conductivity analyzer and is meant as a screening test only. The test result in mmol/L represents the molar concentration of sodium chloride in the sample. Patients having an elevated sweat conductivity value should have a quantitative sweat chloride test performed at a cystic fibrosis center. . 71 Anion gap measurement may be of limited value in the presence of any alkalosis, especially in a combined acid base disorder. . 72 A metabolite of Naproxen, O-desmethylnaproxen, has been shown to interfere with the Jendrassik-Janice method for measuring total bilirubin. Samples from patients who have taken Naproxen have shown spurious elevation in total bilirubin levels. 73 Because ethnic data is not always readily [...] 15-29 5 Kidney failure <15 (or dialysis) 74 RESULT: Results suggest past infection In most populations, at least 90% of the adult population will have been infected with EBV sometime in the past and therefore, will be positive for anti-VCA/IgG and anti-EBNA. Antibodies to EBNA develop 6-8 weeks after primary infection and remain present for life. Presence of VCA/IgM antibodies indicates recent primary infection with EBV. Test Performed by: [facility] Dpt of Lab Med and Pathology [address] [place] [address] Assembler Wire Mesh Gate: Rudi Erickson III, M.D. 75 Anion gap measurement may be of limited value in the presence of any alkalosis, especially in a combined acid base disorder. . 76 Note change in reference range as of 10/01/07. The change was based on recommendations from the [place] [employer]. 77 Please note change in reference range effective 07 . 78 A metabolite of Naproxen, O-desmethylnaproxen, has been shown to interfere with the Jendrassik-Janice method for measuring total bilirubin. Samples from patients who have taken Naproxen have shown spurious elevation in total bilirubin levels. 79 Because ethnic data is not always readily [...] 15-29 5 Kidney failure <15 (or dialysis) 80 Anion gap measurement may be of limited value in the presence of any alkalosis, especially in a combined acid base disorder. . 81 -- REFERENCE VALUE -- <20.0 (Negative) 20.0-39.9 (Weak Positive) 40.0-59.9 (Positive) >=60.0 (Strong Positive) Test Performed by: [facility] Dpt of Lab Med and Pathology [address] [place] [address] Assembler Wire Mesh Gate: Rudi Erickson III, M.D. 82 Anion gap measurement may be of limited value in the presence of any alkalosis, especially in a combined acid base disorder. . 83 Anion gap measurement may be of limited value in the presence of any alkalosis, especially in a combined acid base disorder. . 84 PLEASE NOTE NEW REFERENCE RANGES. Procedures Date Code Description Status 02/23/2016 53301 EKG, at Least 12 Leads w/Interpretation and Report Completed 09/20/2014 32839 EKG, at Least 12 Leads w/Interpretation and Report Completed 07/04/2011 54813 Wearable ECG Monitor/Report W/Visual Superimposition Completed Scanning 07/02/2011 18255 EKG, at Least 12 Leads w/Interpretation and Report Completed Encounters Type Date Location Provider Dx Diagnosis Office Visit 03/04/2018 Main Office Faustino Milton, Z80.41 Family history of 4:30p malignant neoplasm of ovary N95.1 Menopausal and female climacteric states Office Visit 02/20/2018 3:15p Main Office Faustino Milton MD R53.83 Other fatigue G47.01 Insomnia due to medical condition Office Visit 01/15/2018 4:30p Main Office Victor Hugo Root M.D. 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 M54.2 Cervicalgia Office Visit 11/20/2016 3:30p Main Office Victor Hugo Root M.D. M54.2 Cervicalgia M54.30 Sciatica, unspecified side Office Visit 11/18/2016 11:15a Main Office Faustino Milton, M25.549 Pain in joints of MD unspecified hand R06.02 Shortness of breath Z87.11 Personal history of peptic ulcer disease Office Visit 10/23/2016 4:00p Main Office Faustino Milton M25.549 Pain in joints of unspecified hand J01.90 Acute sinusitis, unspecified Office Visit 10/07/2016 9:30a Main Office David Durham01.90 Acute sinusitis, RISK MANAGER-C unspecified Office Visit 07/16/2016 3:00p Main Office Justice Qiu R42 Dizziness and III, RISK MANAGER-C giddiness J18.9 Pneumonia, unspecified organism Office Visit 05/22/2016 3:00p Main Office Renetta Weiner RISK MANAGER-C M54.2 Cervicalgia M25.50 Pain in unspecified joint Office Visit 03/20/2016 3:15p Main Office Victor Hugo Root M.D. F41.9 Anxiety disorder, unspecified Office Visit 02/22/2016 4:45p Main Office Victor Hugo Root M.D. F41.9 Anxiety disorder, unspecified Office Visit 08/30/2015 10:45a Main Office Renetta Weiner, N39.0 Urinary tract RISK MANAGER-C infection, site not specified H81.10 Benign paroxysmal vertigo, unspecified ear Office Visit 11/01/2014 3:15p Main Office Victor Hugo Root M.D. Z00.00 Encntr for general adult medical exam w/o abnormal findings E78.0 Pure hypercholesterolemia V06.5 Tetanus Diphtheria (DT) Office Visit 10/14/2014 2:30p Main Office Justice Qiu 564.1 Irritable Bowel III, RISK MANAGER-C Syndrome Office Visit 09/20/2014 4:00p Main Office Justice Qiu 786.50 Pain Chest Unspec III, RISK MANAGER-C Office Visit 07/16/2014 11:30a Main Office Victor Hugo Root M.D. 461.8 Sinusitis Acute Other Office Visit 07/13/2013 2:15p Main Office Victor Hugo Root M.D. 723.1 Cervicalgia Office Visit 06/22/2013 9:30a Main Office Radames Dave 723.1 Cervicalgia Storm, RISK MANAGER-C 719.41 Pain Joint Shoulder Region Office Visit 01/05/2013 3:45p Main Office Victor Hugo Root, 787.01 Nausea W/ Vomiting M.D. Office Visit 01/20/2012 11:45a Main Office Renetta Weiner, 466.0 Bronchitis Acute RISK MANAGER-C Office Visit 07/22/2011 9:30a Main Office Renetta Weiner, 989.5 Toxic Effect Of RISK MANAGER-C Venom Office Visit 07/02/2011 3:30p Main Office Victor Hugo Root 785.1 Palpitations Antonia 785.1 Palpitations Office Visit 10/25/2010 3:45p Main Office Radames Brenner, RISK MANAGER-C 786.2 Cough 372.03 Conjunctivitis Mucopurulent Other Office Visit 08/10/2010 3:30p Main Office Radames Dave 461.0 Sinusitis Acute Storm, RISK MANAGER-C Maxillary Office Visit 12/28/2008 4:00p Main Office Johnna Arizmendi 530.81 Esophageal Reflux Cole, F.N.P.C. Office Visit 12/21/2008 10:30a Main Office Johnna Arizmendi 789.06 Pain Abdominal Cole, Epigastric F.N.P.C. Office Visit 06/23/2008 11:30a Main Office Radames Dave 300.00 Anxiety State Storm, RISK MANAGER-C Unspec Office Visit 04/05/2008 2:45p Main Office Victor Hugo Root M.D. 716.98 Arthropathy Unspec Other Spec Sites Office Visit 12/12/2007 10:15a Main Office Mel Flores 466.0 Bronchitis Acute Antonia Zapata Office Visit 06/05/2007 2:30p Main Office Radames Dave 493.90 Asthma Unspec W/O Storm, RISK MANAGER-C Status Asthmaticus 625.3 Dysmenorrhea 424.0 Mitral Valve Disorder Office Visit 04/15/2007 8:45a Main Office Victor Hugo Root, 465.9 URI Upper M.D. Respiratory Infections Acute Unspec Sites Office Visit 03/23/2007 10:30a Main Office Radames Dave 487.8 Influenza W/ Other Storm, RISK MANAGER-C Manifestations Office Visit 03/09/2007 3:15p Main Office Radames Dave 465.8 Upper Respiratory Storm, RISK MANAGER-C Infections Acute Other Multiple Sites Office Visit 10/03/2006 12:00p Main Office Victor Hugo Root, 780.79 Malaise And Fatigue M.D. Other Office Visit 11/05/2005 4:45p Main Office Victor Hugo Root, 723.1 Cervicalgia M.D. Office Visit 04/01/2005 1:15p Main Office Erick Hernandez V70.0 Examination General Ruben M.D. Medical Routine AT [facility] Care Facility Plan of Treatment 04/07/2018 - Carla Lama M.D.J01.90 Acute sinusitis, unspecifiedNew Medication:Cefuroxime Axetil 500 mg - one by mouth twice a day x 10 days for sinus infectionRecommendations:-- YOU HAVE SIGNS OF A SINUS INFECTION AND ALSO SIGNS OF FLUID BEHIND YOUR EARS ON BOTH SIDES, WORSEON THE LEFT -- I ALSO THINK YOU ARE GETTING VERTIGO FROM INFLAMMATION AT YOUR INNER EAR -- TAKE THECEFUROXIME ANTIBIOTIC TWICE PER DAY FOR 10 DAYS -- PUSH FLUIDS -- USE THE STEROID NOSE SPRAY QNASL 2SPRAYS EACH NOSTRIL ONCE PER DAY -- STOP THE DAYQUIL/ NYQUIL -- TAKE PROBIOTIC DAILY FOR 1 MONTH ATLEAST -- STOP THE LORATADINE/ CLARITIN AND TAKE ZYRTEC/ CETIRIZINE 10 MG PER DAY AT NIGHT- CAN HELPWITH ALLERGIES AND ALSO WITH VERTIGO -- NOTIFY IF FEVER AFTER 2-3 DAYS OR WORSENING OR NOT IMPROVING IN 3-4 DAYS -- CONSIDER TRYING MONTELUKAST/ SINGULAIR FOR ASTHMA/ ALLERGY NOSE SYMPTOMS IN THE FUTURE, ALSO CAN CONSIDER AZELASTINE ANTIHISTAMINE NOSE SPRAY IN THE FUTURE
[2018-04-26 13:46] VITALS: BP 131/95
--- NOTE | 2018-04-26 14:16 | UC ---
Throat Pain/Nasal Parminedr HPI - HPI Summary HPI Summary: 48 y/o male presents to the urgent care c/o c/o sinus congestion/pressure, headache, bilateral ear pain for 10 days. Cough for 2 months. - History of Current Complaint Chief Complaint: UCRespiratory Stated Complaint: SINUS ISSUE Time Seen by Provider: 04/26/18 14:09 Hx Obtained From: Patient Hx Last Menstrual Period: 1 1/2 WEEKS AGO Onset/Duration: Gradual Onset, Lasting Days - 10 days, Worse Since - yesterday Pain Intensity: 3 - Allergies/Home Medications Allergies/Adverse Reactions: Allergies Allergy/AdvReac Type Severity Reaction Status Date / Time amoxicillin [From Augmentin] Allergy Diarrhea Verified 04/26/18 13:47 clavulanic acid Allergy Diarrhea Verified 04/26/18 13:47 [From Augmentin] Iodinated Contrast- Oral and Allergy Hives Verified 04/26/18 13:47 IV Dye morphine Allergy Hives Verified 04/26/18 13:47 Home Medications: Home Medications Estradiol PATCH 0.05MG/DAY* [Climara PATCH 0.05 MG/DAY*] 1 dose TOPICAL WEEKLY 04/26/18 [History Confirmed 04/26/18] PMH/Surg Hx/FS Hx/Imm Hx - Surgical History Surgical History: Yes Surgery Procedure, Year, and Place: BREAST IMPLANTS. C SECTION. HYSTERECTOMY. Neck Surgery - Social History Alcohol Use: Occasionally Alcohol Amount: 3-4 drinks/week Substance Use Type: None Substance Use Comment - Amount & Last Used: CBD oil Smoking Status (MU): Never Smoked Tobacco Have You Smoked in the Last Year: No Physical Exam - Summary Physical Exam Summary: Vitals: reviewed General: Well developed, well-nourished female patient with NAD. Head and face: Normocephalic and atraumatic, Positive tenderness over the frontal and maxillary sinuses.. Eyes: PERRLA, EOMI x 2. Normal conjunctiva. No eye discharge. ENT: Ears and TM with normal limits. Nose: edematous and erythematous nasal mucosa with with yellowish discharge and erythematous mucosa. Pharynx with erythema, no exudate. Neck: Supple, no JVD, no carotid bruits and no lymphadenopathy. Lungs: clear, no rales, no rhonchi, no wheezes. CVS: RRR, S1 and S2 present no murmurs or gallops appreciated. Abdomen: soft nontender with positive bowel sounds. Extremities: no edema noted. Neuro: WNL. Skin: warm and dry Triage Information Reviewed: Yes Vital Signs: Initial Vital Signs Temp 97.3 F 04/26/18 13:42 Pulse 72 04/26/18 13:42 Resp 18 04/26/18 13:42 BP 131/95 04/26/18 13:42 Pulse Ox 99 04/26/18 13:42 Throat Pain/Nasal Course/Dx - Differential Dx/Diagnosis Differential Diagnosis/HQI/PQRI: Influenza, Laryngitis, Pharyngitis, Sinusitis, Tonsillitis, URI Provider Diagnosis: Acute bacterial sinusitis, Elevated BP without diagnosis of hypertension Discharge - Sign-Out/Discharge Documenting (check all that apply): Patient Departure - D/C home All imaging exams completed and their final reports reviewed: No Studies - Discharge Plan Condition: Stable Disposition: HOME Prescriptions: Clindamycin Cap(NF) [Clindamycin Cap 300 mg Cap(NF)] 300 mg PO TID #30 cap Patient Education Materials: Sinusitis (ED), Low-Sodium Diet (ED) Referrals: Victor Hugo Root MD [Primary Care Provider] - 3 Days Erick Chiu MD [Medical Doctor] - 2 Days Additional Instructions: 1- Please increase fluid intake and rest. take full course of antibiotic to avoid resistance. Please take Culturelle to protect your GI system 2- Continue using Flonase Nasl spray as directed to help drain fluid. Also buy saline drops to clear sinuses 3-Please f/u w/ your ENT Dr Chiu in 3 days if not improvement of symptoms and further management of your chronic sinusitis. 4-Your BP is elevated today. please decrease salt in your diet, monitor BP and if it continues to be elevated please f/u with your PCP for further management. - Billing Disposition and Condition Condition: STABLE Disposition: Home
== END 2018-04-26 14:53 | disposition home or self-care (01) ==
LOC: UCEAST 13:08
DX: J01.80 Other acute sinusitis (principal); R03.0 Elevated blood-pressure reading, without diagnosis of hypertension; Z88.0 Allergy status to penicillin; Z88.1 Allergy status to other antibiotic agents; Z88.5 Allergy status to narcotic agent; Z91.041 Radiographic dye allergy status
CPT/HCPCS: 99212; G0463

== ENCOUNTER 2018-04-27 17:40 | Emergency (ER) | payer BC ==
--- OUTSIDE RECORDS SUMMARY | 2018-04-27 17:57 | XMS REPORT | Continuity of Care Document ---
:1970 External Reference #:[id number] Author Name Odalis Garcia M.D., R.D. Address [address] [place] [address] Care Team Providers Name Role Phone Victor Hugo Root M.D. Care Team Information Corporate Officer Unavailable Payers Date Identification Numbers Payment Provider Subscriber Effective: 2010 Policy Number: [id number] [employer] Balta Chris Expires: 2010 Group Name: [employer] [place] [address] PayID: [id number] BRENDAN Ibarra [id number] Effective: 2010 Policy Number: [id number] [employer] Balta Elkinsid Group Name: [employer] [address] PayID: [id number] BRENDAN Ibarra [phone] Advance Directives Description No Information Available Problems Description No Active Problems Family History Date Family Member(s) Observation Comments General CT Father Hypertension Father Hypercholesterolemia Father CAD no CT. 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 Currently at [employer]. Work Status Currently Working Hand Dominance Right-handed [...] Form Strength Qnty SIG Indications Ordering Provider Estradiol 03/04 Active Patches 0.05mg/24 8units apply 1 N95.1 Faustino Biweek HR patch to [place] skin 2 , MD times per week for menopausa l symptoms Amitriptyline 02/20 Active Tablets 10mg 30tabs 1 tab by G47.01 Faustino HCL mouth [place] every , MD night Vitamin B-12 05/02 Active Tablets 500mcg 30tabs 1 by Chrisntcarlos Natural mouth Tenzin Brenner, every day INTERNAL GRINDER TENDER[employer] Vitamin C Plus 05/02 Active Chewtabs 500mg [place] Valerie. Jordin INTERNAL GRINDER TENDER-C Qnasl 05/02 Active Aerosol 80mcg/Act 8.700gm 2 sprays J01.90 wwest each Tenzin Brenner, nostril INTERNAL GRINDER TENDER-C daily Omeprazole 11/[address] 20mg [...] 10mg 30tabs 1 po qd Unknown /0000 [place] 3 Active Capsules Unknown /0000 Curcumin 95 Active Capsules 500mg daily Unknown Turmeric Active Capsules 1 by Unknown / mouth every day Vitamin D3 Active Capsules 2000 Iu Unknown Per Day- 1 by mouth every day Iron Slow Active Tablets ER 143(45Fe) 1 by Unknown Release /0000 mg mouth every day Cefuroxime 04/07 Hx Tablets 500mg 20tabs one by J01.90 Carla Axetil mouth P. - twice a Blegen, 04/20 day x 10 M.D. days for sinus infection Cefuroxime 01/15 Hx Tablets 500mg 20tabs one by J01.90 Victor Hugo Axetil mouth Root, - twice a M.D. 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 - twice 01/15 daily x days for sinusitis Vitamin D High 05/02 Hx Capsules 1000Unit 90caps daily Radames Tenzin Brenner, - INTERNAL GRINDER TENDER-C 08/22 Clarithromycin 05/02 Hx Tablets 500mg 20tabs 1 by J01.90 Safia mouth Tenzin Brenner, - twice a [employer]NAL [employer]ER T[employer]ER[employer] 05/12 day for sinusitis Prednisone 11/18 Hx [...] Renetta Axetil mouth Manav, - twice a INTER[employer] GRINDER TENDER[employer]C 11/18 day for 10 days Meclizine HCL 07/16 Hx Tablets 25mg 30tabs one R42 Justice tablet by Uyen - mouth up III, 08/22 to three INTERNAL GRINDER TENDER[employer]C times daily for vertigo Doxycycline 07/16 Hx Tablets 100mg 20tabs 1 tab by J18.9 Justice Hyclate /2016 mouth [place] - twice a III, 10/07 day for INTERNAL GRINDER TENDER-C 10 days for infection Propranolol HCL 03/20 Hx Tablets 10mg 30tabs 1-2 by F41.9 mouth Roto, - three M.D. 10/07 times day as needed for anxiety Escitalopram 02/21 Hx Tablets 10mg 30tabs 1/2 by F41.9 Victor Hugo Oxalate mouth Root, - every day M.D. 03/20 x 8 days then 1 po qd Fluticasone 11/28 Hx Suspension 50mcg/Act 48units 1-2 Victor Hugo Propionate Sprays Root, - Intranasa M.D. 05/02 l Every Day Flonase Allergy 09/10 Hx Suspension 50mcg/Act 3units 1-2 Victor Hugo Relief sprays Root, - intranasa M.D. 11/28 l day Cipro 08/29 Hx Tablets 500mg 10tabs one twice N39.0 a day x 5 Manav, - days INTERNAL GRINDER TENDER-C 02/21 Doxycycline 07/16 Hx Capsules 100mg 20caps 1 by 461.8 Victor Hugo Monohydrate mouth Root, - twice a M.D. 10/14 day x days Cyclobenzaprine 07/13 Hx Tablets 5mg 30tabs 1-2 by 723.1 Victor Hugo HCL mouth Root, - three M.D. 09/20 times day as needed Gabapentin 06/22 Hx Capsules 300mg 60caps take 1 723.1 wnt capsule R. Jordin, - by mouth INTERNAL GRINDER TENDER[employer]C 09/20 two times a day for nerve pain. Ranitidine HCL 01/05 Hx Tablets 150mg 60tabs take 1 787.01 tablet Root, - daily to M.D. 10/31 twice daily if needed Azithromycin 01/19 Hx Tablets 250mg 6tabs take 2 466.0 tablets Manav, - today INTERNAL GRINDER TENDER-C 08/11 then tablet daily for the next 4 days Benzonatate 01/19 Hx Capsules 100mg 30caps 1 or 2 466.0 tabs po Manav, - tid prn INTERNAL GRINDER TENDER[employer]C 08/11 cough Gentamicin 10/25 [facility]x [facility] 0.3% [facility] Jordin, - 4 times INTERNAL GRINDER TENDER-C 06/10 daily for 5 days for conjuctiv itis Azelastine HCL 10/25 Hx Solution 0.05% 1month 1 drop 372.03 each eye RPaulina Brenner, - bid for INTERNAL GRINDER TENDER-C 06/10 allergies Clarithromycin 08/10 Hx Tablets 500mg 20tabs 1 po bid 461.0 for sinus R. Jordin, - infection INTERNAL GRINDER TENDER-C 06/10 Nexium 12/[address] 40mg 90caps 1 po qd 530.81 Riri Root M.DPaulina 09/20 Propranolol HCL 06/23 Hx Tablets 10mg 60tabs 1 po bid 300.00 for R. Jordin, - anxiety/p INTERNAL GRINDER TENDER-C 06/10 alpitatio ns Xanax 06/23 Hx Tablets 0.25mg twenty 02/11 to 1 300.00 po bid R. Jordin, - prn INTERNAL GRINDER TENDER-C 06/10 anxiety. Xopenex HFA 12/11 Hx Aerosol [...] Hx Tablets 30-300mg 48tabs 1-2 [facility]8 [facility] Tenzin Brenner, - pain INTERNAL GRINDER TENDER-C 06/04 No Work 03/23 Hx no work 487.8 [place] /2007 due to Tenzin Brenner, - illness, INTERNAL GRINDER TENDER-C 06/04 return once better Tri-Sprintec 09/28 Hx Tablets 0.035mg;0 Unknown .180 mg - 06/04 Flexeril 11/05 Hx Tablets 10mg 30tabs 1 po qhs 723.1 Riri Root M.D. 06/04 Zyrtec 04/01 Hx Chewtabs 5mg 30units one tab Erick JPaulina /2005 qhs Riri Miranda M.D. 11/05 Calcium With 04/01 Hx 600mg two tabs Erick Hernandez Vitamin D /2005 daily Riri Miranda M.D. 06/10 Albuterol 04/01 Hx Inhaler 2units Two Puffs 466.0 Erick JPaulina Metered Dose /2005 Q 4-6 HRS Ruben Inhaler - parmjit Knight 12/11 Flonase Hx Suspension 50mcg/Act 3units 1-2 sprays Riri Root M.D. 09/10 l day Singulair Hx Tablets 10mg 30tabs one qd at [place], /0000 Vern singer MD 10/03 Vesicare Hx Tablets 5mg 1 PO Unknown /0000 Daily - 09/20 Xifaxan Hx Tablets 550mg 1 po bid Unknown /0000 - 10/31 Pepcid ac Hx Chewtabs 10mg Unknown /0000 - 09/20 Celecoxib Hx Capsules 200mg Geno, /0000 Ercik - 04/20 Immunizations CPT Code Status Date Vaccine Lot # [id number] Given 10/29/2017 Influenza Virus Vaccine, Quadrivalent, 3 Yr > [id number] Quad, Preserv Free 27254 Given 12/12/2015 Influenza Virus Vaccine, Quadrivalent, 3 Yr > Quad, Preserv Free 75186 Given 11/22/2014 Influenza Virus Vaccine, Quadrivalent, 3 Yr > [id number] Quad, Preserv Free 59545 Given 11/01/2014 Tdap (Adacel) [id number] 17382 Given 11/24/2013 Influenza Virus Vaccine, Quadrivalent, 3 Yr > Quad, Preserv Free 95213 Given 10/22/2012 Influenza Vaccine-Preservative Free 3 Yrs And [id number] Above 27662 Given 06/02/2012 Hepatitis A, Adult [id number] 90996 Given 11/21/2011 Hepatitis A, Adult [id number] 63036 Given 11/18/2011 Influenza Vaccine-Preservative Free 3 Yrs And [id number] Above 69372 Given 11/15/2010 Influenza Vaccine-Preservative Free 3 Yrs And [id number] Above 31589 Given 11/27/2007 Influenza Virus Vaccine, 3 Yrs And Above [id number] 54259 Given 05/04/2004 Hep B Vaccine Adult, 3 Dose age >20 yrs 66084 Given 04/06/2004 Hep B Vaccine Adult, 3 Dose age >20 yrs 66029 Refused 08/22/2017 Influenza Virus Vaccine, Quadrivalent, 3 Yr > Quad , Preserv Free Vital Signs Date Vital Result Comment 04/20/2018 11:42am Weight 152.00 lb Weight 68.947 kg BP Systolic 100 mmHg BP Diastolic 60 mmHg Heart Rate 69 /min Body Temperature 98.6 F Respiratory Rate 16 /min O2 % BldC Oximetry 99 % 04/07/2018 1:15pm Weight 154.00 lb Weight 69.854 [...] Result H/L Range Note Laboratory test 02/23/2018 [facility] Cortisol 22.21 g/dL 1, 2 finding [phone] Laboratory test 02/23/2018 [facility] Cortisol 15.09 g/dL 3, 4 finding [phone] TSH (Thyroid Stim Horm) 2.06 mcIU/mL N 0.34-5.60 5 Free T4 (Free Thyroxine) 0.67 ng/dL N 0.61-1.12 6 FSH (Follicle Stim Hormone) 88.1 mIU/mL 7 LH (Lutenizing Hormone) 32.9 mIU/mL 8 Xray 01/15/2018 [facility] [facility] Mammography, 12 EXPRESS CHECK-IN # [id number] Diagnostic; Bilateral CBC Auto Diff 09/26/2017 [facility] White Blood Count 5.4 N 3.5-10.8 [phone] 10^3/uL Red Blood Count 3.96 10^6/uL Low [...] Blood Cells % 0.1 Laboratory test 09/26/2017 [facility] C Reactive < 1.00 N <8.01 9 finding [phone] Protein mg/L Laboratory test 09/14/2017 [facility] Lactic Acid 1.7 mmol/L N 0.5-2.0 10 finding [phone] CBC Auto Diff 09/14/2017 [facility] White Blood 6.4 N 3.5-10.8 [phone] Count 10^3/uL Red Blood Count 4.09 10^6/uL [...] Blood Cells % 0 Laboratory test 09/14/2017 [facility] Lactic Acid 3.6 mmol/L High 0.5-2.0 11 finding [phone] Comp Metabolic 09/14/2017 [facility] Sodium 137 mmol/ L N 135-145 Panel [phone] Potassium 3.8 mmol/L N 3.5-5.0 Chloride 104 [...] Egfr 77.2 >60 12 Laboratory test 09/14/2017 [facility] Troponin-I 0.00 ng/mL <0.04 finding [phone] (TnI) CBC Auto Diff 05/03/2017 [facility] White Blood 4.3 N 3.5-10.8 [phone] Count 10^3/uL Red Blood Count 4.21 10^6/uL [...] Blood Cells % 0 Laboratory test 05/03/2017 [facility] TSH (Thyroid 1.06 N 0.34-5.60 finding [phone] Stimulating mcIU/mL Horm) Free Cortisol Serum 0.267 g/dL 13 Flu Test A, B, Or A & B,Binaxn 03/21/2017 In House Lab Influenza A Antigen neg (607)- - Influenza B Antigen neg Laboratory test 01/10/2017 [facility] Cortisol 13.86 14, 15 finding [phone] g/dL Laboratory test 01/10/2017 [facility] Cortisol 18.20 16, 17 finding [phone] g/dL Laboratory test 01/10/2017 [facility] Cortisol 22.38 18 finding [phone] g/dL Laboratory test 01/10/2017 [facility] Cortisol 22.04 19, 20 finding [phone] g/dL CBC Auto Diff 11/18/2016 [facility] White Blood 5.7 10^3/uL N 3.5-6 [phone] Count 0.8 Red Blood Count 4.31 10^6/uL N 4.0-5.4 [...] Blood Cells % 0.1 N Laboratory test 11/18/2016 [facility] Erythrocyte Sed 17 mm/Hr High 0-14 21 finding [phone] Rate Ferritin 53.9 ng/mL N 11-307 22 Liver Function 11/18/2016 [facility] Total Protein 7.2 g/dL N 6.4-8.9 Panel [phone] Albumin 4.5 g/dL N 3.2-5.2 Globulin 2.7 g/dL N 2-4 Albumin/Globulin Ratio 1.7 N 1-3 Total Bilirubin 0.40 mg/dL N 0.2-1.0 Direct Bilirubin 0.10 mg/dL N 0.03-0.18 Indirect Bilirubin 0.3 mg/dL N 0.3-1.0 Alkaline Phosphatase 58 U/L N 34-104 Alt 7 U/L N 7-52 Ast 17 U/L N 13-39 Laboratory test 11/18/2016 [facility] Lyme Disease Negative N Negative 23 finding [phone] Serology CBC Auto Diff 10/23/2016 [facility] White Blood 6.4 10^3/uL N 3.5-10.8 [phone] Count Red Blood Count 4.08 10^6/uL N 4.0-5.4 [...] Nucleated Red Blood Cells % 0 N Laboratory test 10/23/2016 [facility] Erythrocyte Sed 11 mm/Hr N 0-14 24 finding [phone] Rate Basic Metabolic 10/23/2016 [facility] Sodium 136 mmol /L N 133-145 Panel [phone] Potassium 3.9 mmol/L N 3.5-5.0 Chloride 102 mmol/L N 101-111 Co2 Carbon Dioxide 29 mmol/L N 22-32 Anion Gap 5 mmol/L N 2-11 Glucose 78 mg/dL N 70-100 Blood Urea Nitrogen 10 mg/dL N 6-24 Creatinine 0.86 mg/dL N 0.51-0.95 BUN/Creatinine Ratio 11.6 N 8-20 Calcium 9.1 mg/dL N 8.6-10.3 Egfr Non- 71.0 N >60 Egfr 91.4 N >60 25 Laboratory test 10/23/2016 [facility] C Reactive < 1.00 N < 5.00 26 finding [phone] Protein mg/L Babesia Microti 05/22/2016 [facility] Babesia <1:64 N Abs (Igg,Igm) [phone] microti IgG Babesia microti IgM <1:20 N Babesia microti Interpretation See Comment N 27 Laboratory test 05/22/2016 [facility] Vitamin D 37.2 ng/mL N 30-50 28 finding [phone] Total 25(Oh) Cyclic Citrullinated Pep Igg <15.6 U N 29 Erythrocyte Sed Rate 14 mm/Hr N 0-14 30 Lyme Western 05/22/2016 [facility] Lyme Disease Negative N Negative Blot [phone] IgG Ab WB Lyme Disease IgG Bands Present p41, kDa N Lyme Disease IgM Ab WB Negative N Negative Lyme Disease IgM Bands Present p41, kDa N Lyme Disease Interpretation See Comment N 31 Laboratory test 05/22/2016 [facility] Rheumatoid <15 IU/mL N <15 32 finding [phone] Factor Comp Metabolic 05/22/2016 [facility] Sodium 135 mmol/ L N 133-145 Panel [phone] Potassium 4.1 mmol/L N 3.5-5.0 Chloride 103 [...] 61.8 N >60 Egfr 79.5 N >60 33 CBC Auto Diff 05/22/2016 [facility] White Blood 7.9 10^3/uL N 3.5-10.8 [phone] Count Red Blood Count 4.18 10^6/uL N [...] Nucleated Red Blood Cells % 0 N Laboratory test 05/22/2016 [facility] Anaplasma <1: 64 N <1:64 34 finding [phone] Phagocytophilium titer C Reactive Protein < 1.00 mg/L N < 5.00 35 CBC Auto Diff 02/23/2016 [facility] White Blood 6.2 10^3/uL N 3.5-10.8 [phone] Count Red Blood Count 4.32 10^6/uL N [...] Nucleated Red Blood Cells % 0.1 N Comp Metabolic Panel 02/23/2016 [facility] Sodium 135 mmol/L N 133-145 [phone] Potassium 4.1 mmol/L N 3.5-5.0 Chloride 103 [...] 71.4 N >60 Egfr 91.8 N >60 36 Laboratory 02/23/2016 [facility] TSH (Thyroid Stim 1.57 N 0.34-5.60 37 test finding [phone] Horm) mcIU/mL Laboratory 08/30/2015 [facility] Urine Culture And SEE RESULT 38 test finding [phone] Sensitivities BELOW Urine DIP 08/30/2015 [facility] House Lab Leukocytes ++ Neg (607)- - Urine Nitrites NEG Neg Urobilinogen NORM Norm Total Protein, Urine NEG Neg Urine pH 6 5-6 Urine Blood 250 High Neg Specific [place] 1.005 Low 1.01-1.02 Urine Ketones NEG Neg Urine Bilirubin NEG Neg Urine Glucose NORM Norm Lipid Profile 11/22/2014 [facility] Triglycerides 52 mg/dL N 39, 40 (Trig/Chol/HDL) [phone] Cholesterol 231 mg/dL N 41 HDL Cholesterol 66.2 mg/dL N 42 LDL Cholesterol 154 mg/dL N 43 Urine DIP 11/01/2014 In House Lab Specific [place] 1.015 1.01-1.02 (607)- - Urine pH 6 5-6 Leukocytes neg Neg Urine Nitrites neg Neg Total Protein, Urine neg Neg Urine Glucose norm Norm Urine Ketones neg Neg Urobilinogen norm Norm Urine Bilirubin neg Neg Urine Blood neg Neg Stool Panel 10/21/2014 [facility] Stool Culture SEE RESULT 44, 45 (CMC) [phone] BELOW Fecal Lactoferrin (Stool WBC) SEE RESULT BELOW 46 O&P: Giardia/Cryptospor Screen SEE RESULT BELOW 47 Stool Occult Blood SEE RESULT BELOW 48 Laboratory test 09/20/2014 [facility] Troponin I 0.00 N <0.03 49, 50 finding [phone] ng/mL CBC Auto Diff 09/20/2014 [facility] White Blood 6.8 N 4.8-10.8 [phone] Count 10^3/uL Red Blood Count 4.26 10^6/uL [...] Cells % 0.1 N Laboratory test 09/20/2014 [facility] Lactic Acid 0.8 mmol/L N 0.5-2.2 finding [phone] B-Type Natriuretic Peptide BNP 38 pg/mL N 51 Comp Metabolic Panel 09/20/2014 [facility] Sodium 137 mmol/L N 133-145 [phone] Potassium 4.1 mmol/L N 3.5-5.0 Chloride 105 [...] 97.4 N >60 52 Laboratory test 09/20/2014 [facility] Magnesium 2.1 mg/dL N 1.9-2.7 finding [phone] Creatine Kinase 114 U/L N 10-223 Troponin I 0.00 ng/mL N <0.03 53 CKMB 09/20/2014 [facility] CKMB ng/mL 2.2 ng/mL N 0.6-6.3 [phone] Inr/Protime 09/20/2014 [facility] Inr 0.90 N 0.78- 1.07 [phone] Laboratory test 09/20/2014 [facility] Partial 29.3 seconds N 26.0-36.3 finding [phone] Thrombo Time PTT Lyme Western 07/13/2013 [facility] Lyme Disease Negative N Negative Blot [phone] IgG Ab WB Lyme Disease IgG Bands Present p41, kDa N Lyme Disease IgM Ab WB Negative N Negative Lyme Disease IgM Bands Present No bands detecte <SEE NOTE> kDa N 54 Lyme Disease Interpretation See Comment N 55 Arthritis Panel 07/13/2013 [facility] Erythrocyte Sed 15 mm/Hr High 0-14 [phone] Rate Uric Acid 3.4 mg/dL N 2.3-6.6 Shweta (Anti-Nuclear AB) Screen Negative N Negative Rheumatoid Factor <15 IU/mL N <15 56 Surgical 06/21/2013 [facility] S RUN DATE: 57 Pathology [phone] SEE NOTE> Clotest 06/21/2013 [facility] Clotest (SEE NOTE) 58 [phone] Throat-Beta 06/19/2013 [facility] Throat Beta Strep ( SEE NOTE) 59 Strept [phone] Culture Stool For Blood 01/08/2013 [facility] Stool Occult ( SEE NOTE) 60 [phone] Blood Laboratory test 01/08/2013 [facility] Fecal Lactoferrin (SEE NOTE) 61 finding [phone] (Stool WBC) C. difficile Amplified Dna (SEE NOTE) 62 Stool Panel 01/07/2013 [facility] O P: Giardia/ Cryptospor (SEE NOTE) 63 (CMC) [phone] Screen Stool Culture (SEE NOTE) 64 Transglutaminase Igg 01/05/2013 [facility] Tissue < 1.2 65 & Iga [phone] Transglutaminase IgA U/mL Ab Tissue Transglutaminase IgG Ab 2.7 U/mL 66 Comp Metabolic Panel 01/05/2013 [facility] Sodium 139 mmol/L 133-145 [phone] Potassium 4.1 mmol/L 3.5-5.0 Chloride 105 mmol/L [...] Non- 78.7 >60 Egfr 101.2 >60 67 CBC No Diff 01/05/2013 [facility] White Blood 5.8 10^ 3/uL 4.8-10.8 [phone] Count Red Blood Count 4.11 10^6/uL 4.0-5.4 Hemoglobin 12.7 g/dL 12.0-16.0 Hematocrit 38 % 35-47 Mean Corpuscular Volume 91 fL 80-97 Mean Corpuscular Hemoglobin 31 pg 27-31 Mean Corpuscular HGB Conc 34 g/dL 31-36 Red Cell Distribution Width 12 % 10.5-15 Platelet Count 221 10^3/uL 150-450 Mean Platelet Volume 8 um3 7.4-10.4 Laboratory test 01/05/2013 [facility] TSH (Thyroid 2.50 0.34-5.60 finding [phone] Stimulating miu/mL Horm) Laboratory test 01/20/2012 In House Lab Strep Screen NEG Neg finding (607)- - CBC Auto Diff 07/01/2011 [facility] White Blood 6.2 CUMM 4.8-10.8 [phone] Count Red Cell Count 3.97 CUMM Low [...] Abs Basophils 0 0-0.2 Basic Metabolic 07/01/2011 [facility] Sodium 139 mmol /L 135-145 Panel [phone] Potassium 3.7 mmol/L 3.5-5.0 Chloride 107 mmol/L 101-111 Co2 (Carbon Dioxide) 26.0 mmol/L 22-32 Anion Gap 6.0 mmol/L 2-11 68 Glucose 98 mg/dL 70-100 BUN 12 mg/dL 6-24 Creatinine 0.8 mg/dL 0.50-1.40 One Over Creatinine 1.25 BUN/Creatinine Ratio 15.0 8-20 Calcium 9.4 mg/dL 8.1-9.9 eGFR Non- 79.0 > 60 eGFR 101.7 > 60 69 Laboratory test 07/01/2011 [facility] Thyroxine 5.5 g/dL 5-12 finding [phone] T3 Total 0.92 NG/ML 0.5-1.7 TSH 1.97 MIU/ML 0.34-5.60 Laboratory test 07/01/2011 [facility] Magnesium 1.8 mg/dL 1.7-2.6 finding [phone] Laboratory test 10/31/2010 [facility] Sweat Chloride 42 mmol/L 70 finding [phone] CBC Auto Diff 08/10/2010 [facility] White Blood 7.5 CUMM 4.8-10.8 [phone] Count Red Cell Count 3.93 CUMM Low [...] Basophils 0 0-0.2 Comp Metabolic Panel 08/10/2010 [facility] Sodium 137 mmol/L 135-145 [phone] Potassium 3.7 mmol/L 3.5-5.0 Chloride 102 mmol/L [...] 119.2 > 60 73 Laboratory test 08/10/2010 [facility] Monospot NEGATIVE Negative finding [phone] Latoya Moody 08/10/2010 [facility] Ebv Vca Igg Positive Negative Comprehensive [phone] Ebv Vca Igm Negative Negative Ebna Positive Negative Ebv Interpretation SEE BELOW () 74 Laboratory test 08/10/2010 In House Lab Strep Screen NEG Neg finding (607)- - Laboratory test 12/21/2008 [facility] Lipase 23 U/L 22-51 finding [phone] Amylase 42 U/L 30-125 Comp Metabolic Panel 12/21/2008 [facility] Sodium 137 mmol/L 135-145 [phone] Potassium 3.9 mmol/L 3.5-5.0 Chloride 106 mmol/L [...] 90.1 > 60 79 CBC With 12/21/2008 [facility] White Blood 5.8 CUMM 4.8-10.8 Electronic Diff [phone] Count Red Cell Count 4.21 CUMM 4.2-5.4 [...] Abs Basophils 0 0-0.2 Laboratory test 04/15/2007 [facility] Erythrocyte Sed 22 MM/HR High 0-15 finding [phone] Rate Monospot NEGATIVE Negative Shweta (Antinuclear 04/15/2007 [facility] Antinuclear AB NEGATIVE Negative Antibodies) [phone] Comp Metabolic 04/15/2007 [facility] One Over 1.11 Panel [phone] Creatinine Anion Gap 7.0 mmol/L 2-11 80 [...] Creatinine 0.9 mg/dL 0.5-1.4 CBC With 04/15/2007 [facility] White Blood 6.3 CUMM 4.8-10.8 Electronic Diff [phone] Count Abs Basophils 0 0-0.2 Abs Eosinophils [...] (607)- - Quickvue CBC With Manual 03/23/2007 [facility] White Blood 4.8 CUMM 4.8-10.8 Diff [phone] Count Absolute Neutrophil Count 4.0 Hematocrit 32 [...] Distribution WDTH 13 % 10.5-15 Laboratory 03/23/2007 [facility] Erythrocyte Sed 13 MM/HR 0-15 test finding [phone] Rate Shweta 03/23/2007 [facility] Antinuclear AB NEGATIVE Negative (Antinuclear [phone] Antibodies) Laboratory 03/23/2007 [facility] Rheumatoid < 20.0 Less Than test finding [phone] Factor IU/mL 20 Laboratory 03/23/2007 [facility] Cyclic <15.6 U ( ) 81 test finding [phone] Citrullinated Pep Igg Comp Metabolic 03/23/2007 [facility] One Over 1.00 Panel [phone] Creatinine Anion Gap 14.0 mmol/L High 2-11 [...] House Lab Strep Screen NEG Neg finding (727)- - Comp Metabolic Panel 10/03/2006 [facility] One Over Creatinine 1.11 [phone] Anion Gap 6.0 mmol/L 2-11 83 Albumin/Globulin [...] Creatinine 0.9 mg/dL 0.5-1.4 Laboratory test 10/03/2006 [facility] TSH 2.14 MIU/ ML 0.34-5.60 finding [phone] Free Thyroxine 0.60 NG/ML Low 0.61-1.24 84 CBC With Manual 10/03/2006 [facility] White Blood 6.9 CUMM 4.8-10.8 Diff [phone] Count Absolute Neutrophil Count 4.8 Anisocytosis SLIGHT [...] 20 Postmenopausal females 15 - 62 9 [id number] 10 [facility] Severe Sepsis and Septic Shock Management Bundle Measure requires all lactic acids initially measuring >2.0 mmol/L be repeated. 11 Critical Result LACT:3.6 Called to DONTRELL at: 12:13:26 by:[id number] Read back by:DONTRELL [facility] Severe Sepsis and Septic Shock Management Bundle [...] its performance characteristics determined by [facility] in a manner consistent with CLIA requirements. This test has not been cleared or approved by the U.S. Food and Drug Administration. Test Performed by: [facility] Huddle - [address] [address] 14 Comment: baseline 15 AM 8.7-22.4 PM <10 16 Comment: 30 min 17 AM 8.7-22.4 PM <10 18 AM 8.7-22.4 PM <10 19 Comment: 90 min 20 AM 8.7-22.4 PM <10 21 [id number] Serologic response to B. burgdorferi infection is not detected, but cannot rule out early infection during which low or undetectable antibody levels to B. burgdorferi may be present. If clinically indicated, a new serum specimen should be submitted in 7-14 days. Test Performed by: [facility] - [facility] [address] [place] [address] 24 [id number] 25 Because ethnic data is not always [...] (or dialysis) 26 Acute inflammation: >10.00 27 ANTIBODY NOT DETECTED REFERENCE RANGES: IgG <1:64 [...] analytical performance characteristics have been determined by [facility]. It has not been cleared or approved by the U.S. Food and Drug Administration. The FDA has determined that such clearance or approval is not necessary. This assay has been validated pursuant to the CLIA regulations and is used for clinical purposes. Test Performed by: [employer] [address] [place] [address] 28 [id number] 29 REFERENCE VALUE <20.0 (Negative) Test Performed by: [address] [address] 30 [id number] 31 Specific serologic response to B. burgdorferi [...] screening test (e.g., EIA). Test Performed by: [facility] - [address] [address] 32 Test Performed by: [address] [address] 33 Because ethnic data is not always readily [...] 15-29 5 Kidney failure <15 (or dialysis) 34 ADDITIONAL INFORMATION This test was developed using an analyte specific reagent. Its performance characteristics were determined by [facility] in a manner consistent with CLIA requirements. This test has not been cleared or approved by the U.S. Food and Drug Administration. Test Performed by: [facility] - [address] [address] 35 Acute inflammation: >10.00 36 Because ethnic data is not always readily [...] 15-29 5 Kidney failure <15 (or dialysis) 37 [id number] SEE RESULT BELOW Name: LAURENCE PEREZ Rivera : [address]: Renetta Weiner NP Acct: [id number] Unit: [id number] AGE: 45 Location: [facility] Re08/30/15 SEX: F Status: REG REF SPEC: [id number] LAYO: 08/30/15-[address]: Renetta Weinre NP REQ: [id number] RECD: 08/30/15 STATUS: COMP _ SOURCE: URINE SPDESC: ORDERED: Urine Culture COMMENTS: [id number] Procedure Result Reported Site Urine Culture Final 09/01/15- 09 ML No Growth (<1,000 CFU/mL) * ML - MAIN LAB ([facility]) . END OF REPORT * ML=Testing performed at Main Lab DEPARTMENT OF PATHOLOGY, [address], [place], [place] [address] Gigi Miranda M.D. Director [facility] # [id number] 39 FASTING 40 Desirable <150 Borderline high 150-199 High 200-499 Very High >500 41 Desirable <200 Borderline high 200-239 High >239 42 Low <40 Desirable: 40-60 High: >60 43 Desirable: <100 mg/dL Near Optimal: 100-129 mg/dL Borderline High: 130-159 mg/dL High: 160-189 mg/dL Very High: >189 mg/dL 44 KIT AND CUP 45 SEE RESULT BELOW Name: CHRISLAURENCE Rivera : [address]: Justice Qiu III [employer] BANKING SALES ASSISTANT Acct: [id number] Unit: [id number] AGE: 44 Location: [facility] Re10/21/14 SEX: F Status: REG REF SPEC: [id number] LAYO: 10/21/[address]: Jsutice Qiu III BUSINESS BANKING SALES ASSISTANT REQ: [id number] RECD: 10/21/14 STATUS: COMP _ SOURCE: STOOL [...] not recommended. Verbal to GENNARO WALSH by [id number] at 1242 on 10/21/14. Procedure Result Verified [...] performed at Main Lab DEPARTMENT OF PATHOLOGY, [address] [place] [address] Gigi Miranda M.D. Director [facility] # [id number] Patient: LAURENCE PEREZ [id number] (Continued) Specimen: [id number] Collected: 10/21/14 Received: 10/21/14 (Continued) Procedure Result [...] is requested. Contact the Microbiology Department at [phone]. TEST LIMITATIONS: As with all diagnostic procedures, the results obtained should be used in conjunction with other clinical information available the physician, including confirmation by another method. Negative results can occur in samples CONTINUED ON NEXT PAGE * ML=Testing performed at Main Lab DEPARTMENT OF PATHOLOGY, [address] [place] [address] Gigi Miranda M.D. Director [facility] # [id number] Patient: LAURENCE PEREZ [id number] (Continued) Specimen: [id number] Collected: 10/21/14 Received: 10/21/14 (Continued) Procedure Result [...] not recommended. * ML - MAIN LAB ([facility]) . END OF REPORT * ML=Testing performed at Main Lab DEPARTMENT OF PATHOLOGY, [address] [place] [address] Gigi Miranda M.D. Director [facility] # [id number] 46 SEE RESULT BELOW Name: LAURENCE PEREZ : [address]: Justice Qiu III BUSINESS BANKING SALES ASSISTANT Acct: [id number] Unit: [id number] AGE: 44 Location: [facility] Re10/21/14 SEX: F Status: REG REF SPEC: [id number] LAYO: 10/21/[address]: Justice Qiu III BUSINESS BANKING SALES ASSISTANT REQ: [id number] RECD: 10/21/14 STATUS: RES _ SOURCE: STOOL [...] not recommended. Verbal to GENNARO WALSH by [id number] at 1242 on 10/21/14. Procedure Result Verified [...] performed at Main Lab DEPARTMENT OF PATHOLOGY, [address] [place] [address] Gigi Miranda M.D. Director [facility] # [id number] Patient: LAURENCE PEREZ [id number] (Continued) Specimen: [id number] Collected: 10/21/14 Received: 10/21/14 (Continued) Procedure Result [...] is requested. Contact the Microbiology Department at [phone]. TEST LIMITATIONS: As with all diagnostic procedures, [...] not recommended. * ML - MAIN LAB ([facility]) . END OF REPORT * ML=Testing performed at Main Lab DEPARTMENT OF PATHOLOGY, [address] [place] [address] Gigi Miranda M.D. Director [facility] # [id number] 47 SEE RESULT BELOW Name: LAURENCE PEREZ : [address]: Justice Qiu III BUSINESS BANKING SALES ASSISTANT Acct: [id number] Unit: [id number] AGE: 44 Location: [facility] Re10/21/14 SEX: F Status: REG REF SPEC: [id number] LAYO: 10/21/[address]: Justice Qiu III BUSINESS BANKING SALES ASSISTANT REQ: [id number] RECD: 10/21/14 STATUS: RES _ SOURCE: STOOL [...] not recommended. Verbal to GENNARO WALSH by [id number] at 1242 on 10/21/14. Procedure Result Verified [...] performed at Main Lab DEPARTMENT OF PATHOLOGY, [address] [place] [address] Gigi Miranda M.D. Director [facility] # [id number] Patient: LAURENCE PEREZ [id number] (Continued) Specimen: [id number] Collected: 10/21/14 Received: 10/21/14 (Continued) Procedure Result Verified Site O P: Giardia/Cryptospor Screen Final (continued) 10/21/14- 141 Giardia and cryptosporidium antigen testing performed by enzyme immunoassay. If patient is immunocompromised or has traveled to or is from a developing country, a full ova and parasite exam with microscopic (OPMIC) is recommended. All samples will be held one month in case full ova and parasite testing is requested. Contact the Microbiology Department at [phone]. TEST LIMITATIONS: As with all diagnostic procedures, [...] not recommended. * ML - [facility] LAB ([facility]) . END OF REPORT * ML=Testing performed at Main Lab DEPARTMENT OF PATHOLOGY, [address] [place] [address] Gigi Miranda M.D. Director [facility] # [id number] 48 SEE RESULT BELOW Name: LAURENCE PEREZ : [address]: Justice Qiu III BUSINESS BANKING SALES ASSISTANT Acct: [id number] Unit: [id number] AGE: 44 Location: [facility] Re10/21/14 SEX: F Status: REG REF SPEC: [id number] LAYO: 10/21/[address]: Justice Qiu III BUSINESS BANKING SALES ASSISTANT REQ: [id number] RECD: 10/21/14 STATUS: RES _ SOURCE: STOOL [...] Screen PENDING * ML - MAIN LAB ([facility]) . END OF REPORT * ML=Testing performed at Main Lab DEPARTMENT OF PATHOLOGY, [address] [place] [address] Gigi Miranda M.D. Director [facility] # [id number] 49 Comment: s 50 Reference Range and Interpretation: TnI (ng/mL) Interpretation Less Than 0.03 ng/mL Not supportive of diagnosis of CT 0.03 - 0.50 ng/mL Indeterminate: suggest serial studies if clinically indicated. Greater than 0.5 ng/mL Consistent with diagnosis of CT 51 >100 to <200 pg/mL: likely compensated [...] 0.03 ng/mL Not supportive of diagnosis of CT 0.03 - 0.50 ng/mL Indeterminate: suggest serial studies if clinically indicated. Greater than 0.5 ng/mL Consistent with diagnosis of CT 54 No bands detected 55 Specific serologic [...] screening test (e.g., EIA). Test Performed by: [address] [address] Shank Skinner: Rudi Erickson III, M.D. 56 Test Performed by: [address] [address] Shank Skinner: Rudi Erickson III, M.D. 57 RUN DATE: 06/22/13 [facility] LAB LIVE PAGE 1 RUN TIME: [address] [place] [address] Specimen Inquiry Name: LAURENCE PEREZ : [address]: Wesly Esposito MD Acct: [id number] Unit: [id number] AGE: 43 Location: ENDO Re06/21/13 SEX: F Status: REG REF SPEC: [id number] LAYO: 06/21/13- SUBM DR: Wesly Esposito MD REQ: [id number] RECD: 06/21/13 STATUS: ROBERT CURRY DR: Victor [...] specimen is received in formalin labeled Laurence RiveraPaulina Perez, Biopsy Duodenum and consists of a 0.4 x 0.2 x 0.2 cm. dale-pink, irregular, soft tissue fragment. Submitted entirely, one cassette. CONTINUED ON NEXT PAGE * ML=Testing performed at Main Lab DEPARTMENT OF PATHOLOGY, [address] [place] [address] Gigi Miranda M.D. Director [facility] # [id number] RUN DATE: 06/22/13 [facility] LAB LIVE PAGE 2 RUN TIME: 1454 [facility] [address] [place], [place] [address] Specimen Inquiry Patient: CHRISLAURENCE Stafford [id number] (Continued) GROSS DESCRIPTION (Continued) GROSS DESCRIPTION (Continued) 2. The specimen is received in formalin labeled Laurence Perez, Gastric Biopsies and consists of a 0.4 x 0.3 x 0.1 cm. aggregate of multiple, dale-pink, irregular , soft tissue fragments. Submitted entirely, one cassette. Signed (signature on file) Gigi Miranda MD 1455 END OF REPORT * ML=Testing performed at Main Lab DEPARTMENT OF PATHOLOGY, [address] [place] [address] Gigi Miranda M.D. Director [facility] # [id number] 58 RUN DATE: 06/22/13 [facility] LAB LIVE PAGE 1 RUN TIME: [address] [place] [address] Specimen Inquiry Name: LAURENCE PEREZ : [address]: Wesly Esposito MD Acct: [id number] Unit: [id number] AGE: 43 Location: ENDO Re06/21/13 SEX: F Status: REG REF SPEC: [id number] LAYO: 06/21/[address] [facility] [address]: Wesly Esposito MD REQ: [id number] RECD: 06/21/13 STATUS: MARGA CURRY DR: Victor Hugo Root MD _ SOURCE: GAS ANTRUM SPDESC: ORDERED: Clotest COMMENTS: Comment: COPY TO DR. ROOT - THANKS Procedure Result Verified Site Clotest Final 06/22/13- 0756 ML Clotest Negative END OF REPORT * ML=Testing performed at Main Lab DEPARTMENT OF PATHOLOGY, [facility] [place] [address] Gigi Miranda M.D. Director [facility] # [id number] 59 RUN DATE: 06/22/13 [facility] LAB LIVE PAGE 1 RUN TIME: [address] [place] [address] Specimen Inquiry Name: LAURENCE PEREZ Rivera : [address]: Jaki Pandya MD Acct: [id number] Unit: [id number] AGE: 43 Location: [facility] Re06/19/13 SEX: F Status: DEP ER SPEC: [id number] LAYO: 06/19/[address] [facility] [address]: Jaki Pandya MD REQ: [id number] RECD: 06/20/13 STATUS: MARGA CURRY DR: [facility] Victor Hugo Root MD _ SOURCE: THROAT SPDESC: ORDERED: Throat Beta Str Procedure Result Verified Site Throat Beta Strep Culture Final 06/22/13827 ML Negative For Group A Beta Streptococcus END OF REPORT * ML=Testing performed at Main Lab DEPARTMENT OF PATHOLOGY, [address] [place] [address] Gigi Miranda M.D. Director [facility] # [id number] RUN DATE: 01/08/13 [facility] LAB LIVE PAGE 1 RUN TIME: [address] [facility], [place], [place] [address] Specimen Inquiry Name: LAURENCE PEREZ : [address]: Victor Hugo Root MD Acct: [id number] Unit: [id number] AGE: 42 Location: [facility] Re01/07/13 SEX: F Status: REG REF SPEC: [id number] LAYO: 01/08/[address]: Victor Hugo Root MD REQ: [id number] RECD: 01/08/13 STATUS: RES _ SOURCE: STOOL SPDESC: ORDERED: Hemoccult, Fecal Lactoferr, C. diff Amp DNA QUERIES: [employer] Number [id number] Procedure Result Verified Site Stool Specimen Description Final 01/08/13- 1204 ML Stool Color Brown Stool Form Semi-formed Stool Consistency Soft C. difficile Amplified DNA PENDING Fecal Lactoferrin (Stool WBC) PENDING Stool Occult Blood Final 01/08/13- 1230 ML Stool Occult Blood Negative END OF REPORT * ML=Testing performed at Main Lab DEPARTMENT OF PATHOLOGY, [facility] [place], [place] [address] Gigi Miranda M.D. Director [facility] Permit #[id number] 61 RUN DATE: 01/08/13 [facility] LAB LIVE PAGE 1 RUN TIME: 1421 [facility] [place] [place], [place] [address] Specimen Inquiry Name: LAURENCE PEREZ : [address]: Victor Hugo Root MD Acct: [id number] Unit: [id number] AGE: 42 Location: [facility] Re01/07/13 SEX: F Status: REG REF SPEC: [id number] LAYO: 01/08/[address] [facility] [address]: Victor Hugo Root MD REQ: [id number] RECD: 01/08/13 STATUS: RES _ SOURCE: STOOL SPDESC: ORDERED: Hemoccult, Fecal Lactoferr, C. diff Amp DNA QUERIES: [employer] Number [id number] Procedure Result Verified Site Stool Specimen Description [...] performed at Main Lab DEPARTMENT OF PATHOLOGY, [facility] [place], [place] [address] Gigi Miranda M.D. Director [facility] Permit #[id number] 62 RUN DATE: 01/08/13 [facility] LAB LIVE PAGE 1 RUN TIME: 6832 [facility] [place], [place] [address] Specimen Inquiry Name: LAURENCE PEREZ Rivera : [address]: Victor Hugo Root MD Acct: [id number] Unit: [id number] AGE: 42 Location: [facility] Re01/07/13 SEX: F Status: REG REF SPEC: [id number] LAYO: 01/08/[address]: Victor uHgo Root MD REQ: [id number] RECD: 01/08/13120 STATUS: COMP _ SOURCE: STOOL SPDESC: ORDERED: Hemoccult, Fecal Lactoferr, C. diff Amp DNA QUERIES: [employer] Number [id number] Procedure Result Verified Site Stool Specimen Description [...] performed at Main Lab DEPARTMENT OF PATHOLOGY, [facility] [place], [place] [address] Gigi Miranda M.D. Director [facility] Permit #[id number] RUN DATE: 01/08/13 [facility] LAB LIVE PAGE 2 RUN TIME: 2804 [facility] [place], [place] [address] Specimen Inquiry Patient: LAURENCE PEREZ [id number] (Continued) Specimen: [id number] Collected: 01/08/13 Received: 01/08/13-120 (Continued) Procedure Result Verified Site Fecal Lactoferrin (Stool WBC) Final (continued) 01/08/13- 1421 Fecal samples from breast fed infants should not be used with this assay. Stool Occult Blood Final 01/08/13- 1230 ML Stool Occult Blood Negative END OF REPORT * ML=Testing performed at Main Lab DEPARTMENT OF PATHOLOGY, [facility] [place], [place] [address] Gigi Miranda M.D. Director [facility] Permit #[id number] 63 RUN DATE: 01/08/13 [facility] LAB LIVE PAGE 1 RUN TIME: 1207 [facility] [place], [place] [address] Specimen Inquiry Name: CHRISLAURENCE L : [address]: Victor Hugo Root MD Acct: [id number] Unit: [id number] AGE: 42 Location: [facility] Re01/07/13 SEX: F Status: REG REF SPEC: [id number] LAYO: 01/07/13-[address]: Victor Hugo Root MD REQ: [id number] RECD: 01/07/13 STATUS: RES _ SOURCE: STOOL SPDESC: ORDERED: Stool Culture, O P: Giar/Crypt COMMENTS: NO PLAIN CONTAINER RECEIVED OF 1530 ON 01/07/13 QUERIES: [employer] Number [id number] Procedure Result Verified Site Stool Culture PENDING [...] is requested. Contact the Microbiology Department at [phone]. TEST LIMITATIONS: As with all diagnostic procedures, the results obtained should be used in conjunction with other clinical information available the physician. Negative results can occur in samples containing antigen below lower limits of detection of the assay. The use of colonic washes, CONTINUED ON NEXT PAGE * ML=Testing performed at Main Lab DEPARTMENT OF PATHOLOGY, [facility] [place], [place] [address] Gigi Miranda M.D. Director [facility] Permit #[id number] RUN DATE: 01/08/13 [facility] LAB LIVE PAGE 2 RUN TIME: 6[address] [facility] [place], [place] [address] Specimen Inquiry Patient: LAURENCE PEREZ [id number] (Continued) Specimen: [id number] Collected: 01/07/13 Received: 01/07/13 (Continued) Procedure Result Verified Site O P: Giardia/Cryptospor Screen Final (continued) 01/08/13 1206 aspirates or other diluted sample types has not been established and could affect the performance of the assay. Stool samples contaminated with an oily or particulate base (eg. Barium, mineral oil etc.) could interfere with the test and are not recommended. END OF REPORT * ML=Testing performed at Main Lab DEPARTMENT OF PATHOLOGY, [facility] [place], [place] [address] Gigi Miranda M.D. Director [facility] Permit #[id number] RUN DATE: 01/09/13 [facility] LAB LIVE PAGE 1 RUN TIME: 1102 [facility] [place], [place] [address] Specimen Inquiry Name: LAURENCE PEREZ : [address]: Victor Hugo Root MD Acct: [id number] Unit: [id number] AGE: 42 Location: [facility] Re01/07/13 SEX: F Status: REG REF SPEC: [id number] LAYO: 01/07/13-[address]: Victor Hugo Root MD REQ: [id number] RECD: 01/07/139276 STATUS: COMP _ SOURCE: STOOL SPDESC: ORDERED: Stool Culture, O P: Giar/Crypt COMMENTS: NO PLAIN CONTAINER RECEIVED OF 1530 ON 01/07/13 QUERIES: [employer] Number [id number] Procedure Result Verified Site Stool Culture Final [...] performed at Main Lab DEPARTMENT OF PATHOLOGY, [facility] [place], [place] [address] Gigi Miranda M.D. Director [facility] Permit #[id number] RUN DATE: 01/09/13 [facility] LAB LIVE PAGE 2 RUN TIME: 445 [facility] [address] [place], [place] [address] Specimen Inquiry Patient: LAURENCE PEREZ [id number] (Continued) Specimen: [id number] Collected: 01/07/13 Received: 01/07/13 (Continued) Procedure Result [...] is requested. Contact the Microbiology Department at [phone]. TEST LIMITATIONS: As with all diagnostic procedures, [...] performed at Main Lab DEPARTMENT OF PATHOLOGY, [address] [place] [address] Gigi Miranda M.D. Director [facility] Permit #[id number] 65 -- REFERENCE VALUE -- <4.0 (Negative) 66 -- REFERENCE VALUE -- <6.0 (Negative) Test Performed by: [address] [address] Shank Skinner: Rudi Erickson III, M.D. 67 Because ethnic [...] Please note: Test was performed using the [employer] SWEAT[employer]K conductivity analyzer and is meant as [...] has been shown to interfere with the Jendrgregoriaik-[place] method for measuring total bilirubin. Samples from [...] with EBV. Test Performed by: [facility] Dpt of Lab Med and Pathology [address] [place] [address] Shank Skinner: Rudi Erickson III, M.D. 75 Anion gap measurement may be of limited value in the presence of any alkalosis, especially in a combined acid base disorder. . 76 Note change in reference range as of 10/01/07. The change was based on recommendations from the [place] [employer]. 77 Please note change in reference range effective 07 . 78 A metabolite of Naproxen, O-desmethylnaproxen, has been shown to interfere with the Jendrassik-[place] method for measuring total bilirubin. Samples from [...] (Strong Positive) Test Performed by: [facility] Dpt of Lab Med and Pathology [address] [place] [address] Shank Skinner: Rudi Erickson III, M.D. 82 Anion gap measurement may be of limited value in the presence of any alkalosis, especially in a combined acid base disorder. . 83 Anion gap measurement may be of limited value in the presence of any alkalosis, especially in a combined acid base disorder. . 84 PLEASE NOTE NEW REFERENCE RANGES. Procedures Date Code Description Status 04/20/2018 39925 EKG, at Least 12 Leads w/Interpretation and Report Completed 02/23/2016 11979 EKG, at Least 12 Leads w/Interpretation and Report Completed 09/20/2014 86863 EKG, at Least 12 Leads w/Interpretation and Report Completed 07/04/2011 74779 Wearable ECG Monitor/Report W/Visual Superimposition Completed Scanning 07/02/2011 83725 EKG, at Least 12 Leads w/Interpretation and Report Completed Encounters Type Date Location Provider Dx Diagnosis Office Visit 04/07/2018 Main Office Carla Caceres J01.90 Acute sinusitis, 1:15p Antonia Lama unspecified Office Visit 03/04/2018 Main Office Faustino Milton Z80.41 Family history of 4:30p malignant neoplasm of ovary N95.1 Menopausal and female climacteric states Office Visit 02/20/2018 3:15p Main Office Faustino Milton MD R53.83 Other fatigue G47.01 Insomnia due to medical condition Office Visit 01/15/2018 4:30p Main Office Victor Hugo Root M.D. 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 M54.2 Cervicalgia Office Visit 11/20/2016 3:30p Main Office Victor Hugo Root M.D. M54.2 Cervicalgia M54.30 Sciatica, unspecified side Office Visit 11/18/2016 11:15a Main Office Faustino Milton M25.549 Pain in joints of MD unspecified hand R06.02 Shortness of breath Z87.11 Personal history of peptic ulcer disease Office Visit 10/23/2016 4:00p Main Office Faustino Heetderks, M25.549 Pain in joints of MD unspecified hand J01.90 Acute sinusitis, unspecified Office Visit 10/07/2016 9:30a Main Office Renetta Weiner, J01.90 Acute sinusitis, INTERNAL [employer]ER T[employer]ER-C unspecified Office Visit 07/16/2016 3:00p Main Office Justice Qiu R42 Dizziness and III, INTERNAL [employer]ER T[employer]ER-C giddiness J18.9 Pneumonia, unspecified organism Office Visit 05/22/2016 3:00p Main Office Renetta Weiner, INTERNAL GRINDER TENDER-C M54.2 Cervicalgia M25.50 Pain in unspecified joint Office Visit 03/20/2016 3:15p Main Office Victor Hugo Root M.D. F41.9 Anxiety disorder, unspecified Office Visit 02/22/2016 4:45p Main Office Victor Hugo Root M.D. F41.9 Anxiety disorder, unspecified Office Visit 08/30/2015 10:45a Main Office Renetta Weiner, N39.0 Urinary tract [employer]NAL [employer]ER T[employer]ER-C infection, site not specified H81.10 Benign paroxysmal vertigo, unspecified ear Office Visit 11/01/2014 3:15p Main Office Victor Hugo Root M.D. Z00.00 Encntr for general adult medical exam w/o abnormal findings E78.0 Pure hypercholesterolemia V06.5 Tetanus Diphtheria (DT) Office Visit 10/14/2014 2:30p Main Office Justice Qiu 564.1 Irritable Bowel III, INTERNAL [employer] TENDER-C Syndrome Office Visit 09/20/2014 4:00p Main Office Justice Qiu 786.50 Pain Chest Unspec III, INTERNAL [employer]ER-C Office Visit 07/16/2014 11:30a Main Office Victor Hugo Root M.D. 461.8 Sinusitis Acute Other Office Visit 07/13/2013 2:15p Main Office Victor Hugo Root M.D. 723.1 Cervicalgia Office Visit 06/22/2013 9:30a Main Office Radames Dave 723.1 Cervicalgia Storm, INTERNAL GRINDER TENDER-C 719.41 Pain Joint Shoulder Region Office Visit 01/05/2013 3:45p Main Office Victor Hugo Root 787.01 Nausea W/ Vomiting Antonia Office Visit 01/20/2012 11:45a Main Office Renetta Weiner, 466.0 Bronchitis Acute INTERNAL [employer]-C Office Visit 07/22/2011 9:30a Main Office Renetta Manav, 989.5 Toxic Effect Of INTERNAL [employer]ER TENDER-C Venom Office Visit 07/02/2011 3:30p Main Office Victor Hugo Root, 785.1 Palpitations M.D. 785.1 Palpitations Office Visit 10/25/2010 3:45p Main Office Radames RPaulina Storm, INTERNAL GRINDER TENDER-C 786.2 Cough 372.03 Conjunctivitis Mucopurulent Other Office Visit 08/10/2010 3:30p Main Office Radames Dave 461.0 Sinusitis Acute Storm, INTERNAL [employer]ER T[employer]ER-C Maxillary Office Visit 12/28/2008 4:00p Main Office Johnna A. 530.81 Esophageal Reflux Cole, F.N.P.C. Office Visit 12/21/2008 10:30a Main Office Johnna Arizmendi 789.06 Pain Abdominal Cole, Epigastric F.N.P.C. Office Visit 06/23/2008 11:30a Main Office Radames Dave 300.00 Anxiety State Storm, INTERNAL [employer]ER TENDER-C Unspec Office Visit 04/05/2008 2:45p Main Office Victor Hugo Root M.D. 716.98 Arthropathy Unspec Other Spec Sites Office Visit 12/12/2007 10:15a Main Office Mel Flores 466.0 Bronchitis Acute Antonia Zapata Office Visit 06/05/2007 2:30p Main Office Radames Dave 493.90 Asthma Unspec W/O Storm, INTERNAL [employer] T[employer]ER-C Status Asthmaticus 625.3 Dysmenorrhea 424.0 Mitral Valve Disorder Office Visit 04/15/2007 8:45a Main Office Victor Hugo Root 465.9 URI Upper M.D. Respiratory Infections Acute Unspec Sites Office Visit 03/23/2007 10:30a Main Office Radames Dave 487.8 Influenza W/ Other Storm, INTERNAL [employer]ER TENDER-C Manifestations Office Visit 03/09/2007 3:15p Main Office Radames Dave 465.8 Upper Respiratory Storm, INTERNAL GR[employer]ER TENDER-C Infections Acute Other Multiple Sites Office Visit 10/03/2006 12:00p Main Office Victor Hugo Root, 780.79 Malaise And Fatigue M.D. Other Office Visit 11/05/2005 4:45p Main Office Victor Hugo Root 723.1 Jone Knight Office Visit 04/01/2005 1:15p Main Office Erick Hernandez V70.0 Examination General Ruben M.D. Medical Routine AT Health Care Facility Plan of Treatment No Information Available
[2018-04-27 18:49] LABS: ABS Basophils 0.1 10^3/ul (0-0.2); ABS Eosinophils 0.1 10^3/ul (0-0.6); ABS Monocytes 0.5 10^3/ul (0-0.8); ABS Neutrophils 4.3 10^3/ul (1.5-7.7); ABS Nucleated RBC 0 10^3/ul; Hematocrit 39 % (33-41); Hemoglobin 13.3 g/dL (12.0-16.0); Lymphocyte % 29.4 %; Mean Corpuscular HGB Conc 34 g/dL (31-36); Mean Corpuscular Hemoglobin 31 pg (27-31); Mean Corpuscular Volume 91 fL (80-97); Mean Platelet Volume 7.5 fL (7.4-10.4); Nucleated Red Blood Cells % 0; Platelet Count 253 10^3/uL (150-450); Red Blood Count 4.29 10^6 /uL (3.70-4.87); Red Cell Distribution Width 13 % (10.5-15); White Blood Count 6.9 10^3/uL (3.5-10.8)
[2018-04-27 19:07] LABS: Albumin 4.7 g/dL (3.2-5.2); Albumin/Globulin Ratio 1.7 (1-3); BUN/Creatinine Ratio 9.6 (8-20); Calcium 9.6 mg/dL (8.6-10.3); EGFR African American 88.8 (>60); EGFR Non-African American 73.4 (>60); Globulin 2.8 g/dL (2-4); Potassium 3.4 mmol/L (3.5-5.0); Total Bilirubin 0.4 mg/dL (0.2-1.0); Total Protein 7.5 g/dL (6.4-8.9)
--- NOTE | 2018-04-27 19:25 | ED ---
HPI Chest Pain - HPI Summary HPI Summary: The patient is a 48 y/o F presenting to [facility] with a chief complaint of sudden onset mid-sternal CP that doesn't radiate lasting for a week. She visited her PCP, who did an EKG to reveal no significant changes. Since then, she's experienced SOB, burning sensations in the neck, nausea without vomiting, and decreased appetite. She also notes that she took her BP, and it was higher than normal at 144/85 mmHG. Currently, the pressure in her chest is rated 6/10 in severity. She denies changes in urinary frequency. Hx of anxiety, GERD, and asthma. FHx of cardiac disease. - History of Current Complaint Chief Complaint: EDChestPainROMI Time Seen by Provider: 04/27/18 17:48 Hx Obtained From: Patient Hx Last Menstrual Period: 1 1/2 WEEKS AGO Onset/Duration: Started Days Ago - approximately a week, Still Present Timing: Lasting Days - a week Initial Severity: Moderate Current Severity: Moderate Pain Intensity: 6 Pain Scale Used: 0-10 Numeric Chest Pain Location: Mid Sternal Chest Pain Radiates: No Character: Pressure/Squeezing Aggravating Factor(s): Nothing Alleviating Factor(s): Nothing Associated Signs and Symptoms: Positive: Shortness of Breath, Nausea, Other: - burning sensations in the neck. Negative: Vomiting - Allergy/Home Medications Allergies/Adverse Reactions: Allergies Allergy/AdvReac Type Severity Reaction Status Date / Time amoxicillin [From Augmentin] Allergy Diarrhea Verified 04/27/18 17:47 clavulanic acid Allergy Diarrhea Verified 04/27/18 17:47 [From Augmentin] Iodinated Contrast- Oral and Allergy Hives Verified 04/27/18 17:47 IV Dye morphine Allergy Hives Verified 04/27/18 17:47 Home Medications: Home Medications Amitriptyline TAB* [Elavil TAB*] 10 mg PO BEDTIME 04/27/18 [History Confirmed ] PMH/Surg Hx/FS Hx/Imm Hx Endocrine/Hematology History: Denies: Hx Diabetes Cardiovascular History: Denies: Hx Hypertension, Hx Pacemaker/ICD Respiratory History: Reports: Hx Asthma GI History: Reports: Hx Diverticulosis, Hx Gastroesophageal Reflux Disease, Hx Irritable Bowel, Hx Ulcer, Other GI Disorders - IBS; DIVERTICULOSIS History: Denies: Hx Renal Disease Musculoskeletal History: Reports: Hx Arthritis, Hx Back Problems Sensory History: Reports: Hx Contacts or Glasses Denies: Hx Hearing Aid Opthamlomology History: Reports: Hx Contacts or Glasses Neurological History: Reports: Hx Headaches Comment Only: Other Neuro Impairments/Disorders - PAIN CLINIC PT Psychiatric History: Reports: Hx Anxiety - does not take any meds for this Denies: Hx Panic Disorder - Cancer History Hx Chemotherapy: No Hx Radiation Therapy: No - Surgical History Surgery Procedure, Year, and Place: BREAST IMPLANTS. C SECTION. HYSTERECTOMY. Neck Surgery Infectious Disease History: No Infectious Disease History: Reports: History Other Infectious Disease - "TRAVELER'S DIARRHEA" Denies: Traveled Outside the [place] in Last 30 Days - Family History Known Family History: Positive: Cardiac Disease - in father - Social History Alcohol Use: Occasionally Alcohol Amount: 3-4 drinks/week Substance Use Type: Reports: None Substance Use Comment - Amount & Last Used: CBD oil Smoking Status (MU): Never Smoked Tobacco Have You Smoked in the Last Year: No Review of Systems Positive: Chest Pain - mid-sternal pressure, Other - increased BP Positive: Shortness Of Breath Positive: Nausea, Other - decreased appetite. Negative: Vomiting Negative: frequency - normal Positive: Other - burning sensations in neck All Other Systems Reviewed And Are Negative: Yes Physical Exam - Summary Physical Exam Summary: Constitutional: Well-developed, Well-nourished, Alert. (-) Distressed, Anxious Skin: Warm, Dry HENT: Normocephalic; Atraumatic Eyes: Conjunctiva normal Neck: Musculoskeletal ROM normal neck. (-) JVD, (-) Stridor, (-) Tracheal deviation Cardio: Rhythm regular, rate normal, Heart sounds normal; Intact distal pulses; The pedal pulses are 2+ and symmetric. Radial pulses are 2+ and symmetric. (-) Murmur Pulmonary/Chest wall: Effort normal. (-) Respiratory distress, (-) Wheezes, (-) Rales Abd: Soft, (-) tenderness, (-) Distension, (-) Guarding, (-) Rebound Musculoskeletal: (-) Edema Lymph: (-) Cervical adenopathy Neuro: Alert, Oriented x3 Psych: Mood and affect Normal Triage Information Reviewed: Yes Vital Signs On Initial Exam: Initial Vitals Temp Pulse Resp BP Pulse Ox 98.1 F 88 16 155/87 100 04/27/18 17:43 04/27/18 17:43 04/27/18 17:43 04/27/18 17:43 04/27/18 17:43 Vital Signs Reviewed: Yes Diagnostics - Vital Signs Vital Signs Temp Pulse Resp BP Pulse Ox 04/27/18 17:43 98.1 F 88 16 155/87 100 - Laboratory Lab Results: Lab Results 04/27/18 04/27/18 04/27/18 Range/Units 18:43 18:43 18:43 WBC 6.9 (3.5-10.8) 10^3/uL RBC 4.29 (3.70-4.87) 10^6 /uL Hgb 13.3 (12.0-16.0) g/dL Hct 39 (33-41) % MCV 91 (80-97) fL MCH 31 (27-31) pg MCHC 34 (31-36) g/dL RDW 13 (10.5-15) % Plt Count 253 (150-450) 10^3/uL MPV 7.5 (7.4-10.4) fL Neut % (Auto) 62.1 % Lymph % (Auto) 29.4 % [place] % (Auto) 6.7 % Eos % (Auto) 1.0 % Baso % (Auto) 0.8 % Absolute Neuts (auto) 4.3 (1.5-7.7) 10^3/ul Absolute Lymphs (auto) 2.0 (1.0-4.8) 10^3/ul Absolute Monos (auto) 0.5 (0-0.8) 10^3/ul Absolute Eos (auto) 0.1 (0-0.6) 10^3/ul Absolute Basos (auto) 0.1 (0-0.2) 10^3/ul Absolute Nucleated RBC 0 10^3/ul Nucleated RBC % 0 Sodium 136 (135-145) mmol/L Potassium 3.4 L (3.5-5.0) mmol/L Chloride 100 L (101-111) mmol/L Carbon Dioxide 26 (22-32) mmol/L Anion Gap 10 (2-11) mmol/L BUN 8 (6-24) mg/dL Creatinine 0.83 (0.51-0.95) mg/dL Est GFR ( Amer) 88.8 (>60) Est GFR (Non-Af Amer) 73.4 (>60) BUN/Creatinine Ratio 9.6 (8-20) Glucose 99 (70-100) mg/dL Lactic Acid 1.2 (0.5-2.0) mmol/L Calcium 9.6 (8.6-10.3) mg/dL Total Bilirubin 0.40 (0.2-1.0) mg/dL AST 22 (13-39) U/L ALT 9 (7-52) U/L Alkaline Phosphatase 75 (34-104) U/L Troponin I 0.00 (<0.04) ng/mL Total Protein 7.5 (6.4-8.9) g/dL Albumin 4.7 (3.2-5.2) g/dL Globulin 2.8 (2-4) g/dL Albumin/Globulin Ratio 1.7 (1-3) Lipase 20 (11.0-82.0) U/L Result Diagrams: 04/27/18 18:43 04/27/18 18:43 Lab Statement: Any lab studies that have been ordered have been reviewed, and results considered in the medical decision making process. - Radiology CXR Radiology Interpretation Completed By: Radiologist Summary of Radiographic Findings: No acute process. ED physician has reviewed this report. - EKG 1754 Cardiac Rate: NL - 82 BPM EKG Rhythm: Sinus Rhythm Summary of EKG Findings: Normal sinus rhythm at 82 bpm, normal MO, normal QRS, normal QTc, normal axis, normal ST, normal T-waves, normal EKG. Re-Evaluation - Re-Evaluation First Eval Re-Evaluation Time: 19:30 Change: Unchanged Comment: I spoke with the patient concerning lab work which showed low potassium but is otherwise normal. Second Eval Re-Evaluation Time: 20:45 Change: Unchanged Comment: I discussed negative CXR and UA results. She will be given a Duoneb for SOB. Third Eval Re-Evaluation Time: 22:20 Change: Worse Comment: She states that she is itchy after the Duoneb. I will give her Atarax. Chest Pain Course/Dx - Course Course Of Treatment: The patient is a 48 y/o F presenting to [facility] with a chief complaint of sudden onset mid-sternal chest pain and pressure lasting for a week with associated SOB, nausea without vomiting, and burning sensations in the neck. Hx of anxiety, GERD, and asthma. Upon physical exam, she is anxious with epigastric tenderness. In the ED course, the patient was administered with Potassium, Duoneb and Atarax. Blood work reveals low potassium but is otherwise normal. UA is negative. EKG is NSR at 82 BPM. CXR reveals no acute process. She is diagnosed with chest pain. She will be discharged home with follow up with PCP. - Diagnoses Provider Diagnoses: Chest pain Discharge - Sign-Out/Discharge Documenting (check all that apply): Patient Departure - Patient will be discharged home. Patient Received Moderate/Deep Sedation with Procedure: No - Discharge Plan Condition: Good Disposition: HOME Patient Education Materials: Chest Pain (ED) Print Language: MALTESE Referrals: Victor Hugo Root MD [Primary Care Provider] - - Billing Disposition and Condition Condition: GOOD Disposition: Home - Attestation Statements Document Initiated by Lucy: Yes Documenting Scribe: Светлана Chisholm Provider For Whom Lucy is Documenting (Include Credential): Dr. Radha Blanca MD Scribe Attestation: Светлана Martinez scribed for Dr. Radha Blanca MD on 04/27/18 at 2231. Scribe Documentation Reviewed: Yes Provider Attestation: The documentation as recorded by the Светлана tubbs accurately reflects the service I personally performed and the decisions made by me, Dr. Radha Blanca MD Status of [place] Document: Viewed
[2018-04-27] MEDS ORDERED: Potassium Chlor TAB* 20 MEQ TAB.ER PO ONE (19:27)
[2018-04-27] MEDS ORDERED: Albuterol/Ipratropium NEB.SOL* Albuterol 2.5 MG/Ipratropium 0.5 MG 3 ML INH ONE (20:50)
[2018-04-27 21:24] LABS: Urine Appearance Clear; Urine Bilirubin Negative (Negative); Urine Blood Negative (Negative); Urine Color Straw; Urine Glucose Negative (Negative); Urine Ketones Negative (Negative); Urine Nitrite Negative (Negative); Urine Protein Negative (Negative); Urine Specific Gravity 1.003 (1.010-1.030); Urine Urobilinogen Negative (Negative)
[2018-04-27 22:17] VITALS: BP 119/61
[2018-04-27] MEDS ORDERED: hydrOXYzine HCL TAB* 50 MG PO ONE (22:20)
== END 2018-04-27 22:33 | disposition home or self-care (01) ==
LOC: ED 17:40
DX: R07.9 Chest pain, unspecified (principal); R06.02 Shortness of breath; R11.0 Nausea; Z88.0 Allergy status to penicillin; Z88.6 Allergy status to analgesic agent; K21.9 Gastro-esophageal reflux disease without esophagitis
CPT/HCPCS: 36415; 71045; 80053; 81003; 83605; 83690; 84484; 85025; 93005; 99283; A9270-GY

== ENCOUNTER 2019-02-26 07:12 | Emergency (ER) | payer BC ==
[2019-02-26] MEDS ORDERED: NS 0.9% 1000 ML** 1,000 ML IV ONE (07:36)
[2019-02-26 07:37] LABS: Influenza A Molecular POSITIVE (Negative)
--- OUTSIDE RECORDS SUMMARY | 2019-02-26 07:41 | XMS REPORT | Continuity of Care Document ---
:1970 External Reference #:[id number] Author Name Erick Lora M.D. (transmitted by agent of provider Nory Sagastume) Address [address] [place] [address] Care Team Providers Name Role Phone Victor Hugo Root M.D. - Family Medicine Care Team Information Facing End Trimmer [phone] Faustino Milton MD - Family Care Team Information Facing End Trimmer [phone] Medicine Problems Active Problems Provider Date Palpitations Tessie Garcia D.O. Onset: 07/10/2011 Heart murmur [place] ECHO Schedule Onset: 08/07/2011 Social History Type Date Description Comments Sex Unknown Tobacco Use Start: Unknown Never Smoked Cigarettes Smoking Status Reviewed: 02/09/19 Never Smoked Cigarettes ETOH Use Occasional Tobacco Use Start: Unknown Patient has never smoked Recreational Drug Use Denies Drug Use Exercise Type/Frequency Exercises regularly walking Allergies, Adverse Reactions, Alerts Active Allergies Reaction Severity Comments Date Morphine 07/05/2011 Augmentin 07/05/2011 CT Dye Hives Moderate 08/05/2018 Medications Active Medications SIG Qnty Indications Ordering Date Provider Clotrimazole/Betame apply twice daily 45gm Erick Lora, 02/09/2019 thasone to affected lips as M.D. Dipropionate needed 1-0.05% Cream Sweat Chloride Test Pls perform sweat Marley Schwarz, 10/27/2018 chloride for cystic MD fibrosis Sodium Chloride inhale 1 vial via 720units J47.9 Marley Karishma, 2018 3% nebulizer three MD Nebulizer times a day for secretions Nebulizer 1 unit nebulization 1units J47.9 Marley Schwarz, 09/18/2018 Device with albuterol MD every 6 hours and as needed Nebulizer 1 unit nebulization 1units J47.9 Malrey Schwarz, 09/18/2018 Kit/Tubing/Mouthpie every 4- 6 hours as MD mcgarry needed Kit Flutter use as instructed 1units J47.9 Marley Schwarz, 09/18/2018 Device twice a day Levalbuterol HCL 1 unit daily and as 24ml J45.909 Marley Schwarz, 2018 needed 0.63mg/3ML Nebulizer Zenpep Take One Capsule By Unknown Mouth Three Times A [id number] Day With Meals And Caps DR Rajani Snacks Miralax take 1 packet daily Unknown 3350NF as needed for Packet constipation Black Cohosh 2 by mouth every Unknown Extract day 80mg Capsules Colace 1 tab by mouth 2-3 Unknown 100mg times a day as Capsules needed SymbicoAlexander Pike, 160-4.5mcg/Act Aerosol Rizatriptan 1 by mouth as Unknown Benzoate needed for headache 10mg may repeat once in Tablets 2 hours max 2 days a week Qnasl as needed Unknown 80mcg/Act Aerosol Azelastine HCL 1 drop each eye Unknown (Ophthalmic) twice daily prn 0.05% Solution Meclizine HCL Take One Tablet By Unknown 25mg Mouth Up To Three Tablets Times A Day For Vertigo Omeprazole 1 by mouth every Unknown 40mg day Capsules DR Loratadine 1 po qd 20tabs Unknown 10mg Tablets Xopenex HFA 2 puffs qid prn 1units Unknown 45mcg/Act Aerosol History Medications Qvar Redihaler Inhale One puff 10.6units J45.909 Marley Schwarz, 2018 - By Mouth Twice 02/09/2019 80mcg/Act Aerosol A Day Immunizations Description No Information Available Vital Signs Date Vital Result Comment 02/09/2019 12:15pm Height 63.5 inches 5'3.50" Weight 139.38 lb Heart Rate 65 /min BP Systolic Sitting 110 mmHg BP Diastolic Sitting 70 mmHg Body Temperature 98.0 F Pain Level 8 O2 % BldC Oximetry 98 % BMI (Body Mass Index) 24.3 kg/m2 09/18/2018 6:40am Height 63.5 inches 5'3.50" Weight 143.00 lb Heart Rate 56 /min BP Systolic Sitting 98 mmHg Lue regular cuff BP Diastolic Sitting 56 mmHg Lue regular cuff Respiratory Rate 12 /min O2 % BldC Oximetry 98 % BMI (Body Mass Index) 24.9 kg/m2 Neck Circumference in inches 13 Results Test Acquired Date Facility Test Result H/L Range Note Cystic Fibrosis 09/18/2018 [facility] Cystic WB Whole Screen [address] [place] [address] Specimen [phone] Cystic Fibrosis Method See Comment 1 Cystic Fibrosis Result Summary MUTATION IDENTIF <SEE NOTE> 2 Cystic Fibrosis Result See Comment 3 Cystic Fibrosis Interpretation See Comment 4 Cystic Fibrosis Add Info See Comment 5 Cystic Fibrosis Released By See Comment 6 1 The multiplex PCR based assay utilizing the June Blackbox Array platform was used to detect 106 mutations, including the 23 mutations specified in the [employer] ([employer]) standards for population based carrier screening. The mutations are as follows: [id number], ydhwmC131, G542X, G85E, R117H, F9336Z (TGG>TGA), 621+1G>T, 711+1G>T, B7333S (C>A), M9935A (C>G), R334W, R347P, A455E, 1717-1G>A, R553X, R560T, G551D, 1898+1G>A, 2184delA, 2789+5G>A, 3120+1G>A, K9802G, 3659delC, 3849+10kbC>T, the deletion of exons 2-3, 296+2T>A, E60X, R75X, 394_395delTT, 405+1G>A, 406-1G>A, E92X, 444delA, 457TAT>G, R117C, Y122X, 574delA, 663delT, G178R, 711+5G>A, 712-1G>T, H199Y, P205S, L206W, 020wwm59, 935delA, 936delTA, fnozhA065, 1078delT, G330X, T338I, R347H, R352Q, Q359K, T360K, 1288insTA, S466X (C>A), S466X (C>G), G480C, Q493X, 1677delTA, C524X, S549N, S549R (T>G), Q552X, A559T, 1811+1.6kbA>G, 1812-1G>A, 1898+1G>T, 1898+1G>C, 1898+5G>T, P574H, 8247cpe03, 2043delG, 6266sds1>A, 2229mdb88tfi3, 2108delA, 2143delT, 2183_2184delAAinsG, 2184insA, R709X, K710X, 2307insA, R764X, Q890X, 2869insG, 3171delC, 1967njf8, I7674D, C9719N (TGG>TAG), T0437Z (C>G), H1115K (C>A), Z9449I, L2115D, Y8418T, C4752O, 0635ftc0, D8294N, W7210S (TGG>TAG), 3791delC, R1055Y, 3876delA, M2017L, L7461Y, 3905insT, and 4016dupT mutations are detected. Poly T determination and confirmatory testing of homozygous results are performed as reflex tests when appropriate. 2 MUTATION IDENTIFIED 3 The following heterozygous sequence change was identified: Amino Acid: [id number] (p.[id number] ([id number])) DNA change: c.1521_1523delCTT ([id number]) Classification: PATHOGENIC 4 This result indicates that this individual is at minimum a carrier of cystic fibrosis (CF) and may be at risk to have an affected child. If appropriate, genetic testing should be offered to this individual's reproductive partner to further clarify their risk of having a child with CF. If testing was ordered to rule out CF, this result does not exclude the diagnosis because some patients with CF have mutations that are not detected by this assay. The likelihood for an affected individual to have a mutation not detected by this assay depends on the family history and ethnic background of the patient. Since this information was not provided, we are unable to provide a revised risk for this patient. Additional genetic testing strategies, such as full gene analysis of the CFTR gene (CFTRZ / CFTR Gene, Full Gene Analysis), should be considered for identifying mutations that are not detected by this assay. Contact the [facility] at . This result should be interpreted in the context of clinical findings, family history, and other laboratory testing (e.g. sweat chloride testing). Since a mutation has been identified, genetic testing of at risk family members could be considered. A genetic consultation may be of benefit. ADDITIONAL INFORMATION Please note that this assay cannot exclude segmental UPD or low level mosaicism for the indicated chromosome(s). An online research opportunity called Testlio (Xockets.Ecovision), a project of [employer], is available for the recipient of this genetic test. This patient registry collects de-identified genetic and health information to advance the knowledge of genetic variants. [facility] is a collaborator of [employer]. This may not be applicable for all tests. Test results should be interpreted in the context of clinical findings, family history, and other laboratory data. Misinterpretation of results may occur if the information provided is inaccurate or incomplete. Rare polymorphisms exist that could lead to false-negative or false-positive results. If results obtained do not match the clinical findings, additional testing should be considered. Bone Marrow transplants from allogenic donors will interfere with testing. Call [facility]ingMe for instructions for testing patients who have received a bone marrow transplant. This test was developed and its performance characteristics determined by [facility] in a manner consistent with CLIA requirements. This test has not been cleared or approved by the U.S. Food and Drug Administration. 5 ALTERNATE NOMENCLATURE The c.1521_1523delCTT nucleotide change for this alteration is also called c.1653_1655delCTT. 6 RESULT: Samira Smith M.D., Ph.D. 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 02/09/2019 L71.0 Perioral dermatitis Erick Lora M.D. 02/09/2019 M79.10 Myalgia, unspecified site Erick Lora M.D. 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 Marley Schwarz MD 09/18/2018 J45.909 Unspecified asthma, uncomplicated Marley Schwarz MD Plan of Treatment 02/09/2019 - Erick Lora M.D.J98.4 Other disorders of lungNew Labs: Angiotensin Converting Enzyme, Ordered: 02/09/19Interluekin-10, Ordered: Thyroperoxidase AB, Ordered: 02/09/19Neutrophil Cytoplasmic AB, Ordered: 02/09Interleukin 6, Ordered: 02/09/19T&B Cell Lymphocyte Evaluation, Ordered: 02/09/19Miscellaneous Test, Ordered: 02/09/19M06.1 Adult-onset Still's diseaseNew Labs:Ferritin, Ordered: 02/09/19Erythrocyte Sed Rate, Ordered: C Reactive Protein, Ordered: 02/09/19L71.0 Perioral whszahbgeuW19.10 Myalgia, unspecified site Functional Status Functional Condition Comment Date Status Glasses Active Mental Status Description No Information Available Referrals Refer to Dr Reason for Referral Status Appt Date Tramaine Villasenor MD Please evaluate patient with joint pain for a Sent 00/00 /0000 possible inflammatory arthropathy to : Dr Sherry Villasenor phone # [phone] pt transferring care [address] [place] [address] [phone]
--- OUTSIDE RECORDS SUMMARY | 2019-02-26 07:41 | XMS REPORT | Summary of Care ---
:1970 Author Organization [facility] Address [address] [place] [address] Care Team Providers Name Role Phone Marley Schwarz MD Primary Care Provider Reason for Referral Consultation (Routine) Status Reason Specialty Diagnoses / Referred By Referred To Procedures Contact Contact Open Specialty Pulmonary Disease Diagnoses Sarcoid Eva Alford, Virgen / Pulmonology MBBS Required [address] [place] [address] [address] [place] [address] Email: [email or web address] Reason for Visit Reason Comments Cystic Fibrosis Encounter Details Date Type Department Care Team Description 02/22/2019 Office Visit [facility] PEDIATRIC Alexander Albrecht MD Sarcoid (Primary Dx) PULMONARY AND CYSTIC [address] [facility] FIBROSIS CENTER at 2nd Floor [address] [place] [address] [facility], Room [phone] [address] [place] [phone] Allergies Active Allergy Reactions Severity Noted Date Comments Amoxicillin-Pot Other (See Comments) Low 08/23/2013 H/o c diff Clavulanate Cefuroxime Itching, Rash Low 12/08/2018 Environmental Other (See Comments) Medium 12/08/2018 seasonal Iodinated Diagnostic Hives, Nausea And High 09/10/2013 Patient states had Agents Vomiting nausea all day no vomiting about 5 minutes after exam was done patient vomited possible reaction to iv contast Morphine Hives High 08/23/2013 documented as of this encounter (statuses as of 02/22/2019) Medications Medication Sig Dispensed Refills Start Date End Date Status azelastine (OPTIVAR) Place 1 drop into 0 Active 0.05 % ophthalmic both eyes daily as solution needed docusate sodium Take 100 mg by 0 08/24/2013 Active (COLACE) 100 MG mouth every morning capsule fluticasone (FLONASE) 1 spray every other 0 10/01/2018 Active 50 MCG/ACT nasal day AM, Alternate spray with Q-nasal ibuprofen Take 200 mg by 0 Active (ADVIL,MOTRIN) 200 MG mouth every 6 (six) tablet hours as needed XOPENEX HFA 45 every 6 (six) hours 0 09/02/2018 Active MCG/ACT inhaler as needed levalbuterol INHALE THE CONTENTS 3 09/18/2018 Active (XOPENEX) 0.63 MG/3ML OF ONE VIAL VIA nebulizer solution NEBULIZER EVERY DAY NEEDED omeprazole (PRILOSEC) 40 mg every morning 0 11/15/2018 Active 40 MG capsule loratadine (CLARITIN) Take by mouth every 0 Active 10 MG tablet morning LORazepam (ATIVAN) TAKE 1/2 TO 1 0 12/03/2018 Active 0.5 MG tablet TABLET TWO TIMES A DAY NEEDED FOR ANXIETY MAXIMUM DAILY DOSE 2 naproxen sodium Take 220 mg by 0 Active (ANAPROX) 220 MG mouth as needed tablet rizatriptan 10 mg as needed 0 07/25/2018 Active (MAXALT[employer]ANT) 10 MG disintegrating tablet Black Cohosh 540 MG Take by mouth Twice 0 Active CAPS Daily Beclomethasone every other day AM, 0 Active Dipropionate 80 Alternating MCG/ACT AERS w/Flonase polyethylene glycol Take 17 g by mouth 255 g 5 12/08/2018 Active (GLYCOLAX) daily as needed powderIndications: Constipation, unspecified constipation type dornase jefe Inhale 2.5 mg into 450 mL 3 12/09/2018 Active (PULMOZYME) the lungs Two Times inhalation Daily solutionIndications: 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 montelukast Take 1 tablet by 90 tablet 3 12/14/2018 Active (SINGULAIR) 10 MG mouth nightly tabletIndications: Mild persistent asthma without complication budesonide-formoterol Inhale 2 puffs into 3 Inhaler 3 12/14/2018 Active (SYMBICORT) 160-4.5 the lungs Two Times MCG/ACT Daily inhalerIndications: Mild persistent asthma without complication sodium chloride 3 % Take 4 mLs by 720 mL 3 12/14/2018 Active inhalation nebulization Two solutionIndications: Times Daily Mild persistent asthma without complication Additional information Patient taking differently: 4 mL Nebulization Three Times Daily Standard, Reported on 12/28/2018 2:26 PM [employer] [id number] UNIT Oral Take 1 capsule by 270 capsule 5 12/30/2018 Active Capsule Delayed Release mouth Three times ParticlesIndications: High daily with meals And sweat chloride, Constipation, snacks. unspecified constipation type Levalbuterol HCl 0.63 MG/3ML Take 1 ampule by 0 Active Inhalation Nebulization nebulization every 4 Solution (XOPENEX) (four) hours as needed for Wheezing Hyoscyamine Sulfate ER 0.375 Take 0.375 mg by 0 Active MG Oral Tablet Extended mouth daily Release 12 Hour (LEVBID) documented as of this encounter (statuses as of 02/22/2019) Active Problems Problem Noted Date Cystic fibrosis transmembrane conductance regulator-related metabolic 2018 syndrome documented as of this encounter (statuses as of 02/22/2019) Social History Tobacco Use Types Packs/Day Years Used Date Never Smoker 0 Smokeless Tobacco: Never Used Alcohol Use Drinks/Week oz/Week Comments Yes 2-3 in a month Sex Assigned at Date Recorded Not on file Job Start Date Occupation Industry Not on file Not on file Not on file Travel History Travel Start Travel End No recent travel history available. documented as of this encounter Last Filed Vital Signs Vital Sign Reading Time Taken Comments Blood Pressure 130/79 02/22/2019 5:28 PM EST Pulse 60 02/22/2019 5:28 PM EST Temperature 36.8 02/22/2019 5:28 PM EST C (98.2 F) Respiratory Rate 18 02/22/2019 5:28 PM EST Oxygen Saturation 100% 02/22/2019 5:28 PM EST Inhaled Oxygen Concentration - - Weight - - Height - - Body Mass Index - - documented in this encounter Progress Notes Eva Alford MBBS - 02/22/2019 4:00 PM EST Reason For Visit : Follow up for possible Cystic Fibrosis History Of Present Illness: Danay Mojica is a year old who is here for a follow up.She was seen in the CF clinic for evaluation of possible CF. Her sweat chloride was 54 suggest CF metabolic syndrome. She has one copy of [id number]. Lung function Was normal. CT chest was done which and was negative for bronchiectasis changes. Itshowed hilar and mediastinal lymphadenopathy which was biopsied and was positive for non- necrotising granulomas.CF Genetic results were reviewed today which ruled out cystic fibrosis. She has h/o adult still's disease, IBS, diverticulosis, fibromyalgia, ROLANDO on CPAP, plantar fascitis. 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 DDD (degenerative disc disease), cervical DDD (degenerative disc disease), lumbar Fibromyalgia IBS (irritable bowel syndrome) Mitral valve prolapse ROLANDO (obstructive sleep apnea) Plantar fasciitis PONV (postoperative nausea and vomiting) Past Surgical History: Past Surgical History: Procedure Laterality Date BREAST ENHANCEMENT SURGERY 2000 SECTION 1998 HYSTERECTOMY 2013 RI [facility] EBUS GUIDED SAMPL 1/2 NODE STATION/STRUX N/A 01/21/2019 Procedure: [facility] EBUS GUIDED SAMPL 1/2 NODE STATION/STRUX with cytology; Surgeon: Emily [place] MD; Location: [facility]; Service: Endoscopy; Laterality: N/A; SPINE SURGERY 2017 c-spine Allergies: Iodinated diagnostic agents; Morphine; Environmental; Amoxicillin-pot clavulanate; and Cefuroxime Family History: Family History Problem Relation Age of Onset Cystic fibrosis Niece Social History: Social History Socioeconomic History Marital status: Spouse name: None Number of children: None Years of education: None Highest education level: None Occupational History None Social Needs Financial resource strain: None Food insecurity: Worry: None Inability: None Transportation needs: Medical: None Non-medical: None Tobacco Use Smoking status: Never Smoker Smokeless tobacco: Never Used Substance and Sexual Activity Alcohol use: Yes Comment: 2-3 in a month Drug use: Never Sexual activity: None Lifestyle Physical activity: Days per week: None Minutes per session: None Stress: None Relationships Social connections: Talks on phone: None Gets together: None Attends restorationism service: None Active member of club or organization: None Attends meetings of clubs or organizations: None Relationship status: None Intimate partner violence: Fear of current or ex partner: None Emotionally abused: None Physically abused: None Forced sexual activity: None Other Topics Concern None Social History Narrative None Home Medications: Current Outpatient Medications: azelastine (OPTIVAR) 0.05 % ophthalmic solution, Place 1 drop into both eyes daily as needed, Disp: , Rfl: Beclomethasone Dipropionate 80 MCG/ACT AERS, every other day AM, Alternating w/Flonase, Disp: , Rfl: Black Cohosh 540 MG CAPS, Take by mouth Twice Daily , Disp: , Rfl: budesonide-formoterol (SYMBICORT) 160-4.5 MCG/ACT inhaler, Inhale 2 puffs into the lungs TwoTimes Daily, Disp: 3 Inhaler, Rfl: 3 docusate sodium (COLACE) 100 MG capsule, Take 100 mg by mouth every morning , Disp: , Rfl: dornase jefe (PULMOZYME) inhalation solution, Inhale 2.5 mg into the lungs Two Times Daily, Disp: 450 mL, Rfl: 3 fluticasone (FLONASE) 50 MCG/ACT nasal spray, 1 spray every other day AM , Alternate with Q-nasal, Disp: , Rfl: Hyoscyamine Sulfate ER 0.375 MG Oral Tablet Extended Release 12 Hour ( LEVBID), Take 0.375 mgby mouth daily, Disp: , Rfl: ibuprofen (ADVIL,MOTRIN) 200 MG tablet, Take 200 mg by mouth every 6 ( six) hours as needed ,Disp: , Rfl: levalbuterol (XOPENEX) 0.63 MG/3ML nebulizer solution, INHALE THE CONTENTS OF ONE VIAL VIA NEBULIZER EVERY DAY NEEDED, Disp: , Rfl: 3 Levalbuterol HCl 0.63 MG/3ML Inhalation Nebulization Solution (XOPENEX) , Take 1 ampule by nebulization every 4 (four) hours as needed for Wheezing, Disp: , Rfl: loratadine (CLARITIN) 10 MG tablet, Take by mouth every morning , Disp: , Rfl: LORazepam (ATIVAN) 0.5 MG tablet, TAKE 1/2 TO 1 TABLET TWO TIMES A DAY NEEDED FOR ANXIETYMAXIMUM DAILY DOSE 2, Disp: , Rfl: 0 montelukast (SINGULAIR) 10 MG tablet, Take 1 tablet by mouth nightly, Disp: 90 tablet, Rfl: 3 naproxen sodium (ANAPROX) 220 MG tablet, Take 220 mg by mouth as needed , Disp: , Rfl: omeprazole (PRILOSEC) 40 MG capsule, 40 mg every morning , Disp: , Rfl: polyethylene glycol (GLYCOLAX) powder, Take 17 g by mouth daily as needed, Disp: 255 g, Rfl:5 rizatriptan (MAXALT[employer]SULTANT) 10 MG disintegrating tablet, 10 mg as needed , Disp: , Rfl: sodium chloride 3 % inhalation solution, Take 4 mLs by nebulization Two Times Daily (Patienttaking differently: Take 4 mLs by nebulization Three times daily ), Disp: 720 mL, Rfl: 3 XOPENEX HFA 45 MCG/ACT inhaler, every 6 (six) hours as needed , Disp: , Rfl: Zenpep [id number] UNIT Oral Capsule Delayed Release Particles, Take 1 capsule by mouth Three times daily with meals And snacks., Disp: 270 capsule, Rfl: 5 Review Of Systems: Review of Systems Constitutional: fatigue HENT: nasal congestion. Respiratory:dry cough, denies shortness of breath. Cardiovascular: Negative for chest pain and palpitations. Gastrointestinal: abdominal bloating, loose stool. Genitourinary: Negative for dysuria, flank pain, frequency, hematuria. Musculoskeletal: back pain and myalgias. Skin: rash. Neurological: Negative for dizziness, weakness, light-headedness, numbness and headaches. Vitals: Vitals: 02/22/19 1728 BP: 130/79 Pulse: 60 Resp: 18 Temp: 36.8 C (98.2 F) SpO2: 100% Physical Exam Constitutional: oriented to person, place, and time. appears well-developed and well-nourished. No distress. HENT: Head: Normocephalic and atraumatic. Eyes: Conjunctivae are normal. Right eye exhibits no discharge. Left eye exhibits no discharge. Neck: Normal range of motion. Cardiovascular: Normal rate, regular rhythm, normal heart sounds and intact distal pulses. Exam reveals no friction rub. No murmur heard. Pulmonary/Chest: Effort normal and breath sounds normal. No respiratory distress. no wheezes. has no rales. exhibits no tenderness. Abdominal: No distension, no tenderness, Bowel sound present. Musculoskeletal: exhibits no edema, tenderness or deformity. Lymphadenopathy: no cervical adenopathy. Neurological: No focal weakness. Coordination normal. Skin: Skin is warm. No erythema. Psychiatric:normal mood and affect. Behavior is normal. Judgment and thought content normal. Assessment and Plan: 48 year old female came for evaluation for CF: # CF: Ruled out # Mediastinal lymphadenopathy: likely Sarcoid. Results of the genetic testing ruled out Cystic fibrosis. Biopsy of the mediastinal lymphadenopathywas positive for non- necrotising granuloma likely sarcoid. Will discharge her from Adult CF clinic. Referral made for sarcoid clinic. Discussed in detail with the patient. Patient was seen and assessment and plan was discussed with Dr.Sexton Eva Alford PGY5 Pulmonary & Critical Care Medicine documented in this encounter Plan of Treatment Date Type Specialty Care Team Description 03/08/2019 Office Visit Pediatric Pulmonology Emily [place] MD [address] [place] [address] [address]nd [place] [address] [phone] Name Type Priority Associated Order Schedule Diagnoses Ambulatory referral Outpatient Referral Routine Sarcoid Ordered: to Pulmonology 02/22/2019 Health Maintenance Due Date Last Done Comments MMR Vaccines (1 of 1 - Standard 1971 series) Varicella Vaccines (1 of 2 - 1971 2-dose childhood series) Pneumococcal Vaccine: Pediatrics 1976 (0 to 5 Years) and At-Risk Patients (6 to 64 Years) (1 of 1 - PPSV23) HIV Screening 1983 Cervical Cancer Screening 5 years 1991 DTaP,Tdap,and Td Vaccines (2 - Td) 11/29/2014 11/01/2014 Influenza Vaccine 11/10/2018 Pneumococcal Vaccine: 65+ Years (1 2035 of 2 - PCV13) HIB Vaccines Aged Out No longer eligible based on patient's age to complete this topic Hepatitis A Vaccines Aged Out No longer eligible based on patient's age to complete this topic Hepatitis B Vaccines Aged Out No longer eligible based on patient's age to complete this topic IPV Vaccines Aged Out No longer eligible based on patient's age to complete this topic documented as of this encounter Results Not on filedocumented in this encounter Visit Diagnoses Diagnosis Sarcoid - Primary Sarcoidosis documented in this encounter
--- OUTSIDE RECORDS SUMMARY | 2019-02-26 07:41 | XMS REPORT | Summary of Care ---
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 (Primary Dx); PULMONARY AND [address] [place] High sweat chloride; CYSTIC FIBROSIS 2nd Floor Constipation, unspecified constipation type CENTER at [address] [phone] [place] [address], Room [address] [place] [address] Allergies Active Allergy Reactions Severity Noted Date Comments Amoxicillin-Pot Other (See Comments) Low 08/23/2013 H/o c diff Clavulanate Cefuroxime 12/08/2018 Environmental 12/08/2018 Iodinated Diagnostic Hives, Nausea And 09/10/2013 Patient states had Agents Vomiting nausea all day no vomiting about 5 minutes after exam was done patient vomited possible reaction to iv contast Morphine Hives 08/23/2013 documented as of this encounter (statuses as of 01/01/2019) Medications Medication Sig Dispensed Refills Start Date End Date Status azelastine (OPTIVAR) daily as needed 0 Active 0.05 % ophthalmic solution docusate sodium Take 100 mg by 0 08/24/2013 Active (COLACE) 100 MG mouth Daily capsule fluticasone (FLONASE) 1 spray as needed 0 10/01/2018 Active 50 MCG/ACT nasal spray ibuprofen Take 200 mg by 0 Active (ADVIL,MOTRIN) 200 MG mouth every 6 (six) tablet hours as needed XOPENEX HFA 45 every 6 (six) hours 0 09/02/2018 Active MCG/ACT inhaler as needed levalbuterol INHALE THE CONTENTS 3 09/18/2018 Active (XOPENEX) 0.63 MG/3ML OF ONE VIAL VIA nebulizer solution NEBULIZER EVERY DAY NEEDED omeprazole (PRILOSEC) 40 mg daily 0 11/15/2018 Active 40 MG capsule loratadine (CLARITIN) Take by mouth as 0 Active 10 MG tablet needed LORazepam (ATIVAN) TAKE 1/2 TO 1 0 12/03/2018 Active 0.5 MG tablet TABLET TWO TIMES A DAY NEEDED FOR ANXIETY MAXIMUM DAILY DOSE 2 naproxen sodium Take 220 mg by 0 Active (ANAPROX) 220 MG mouth as needed tablet rizatriptan 10 mg as needed 0 07/25/2018 Active (MAXALT-MAGNETO SPECIALIST) 10 MG disintegrating tablet Black Cohosh 540 MG Take by mouth daily 0 Active CAPS Beclomethasone 0 Active Dipropionate 80 MCG/ACT AERS polyethylene glycol Take 17 g by mouth [...] Daily Standard, Reported on 12/28/2018 2:26 PM rifAXIMin 550 MG Take 550 mg 0 12/23/2018 01/06/2019 Active Oral Tablet by mouth (XIFAXAN) Three times daily ZENPEP Take 1 200 capsule 0 12/08/2018 12/30/2018 Discontinued [id number] units capsule by (Reorder) capsuleIndications mouth Three : High sweat times daily chloride, with meals Constipation, And snacks. unspecified constipation type Hospital, Clinic, or Other Ordered Dose Route Frequency Start Date End Date Status Facility Administered Medication levalbuterol (XOPENEX HFA) 2 puff IN Once 12/28/2018 12/28/2018 Ended inhaler 2 puff documented as of this encounter (statuses as of 01/01/2019) Active Problems Problem Noted Date Cystic fibrosis transmembrane conductance regulator-related metabolic 2018 syndrome documented as of this encounter (statuses as of 01/01/2019) Social History Tobacco Use Types Packs/Day Years Used Date Never Smoker 0 Smokeless Tobacco: Never Used Sex Assigned at Date Recorded Not on file Job Start Date Occupation Industry Not on file Not on file Not on file Travel History Travel Start Travel End No recent travel history available. documented as of this encounter Last Filed Vital Signs Vital Sign Reading Time Taken Comments Blood Pressure 145/90 12/28/2018 2:18 PM EST Pulse 73 12/28/2018 2:18 PM EST Temperature 37.3 12/28/2018 2:18 PM EST C (99.1 F) Respiratory Rate 18 12/28/2018 2:18 PM EST Oxygen Saturation 99% 12/28/2018 2:18 PM EST Inhaled Oxygen Concentration - - Weight 62.2 kg (137 lb 3.2 oz) 12/28/2018 2:18 PM EST Height 163.6 cm (5' 4.41") 12/28/2018 2:18 PM EST Body Mass Index 23.25 12/28/2018 2:18 PM EST documented in this encounter Patient Instructions Patient InstructionsAyde Zapata RN - 12/28/2018 1:30 PM ESTPlan: Obtain genetic blood work (2nd floor) documented in this encounter Progress Notes Emily Bradford MD - 12/28/2018 1:30 PM EST Subjective: Patient ID: Danay Mojica is a 48 y.o. female. Reason for visit -Follow up of CF metabolic syndrome. HPI The patient was seen as a new consult for evaluation of cystic fibrosis. Patient has a niece with Cystic fibrosis. Patient has been evaluated by GI for abdominal pain. She reports not being able to tolerate fatty food. H/O C diff infection in the past. She reports the stool gets better after taking enzymes. She also reports cough with wheezing and chest heaviness for months. She has cough and difficulty breathing.She feels fatigued and weak. She has lost 20 lbs weight in the past year. She also reports sinus issues with bad seasonal allergies, sore throat and post nasal drip. She has lot of sinus congestion. She has extreme fattigue and muscle aches especially on hot days. With these symptoms she is here for evaluation of cystic fibrosis. She has h/o adult still's disease, IBS, diverticulosis, fibromyalgia, ROLANDO on CPAP, plantar fascitis. She had 23 in me done which revealed a single copy of [id number]. She is already on symbicort, singulair, flonase and claritin for allergic rhinitis and asthma. Afterstarting pulmozyme and hypertonic she reported some improvement in her symptoms. However still reports being congested. 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 Danay has a past surgical history that includes section (1998); Breast enhancement surgery (2000); and Hysterectomy (2013). Her family history includes Cystic fibrosis in her niece. Danay reports that she has never smoked. She has never used smokeless tobacco. She reports that she does not use drugs. No history on file for alcohol. Danay has a current medication list which includes the following prescription (s): azelastine, beclomethasone dipropionate, black cohosh, budesonide- formoterol, docusate sodium, dornase jefe, fluticasone, ibuprofen, levalbuterol , loratadine, lorazepam, montelukast, naproxen sodium, omeprazole, polyethylene glycol, rifaximin, rizatriptan, sodium chloride, xopenex hfa, and zenpep. Current Outpatient Medications on File Prior to Visit Medication Sig Dispense Refill azelastine (OPTIVAR) 0.05 % ophthalmic solution daily as needed Beclomethasone Dipropionate 80 MCG/ACT AERS Black Cohosh 540 MG CAPS Take by mouth daily budesonide-formoterol (SYMBICORT) 160-4.5 MCG/ACT inhaler Inhale 2 puffs into the lungs Two Times Daily 3 Inhaler 3 docusate sodium (COLACE) 100 MG capsule Take 100 mg by mouth Daily dornase jefe (PULMOZYME) inhalation solution Inhale 2.5 mg into the lungs Two Times Daily 450mL 3 fluticasone (FLONASE) 50 MCG/ACT nasal spray 1 spray as needed ibuprofen (ADVIL,MOTRIN) 200 MG tablet Take 200 mg by mouth every 6 (six ) hours as needed levalbuterol (XOPENEX) 0.63 MG/3ML nebulizer solution INHALE THE CONTENTS OF ONE VIAL VIA NEBULIZER EVERY DAY NEEDED 3 loratadine (CLARITIN) 10 MG tablet Take by mouth as needed LORazepam (ATIVAN) 0.5 MG tablet TAKE 1/2 TO 1 TABLET TWO TIMES A DAY NEEDED FOR ANXIETY MAXIMUM DAILY DOSE 2 0 montelukast (SINGULAIR) 10 MG tablet Take 1 tablet by mouth nightly 90 tablet 3 naproxen sodium (ANAPROX) 220 MG tablet Take 220 mg by mouth as needed omeprazole (PRILOSEC) 40 MG capsule 40 mg daily polyethylene glycol (GLYCOLAX) powder Take 17 g by mouth daily as needed 255 g 5 rifAXIMin 550 MG Oral Tablet (XIFAXAN) Take 550 mg by mouth Three times daily rizatriptan (MAXALT-MAGNETO SPECIALIST) 10 MG disintegrating tablet 10 mg as needed sodium chloride 3 % inhalation solution Take 4 mLs by nebulization Two Times Daily (Patient taking differently: Take 4 mLs by nebulization Three times daily ) 720 mL 3 XOPENEX HFA 45 MCG/ACT inhaler every 6 (six) hours as needed No current facility-administered medications on file prior to visit. Danay is allergic to cefuroxime; environmental; iodinated diagnostic agents; morphine; and amoxicillin-pot clavulanate. Review of Systems Constitutional: Positive for unexpected weight change. Negative for chills and fever. HENT: Positive for postnasal drip. Negative for congestion. Eyes: Negative for pain and itching. Respiratory: Positive for cough, chest tightness, shortness of breath and wheezing. Cardiovascular: Negative for chest pain and palpitations. Gastrointestinal: Positive for abdominal distention. Negative for abdominal pain. Endocrine: Negative for heat intolerance and polydipsia. Genitourinary: Negative for dysuria and frequency. Musculoskeletal: Negative for arthralgias and back pain. Skin: Negative for color change and pallor. Neurological: Negative for dizziness and headaches. Psychiatric/Behavioral: Negative for agitation and behavioral problems. Objective: Visit Vitals BP 145/90 Pulse 73 Temp 37.3 C (99.1 F) Resp 18 Ht 1.636 m (5' 4.41") Wt 62.2 kg (137 lb 3.2 oz) SpO2 99% BMI 23.25 kg/m Physical Exam Vitals signs and nursing note reviewed. Constitutional: Appearance: She is well-developed. HENT: Head: Normocephalic and atraumatic. Nose: No congestion or rhinorrhea. Eyes: General: Right eye: No discharge. Pupils: Pupils are equal, round, and reactive to light. Neck: Musculoskeletal: Normal range of motion and neck supple. Muscular tenderness present. No neck rigidity. Cardiovascular: Rate and Rhythm: Normal rate and regular rhythm. Heart sounds: No murmur. No friction rub. No gallop. Pulmonary: Effort: Pulmonary effort is normal. No respiratory distress. Breath sounds: Wheezing and rales present. Abdominal: General: Abdomen is flat. Bowel sounds are normal. There is no distension. Palpations: Abdomen is soft. Tenderness: There is no tenderness. Skin: General: Skin is warm and dry. Neurological: General: No focal deficit present. Mental Status: She is alert and oriented to person, place, and time. Sweat chloride 54 CT thorax No bronchiectasis. Prominent mediastinal lymphadenopathy. FEV1 2.84L, 102% Pancreatic stool elastase >500 IgE 203 Assessment/Plan: Ms. Mojica is a 48/F with abdominal pain bloating, diarrhea, h/o weight loss of 20 lbs over the past year along with cough, wheezing, chest tightness and upper respiratory symptoms including post nasal drip and nasal congestion. Her sweat chloride if 54 suggest CF metabolic syndrome. She has one copy of [id number]. Lung function normal. These symptoms are suggestive of CF however there is no bronchiectasis at all in the CT thorax. Sputum culture shows indigenous organisms. There are prominent lymph nodes in the mediastinum. Plan for complete genetic workup looking for mutations, CFTR sequencing at thistime. Elevated IgE with pulmonary symptoms. Continue to treat for asthma with symbicort and Singulair. Will follow up in a month to have further discussion. documented in this encounter Plan of Treatment Date Type Specialty Care Team Description 03/08/2019 Office Visit Pediatric Pulmonology Emily Bradford MD [address] [place] [address] [address] [place] [address] [phone] Name Type Priority Associated Diagnoses Date/Time Spirometry + pre & post PFT Routine Cystic fibrosis 12/28/2018 2:32 PM bronchodilator test transmembrane conductance EST (albuterol or xopenex) regulator-related metabolic syndrome Health Maintenance Due Date Last Done Comments MMR Vaccines (1 of 1 - Standard 1971 series) DTaP,Tdap,and Td Vaccines (1 - 1977 Tdap) HIV Screening 1983 Varicella Vaccines (1 of 2 - 13+ 1983 2-dose series) Cervical Cancer Screening 5 years 1991 Influenza Vaccine 11/10/2018 Pneumococcal Vaccine: 65+ Years [...] on patient's age to complete this topic Pneumococcal Vaccine: Pediatrics Aged Out No longer eligible based on (0 to 5 Years) and At-Risk patient's age to complete this Patients (6 to 64 Years) topic documented as of this encounter Procedures Procedure Name Priority Date/Time Associated Diagnosis Comments LAB RESULTS 12/31/2018 1:16 (OUTSIDE/HISTORICAL) PM EST RADIOLOGY REPORT 12/31/2018 11:38 AM EST CYSTIC SPUTUM CULTURE Routine 12/28/2018 4:03 Cystic fibrosis Results for this PM EST transmembrane procedure are in conductance the results regulator-related section. metabolic syndrome SPIROMETRY + PRE & Routine 12/28/2018 2:32 Cystic fibrosis POST BRONCHODILATOR PM EST transmembrane TEST (ALBUTEROL OR conductance XOPENEX) regulator-related metabolic syndrome documented in this encounter Results LAB RESULTS (OUTSIDE/HISTORICAL) (12/31/2018 1:16 PM EST) Narrative Performed At RADIOLOGY REPORT (12/31/2018 11:38 AM EST) Narrative Performed At Cystic Sputum Culture (12/28/2018 4:03 PM EST) Special Request None [facility] Gram Stain Unable to perform [facility] CLINICAL PATHOLOGY Culture/Results NORMAL NADEGE [facility] Pathology Specimen Throat-Cystic Performing Organization Address [facility]State[facility] Phone Number [facility] [address] [place] [address] [facility] [address] [place] [address] Pathology documented in this encounter Visit Diagnoses Diagnosis 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 Follow precautions. Hazardous waste disposal, documented in this encounter
--- OUTSIDE RECORDS SUMMARY | 2019-02-26 07:41 | XMS REPORT | Summary of Care ---
:1970 Author Organization [facility] Address [address] [place] [address] Care Team Providers Name Role Phone Marley Schwarz MD Primary Care Provider Encounter Details Date Type Department Care Team Description 01/19/2019 Office Visit PREADMISSION TESTING Rayne Borden, PA Arrived [address] [facility] [place] [address] [place] [address] [place] [address] [phone] Allergies Active Allergy Reactions Severity Noted Date [...] as of this encounter (statuses as of 01/20/2019) Medications Medication Sig Dispensed Refills Start Date [...] 10 mg as needed 0 07/25/2018 Active (MAXALT-EVENTS ASSISTANT) 10 MG disintegrating tablet Black Cohosh 540 [...] Standard, Reported on 12/28/2018 2:26 PM Zenpep [id number] UNIT Oral Take 1 capsule by 270 capsule 5 12/30/2018 Active Capsule Delayed Release mouth Three times ParticlesIndications: High daily with meals And sweat chloride, Constipation, snacks. unspecified constipation type Levalbuterol HCl 0.63 MG/3ML Take 1 ampule by 0 Active Inhalation Nebulization nebulization every 4 Solution (XOPENEX) (four) hours as needed for Wheezing documented as of this encounter (statuses as of 01/20/2019) Active Problems Problem Noted Date Cystic fibrosis transmembrane conductance regulator-related metabolic 2018 syndrome documented as of this encounter (statuses as of 01/20/2019) Social History Tobacco Use Types Packs/Day Years [...] Sign Reading Time Taken Comments Blood Pressure 127/81 01/19/2019 2:56 PM EST Pulse 74 01/19/2019 2:56 PM EST Temperature 37.5 01/19/2019 2:56 PM C (99.5 EST F) Respiratory Rate 16 01/19/2019 2:56 PM EST Oxygen Saturation 98% 01/19/2019 2:56 PM EST Inhaled Oxygen Concentration - - Weight 63.4 kg (139 lb 12.4 oz) 01/19/2019 2:56 PM EST Height 158.5 cm (5' 2.4") 01/19/2019 2:56 PM EST Body Mass Index 25.24 01/19/2019 2:56 PM EST documented in this encounter Patient Instructions Patient InstructionsRayne Borden PA - 01/19/2019 2:45 PM EST PRE-ANESTHESIA INSTRUCTIONS Tentative Date: 01/21/2019 Tentative Arrival Time: 11:30 AM Take medications morning of surgery with a few sips of water/clear liquid. [employer]IRE Medications Medication Sig Pre-Anesthesia Instructions for Medications azelastine (OPTIVAR) 0.05 % ophthalmic solution Place 1 drop into both eyes daily as needed Continue as prescribed Beclomethasone Dipropionate 80 MCG/ACT AERS every other day AM, Alternating w/Flonase Continue as prescribed Black Cohosh 540 MG CAPS Take by mouth Twice Daily Continue as prescribed - NOT TO BE TAKEN DAY OF SURGERY budesonide-formoterol (SYMBICORT) 160-4.5 MCG/ACT inhaler Inhale 2 puffs into the lungs Two Times Daily Continue as prescribed - TAKE MORNING OF SURGERY docusate sodium (COLACE) 100 MG capsule Take 100 mg by mouth every morning Continue as prescribed - NOT TO BE TAKEN DAY OF SURGERY fluticasone (FLONASE) 50 MCG/ACT nasal spray 1 spray every other day AM, Alternate with Q-nasal Continue as prescribed ibuprofen (ADVIL,MOTRIN) 200 MG tablet Take 200 mg by mouth every 6 (six ) hours as needed per Surgeon levalbuterol (XOPENEX) 0.63 MG/3ML nebulizer solution INHALE THE CONTENTS OF ONE VIAL VIA NEBULIZER EVERY DAY NEEDED Continue as prescribed Levalbuterol HCl 0.63 MG/3ML Inhalation Nebulization Solution (XOPENEX) Take 1 ampule by nebulization every 4 (four) hours as needed for Wheezing Continue as prescribed loratadine (CLARITIN) 10 MG tablet Take by mouth every morning Continue as prescribed - TAKEMORNING OF SURGERY LORazepam (ATIVAN) 0.5 MG tablet TAKE 1/2 TO 1 TABLET TWO TIMES A DAY NEEDED FOR ANXIETY MAXIMUM DAILY DOSE 2 Continue as prescribed montelukast (SINGULAIR) 10 MG tablet Take 1 tablet by mouth nightly Continue as prescribed naproxen sodium (ANAPROX) 220 MG tablet Take 220 mg by mouth as needed per Surgeon omeprazole (PRILOSEC) 40 MG capsule 40 mg every morning Continue as prescribed - TAKE MORNING OF SURGERY polyethylene glycol (GLYCOLAX) powder Take 17 g by mouth daily as needed Continue as prescribed - NOT TO BE TAKEN DAY OF SURGERY rizatriptan (MAXALT-EVENTS ASSISTANT) 10 MG disintegrating tablet 10 mg as needed Continue as prescribed XOPENEX HFA 45 MCG/ACT inhaler every 6 (six) hours as needed Continue as prescribed Zenpep [id number] UNIT Oral Capsule Delayed Release Particles Take 1 capsule by mouth Threetimes daily with meals And snacks. Continue as prescribed - NOT TO BE TAKEN DAY OF SURGERY ADULT AND CHILDREN 12 years old and older: These instructions apply to food and liquids by mouth andfeeding tube. Stop all solid food no later than Midnight (This includes gum and candies) Stop all clear liquids 2 hours before your scheduled arrival at hospital. Examples of Approved Clear Liquids for Adults: Water or ice, apple juice, ken myrna, non-red and non-purple Gatorade or Powerade. NOTHING ELSE, NO SUBSTITUTIONS! Examples of solids include: pureed solids, milk, formula, gum, candy, lozenges, pulp juices, nectars, or any liquid you cannot see through. PATIENTS WITH DIABETES PLEASE NOTE: Please check your sugar level the morning of your procedure. If you are having a low blood sugar attack (sweating, fatigue, light-headedness ) the morning of yoursurgery, please check your sugar level. You may take glucose tablets and/or clear juices such as apple, grape, or cranberry. Do not take juices you cannot see through such as orange or tomato juice.Do not eat solid food. If you are taking Motrin, Advil, Ibuprofen, or other anti-inflammatories, call your surgeon for specific instructions regarding stopping them prior to surgery. You may take Tylenol (acetaminophen) for pain. No alcohol, vitamins and supplements, illegal drugs or smoking 24 hours before surgery. Call your surgeon if you are sick, have a cold or fever. Make arrangements to have a responsible adult drive you home after surgery. Wear comfortable clothes, no valuables, remove all jewelry and piercing, no makeup or nail divehi. Do not use oil, lotion or powder on your skin before coming for your procedure. You will meet with your Anesthesiologist the day of your surgery. The Night before Your Procedure: You should receive a phone call the business day before (Friday for Friday procedures) between 3 and6 PM to confirm your arrival time the next day, as any time given to you before this was only tentative. To finalize your arrival time for your procedure, and if you have not heard from : Children's Operating Room, including MRI by 6 PM, please call Heart and Vascular Center by 5 PM, you should call Cancer Center by 3 PM, you should call Outpatient Surgery Center ([address]) by 3 PM, you should call [phone] Adult Operating Room (5E) will only call you if your arrival time has changed. If you have anyquestions, please call Adult Endoscopy Adult MRI The Day of Your Procedure: Please park in the East Garage. Patient and Visitor parking is located on the 1st and 2nd floors of the garage. The garage accepts both franz and credit cards for payment of parking fees. There also is an WILLIAM located in the Main Lobby. Surgical Technology Instructor Parking - Surgical Technology Instructor Parking is available in the Hospital front minto for an additional $5.00 on top of regular parking fees. 1st floor - If you park on the 1st floor of the garage, please walk across [facility]. and enter through the Main Hospital entrance. Walk past the Visitor check in and go to the Registration desk on the right, where you will be registered for your procedure and your family will get their visitor passes. All adults need to provide photo ID. You will then be told where to go for your procedure. 2 nd floor - If you park on the 2nd floor of the garage, please walk across bridge over [facility]. Do NOT go to the Visitor checking in on the 2nd floor. Take either the stairs or the elevator to yourright and go down to the 1st floor Main Lobby. Walk past the Visitor check in and go to the Registration desk on the right, where you will be registered for your procedure and your family will get their visitor passes. All adults need to provide photo ID. You will then be told where to go for yourprocedure. documented in this encounter Plan of Treatment Date Type Specialty Care Team Description 01/21/2019 Hospital Encounter Emily Bradford MD [address] [place] [address] [phone] 03/08/2019 Office Visit Pediatric Pulmonology Emily Bradford MD [address] [address] [phone] Health Maintenance Due Date Last Done Comments MMR Vaccines (1 of 1 - Standard 1971 series) Varicella Vaccines (1 of 2 - 1971 2-dose childhood series) Pneumococcal Vaccine: Pediatrics 1976 (0 to 5 Years) and At-Risk Patients (6 to 64 Years) (1 of 1 - PPSV23) DTaP,Tdap,and Td Vaccines (1 - 1977 Tdap) HIV Screening 1983 Cervical Cancer Screening 5 years 1991 Influenza [...]
--- OUTSIDE RECORDS SUMMARY | 2019-02-26 07:41 | XMS REPORT | Summary of Care ---
:1970 Author Organization [facility] Address [address] [place] [address] Care Team Providers Name Role Phone Marley Schwarz MD Primary Care Provider Encounter Details Date Type Department Care Team Description 12/28/2018 Hospital Encounter [facility] Clinical Pathology at [facility] [address] [place] [address] Allergies Active Allergy Reactions Severity Noted Date Comments Amoxicillin-Pot Other (See Comments) Low 08/23/2013 H/o c diff Clavulanate Cefuroxime 12/08/2018 Environmental 12/08/2018 Iodinated Diagnostic Hives, Nausea And 09/10/2013 Patient states had Agents Vomiting nausea all day no vomiting about 5 minutes after exam was done patient vomited possible reaction to iv contast Morphine Hives 08/23/2013 documented as of this encounter (statuses as of 12/29/2018) Medications Medication Sig Dispensed Refills Start Date End Date Status azelastine (OPTIVAR) daily as needed 0 Active 0.05 % ophthalmic solution docusate sodium Take 100 mg by 0 08/24/2013 Active (COLACE) 100 MG mouth Daily capsule fluticasone 1 spray as needed 0 10/01/2018 Active (FLONASE) 50 MCG/ACT nasal spray ibuprofen Take 200 mg by 0 Active (ADVIL,MOTRIN) 200 mouth every 6 MG tablet (six) hours as needed XOPENEX HFA 45 every 6 (six) 0 09/02/2018 Active MCG/ACT inhaler hours as needed levalbuterol INHALE THE 3 09/18/2018 Active (XOPENEX) 0.63 CONTENTS OF ONE MG/3ML nebulizer VIAL VIA NEBULIZER solution EVERY DAY NEEDED omeprazole 40 mg daily 0 11/15/2018 Active (PRILOSEC) 40 MG capsule loratadine Take by mouth as 0 Active (CLARITIN) 10 MG needed tablet LORazepam (ATIVAN) TAKE 1/2 TO 1 0 12/03/2018 Active 0.5 MG tablet TABLET TWO TIMES A DAY NEEDED FOR ANXIETY MAXIMUM DAILY DOSE 2 naproxen sodium Take 220 mg by 0 Active (ANAPROX) 220 MG mouth as needed tablet rizatriptan 10 mg as needed 0 07/25/2018 Active (MAXALT-TRIAL MGR) 10 MG disintegrating tablet Black Cohosh 540 MG Take by mouth 0 Active CAPS daily Beclomethasone 0 Active Dipropionate 80 MCG/ACT AERS polyethylene glycol Take 17 g by mouth 255 g 5 12/08/2018 Active (GLYCOLAX) daily as needed powderIndications: Constipation, unspecified constipation type ZENPEP [id number] Take 1 capsule by 200 capsule 0 12/08/2018 Active units mouth Three times capsuleIndications: daily with meals High sweat chloride, And snacks. 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 montelukast Take 1 tablet by 90 tablet 3 12/14/2018 Active (SINGULAIR) 10 MG mouth nightly tabletIndications: Mild persistent asthma without complication budesonide-formotero Inhale 2 puffs 3 Inhaler 3 12/14/2018 Active l (SYMBICORT) into the lungs Two 160-4.5 MCG/ACT Times Daily inhalerIndications: Mild persistent asthma without complication sodium chloride 3 % Take 4 mLs by 720 mL 3 12/14/2018 Active inhalation nebulization Two solutionIndications: Times Daily Mild persistent asthma without complication Additional information Patient taking differently: 4 mL Nebulization Three Times Daily Standard, Reported on 12/28/2018 2:26 PM rifAXIMin 550 MG Oral Tablet Take 550 mg by mouth 0 12/23/20182018 Active (XIFAXAN) Three times daily documented as of this encounter (statuses as of 12/29/2018) Active Problems Problem Noted Date 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 documented as of this encounter Last Filed Vital Signs Not on filedocumented in this encounter Plan of Treatment Date Type Specialty Care Team Description 03/08/2019 Office Visit Pediatric Pulmonology Emily Bradford MD [address] [place] [address] [phone] Health Maintenance Due Date Last Done Comments [...] Years) topic documented as of this encounter Results Not on filedocumented in this encounter
--- OUTSIDE RECORDS SUMMARY | 2019-02-26 07:41 | XMS REPORT | Summary of Care ---
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 Cough Emily Bradford MD Procedures CT Thorax without Contrast [address] [address] Email: [email or web address] Encounter Details Date Type Department Care Team Description 12/28/[address] [facility] 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; [address] [address] Allergies Active Allergy Reactions Severity Noted Date [...] 10 mg as needed 0 07/25/2018 Active (MAXALT-PRESS PULLER) 10 MG disintegrating tablet Black Cohosh 540 MG Take by mouth 0 Active CAPS daily Beclomethasone 0 Active Dipropionate 80 MCG/ACT AERS polyethylene glycol Take 17 g by mouth 255 g 5 12/08/2018 Active (GLYCOLAX) daily as needed powderIndications: Constipation, unspecified constipation type ZENPEP [id number] Take 1 capsule by 200 capsule 0 [...] Office Visit Pediatric Pulmonology Emily Bradford MD [address] [place] [address] [address] [place] [address] [phone] Name Type Priority Associated Diagnoses Date/Time CT Thorax without Imaging Routine Cystic fibrosis 12/28/2018 2:00 PM Contrast transmembrane conductance EST regulator-related metabolic syndrome Cough Name Type Priority Associated Diagnoses Order Schedule CT Thorax without Imaging Routine Cystic fibrosis As Needed for 1 Contrast transmembrane conductance Occurrences starting regulator-related 12/28/2018 until metabolic syndrome 12/28/2018 Cough Health Maintenance Due Date Last Done Comments [...] filedocumented in this encounter Visit Diagnoses Diagnosis 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
--- OUTSIDE RECORDS SUMMARY | 2019-02-26 07:41 | XMS REPORT | Continuity of Care Document ---
:1970 External Reference #:[id number] Author Name Gigi Mcdonough M.D. Address [address] [place] [address] Care Team Providers Name Role Phone Victor Hugo Root M.D. 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 Onset: Sarcoidosis Onset: Irritable bowel syndrome Onset: Fibromyalgia Onset: Sleep apnea Onset: Asthma Onset: Cystic fibrosis Onset: Social History Type Date Description Comments Sex Unknown ETOH Use Rarely consumes alcohol Tobacco Use Start: Unknown Patient has never smoked Recreational Drug Use Denies Drug Use Smoking Status Reviewed: 02/01/19 Patient has never smoked Allergies, Adverse Reactions, Alerts Active Allergies Reaction Severity Comments Date Dairy Severe 02/01/2019 Gluten Severe 02/01/2019 Augmentin C-DIF Severe 02/01/2019 Steroids Severe 02/01/2019 Environmental Severe 02/01/2019 Seasonal Moderate 02/01/2019 Medications Active Medications SIG Qnty Indications Ordering Provider Date Zenpep Unknown [id number] Caps DR Gerard Montelukast Sodium Alexander Albrecht 10mg Tablets Symbicort Alexander Albrecht 160-4.5mcg/Act MD Aerosol Lorazepam Take 1/2 To 1 Unknown 0.5mg Tablets Tablet Two Times A Day as Needed For Anxiety Maximum Daily Dose 2 Levalbuterol HCL Inhale The Unknown Contents Of One 0.63mg/3ML Nebulizer Vial Via Nebulizer Every Day as Needed Xopenex HFA Victor Hugo Root M.D. 45mcg/Act Aerosol Azelastine HCL Instill 2 Drops Unknown (Ophthalmic) Into Each Eye Once 0.05% Daily For Solution Allergies Rizatriptan Benzoate Dissovle One Unknown 10mg Tablet In Mouth as Tablets Dispers Needed For Headache May Repeat In 2 Hours as Needed Qnasl Faustino Milton 80mcg/Act Aerosol M.DPaulina Fluticasone Propionate Victor Hugo Root M.D. 50mcg/Act Suspension Tacrolimus Apply To Affected Unknown 0.1% Ointment Area S Of Face Two Times A Day as Needed Immunizations Description No Information Available Vital Signs Description No Information Available Results Description No Information Available Procedures Description No Information Available Medical Devices Description No Information Available Encounters Description No Information Available Assessments Date Code Description Provider 02/01/2019 H04.123 Dry eye syndrome of bilateral lacrimal Gigi Mcdonough M.D. glands 02/01/2019 D86.9 Sarcoidosis, unspecified Gigi Mcdonough M.D. Plan of Treatment 02/01/2019 - Gigi Mcdonough M.D.H04.123 Dry eye syndrome of bilateral lacrimal glandsComments:Smoking can increase the risk of developing or worsening any eye related disease, as well as affect your overall health. If you are a smoker, we strongly recommend that you quit.If you are not a smoker, we strongly recommend that you do not start. Both of your eyes appear to be dry. Use artificial tears as directed. You can use the tears more often if you are reading a book or are on the computer,as we tend to blink less, making our eyes dry out more.[facility] offers a few items in our optical department to help alleviate dry eye symptoms. USE OVER THE COUNTER ARTIFICAL TEARS 2-3 TIMES A DAY TO BOTH EYES FOR TWO WEEKS THEN DECREASE TO NEEDED WHEN EYES ARE FEELING "GOOPY" OR IRRITATED. YOU CAN TRY USING WARM COMPRESSES(RICE BAG) FOR 3-5 MINUTES AT NIGHT BEFORE BED FOR 2 WEEKS THEN DECREASE TO NEEDED. AVOID USING VISINE THAT "GETS THE RED OUT" DAILY.Follow up:1 Year Follow Up DFE You can expect to have your eyes dilated at your next visit. If Dr. Mcdonough orders any additional testing, it may require extra time. We recommend that you bring sunglasses, as dilation drops often make you light sensitive until they wear off. We always recommend you bring someone to drive you home if you are uncomfortable driving with your eyes dilated. If you have any questions before your next visit, feel free to call our office at .J76.9 Sarcoidosis, unspecified Functional Status Description No Information Available Mental Status Description No Information Available Referrals Description No Information Available
--- OUTSIDE RECORDS SUMMARY | 2019-02-26 07:41 | XMS REPORT | Summary of Care ---
:1970 Author Organization [facility] Address [address] [place] [address] Care Team Providers Name Role Phone Marley Schwarz MD Primary Care Provider Reason for Visit Auth/Cert Status Reason Specialty Diagnoses / Procedures Referred By Referred To Contact Contact Diagnoses Mediastinal lymphadenopathy [R59.0] Emily Ragsdale MD [address] [place] [id number] Email: [email or web address] Encounter Details Date Type Department Care Team Description 01/21/2019 Hospital Encounter 01W AP1 Emily Ragsdale MD [address] [facility] [address] [place] [address] [place] [address] [phone] Allergies Active Allergy Reactions Severity Noted Date [...] as of this encounter (statuses as of 01/21/2019) Medications Medication Sig Dispensed Refills Start Date [...] 10 mg as needed 0 07/25/2018 Active (MAXALT-PARTS ASSEMBLER) 10 MG disintegrating tablet Black Cohosh 540 [...] Standard, Reported on 12/28/2018 2:26 PM Zenpep [id number] UNIT Oral Take 1 capsule by 270 capsule 5 12/30/2018 Active Capsule Delayed Release mouth Three times ParticlesIndications: High sweat daily with meals chloride, Constipation, And snacks. 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 documented as of this encounter (statuses as of 01/21/2019) Social History Tobacco Use Types Packs/Day Years [...] Sign Reading Time Taken Comments Blood Pressure 112/71 01/21/2019 5:33 PM EST Pulse 84 01/21/2019 5:33 PM EST Temperature 37.3 01/21/2019 5:33 PM EST C (99.1 F) Respiratory Rate 16 01/21/2019 5:33 PM EST Oxygen Saturation 95% 01/21/2019 5:33 PM EST Inhaled Oxygen Concentration - - Weight 63 kg (139 lb) 01/21/2019 12:28 PM EST Height 157.5 cm (5' 2") 01/21/2019 12:28 PM EST Body Mass Index 25.42 01/21/2019 12:28 PM EST documented in this encounter Progress Notes Alessia Aguirre RN - 01/21/2019 5:44 PM ESTReceived from endo s/p bronch. Pt with frequent coughing , no sputum. Pt was also coughing pre procedure avs and provation reviewed, pt aware npo until [address] Ragsdale made aware of sl elevated temp 37.[address]. [address] ragsdale pt remains ok for scheduled dc home piv dcd Dc home with , to car via Shabbir Yepez RN - 01/21/2019 4:05 PM ESTPt complained of sore lip after procedure. Dr. Kennedy spoke to pt and family at bedside and explained the cause was from the breathing tube. Pt and family verbalized understanding. [employer] Incident Responder got pt ice toapply to lip soreness. Continuing to monitor pt throughout recovery. documented in this encounter Plan of Treatment Date Type Specialty Care Team Description 03/08/2019 Office Visit Pediatric Pulmonology Emily Ragsdale MD [address] [place] [address] [phone] Name Type Priority Associated Date/Time Diagnoses Fine Needle Pathology and Routine 01/21/2019 3:42 Aspirate Cytology PM EST Sputum Culture; Microbiology Routine 01/21/2019 7:01 PM EST AFB culture; Microbiology Routine 01/21/2019 7:01 PM EST Fungus culture Microbiology Routine 01/21/2019 7:01 PM EST Bx/Surg Tissue Microbiology Routine 01/21/2019 7:02 Culture 1 PM EST AFB culture; Microbiology Routine 01/21/2019 7:02 PM EST Fungus culture Microbiology Routine 01/21/2019 7:02 PM EST Name Type Priority Associated Order Schedule Diagnoses POCT glucose, Point of Care Routine Once for 1 docked (if Testing-Docked Device Occurrences diabetic) starting 01/21/2019 until 01/21/2019 Oxygen Orders: Respiratory Care Routine Continuous for 30 Nasal Cannula; days for 30 Days Liters per minute: starting 01/21/2019 2 LPM; D/C Oxygen until 02/20/2019 48hrs After Being on Room Air: Yes Fine Needle Pathology and Routine Once for 1 Aspirate Cytology Occurrences starting 01/21/2019 until 01/21/2019 AFB culture; Lymph Microbiology Routine Once for 1 Node Occurrences starting 01/21/2019 until 01/21/2019 Fungus culture Microbiology Routine Once for 1 Occurrences starting 01/21/2019 until 01/21/2019 AFB culture; Microbiology Routine Once for 1 Bronchial Washing Occurrences starting 01/21/2019 until 01/21/2019 Fungus culture Microbiology Routine Once for 1 Occurrences starting 01/21/2019 until 01/21/2019 Sputum Culture; Microbiology Routine Once for 1 Bronchial Washings Occurrences starting 01/21/2019 until 01/21/2019 Gram stain Microbiology Routine Once for 1 Occurrences starting 01/21/2019 until 01/21/2019 Bx/Surg Tissue Microbiology Routine Once for 1 Culture 1 Occurrences starting 01/21/2019 until 01/21/2019 Fine Needle Pathology and Routine Once for 1 Aspirate Cytology Occurrences starting 01/21/2019 until 01/21/2019 Sputum Culture Microbiology Routine Once for 1 Occurrences starting 01/21/2019 until 01/21/2019 AFB culture Microbiology Routine Once for 1 Occurrences starting 01/21/2019 until 01/21/2019 Fungus culture Microbiology Routine Once for 1 Occurrences starting 01/21/2019 until 01/21/2019 Bx/Surg Tissue Microbiology Routine Once for 1 Culture 1 Occurrences starting 01/21/2019 until 01/21/2019 AFB culture Microbiology Routine Once for 1 Occurrences starting 01/21/2019 until 01/21/2019 Fungus culture Microbiology Routine Once for 1 Occurrences starting 01/21/2019 until 01/21/2019 Health Maintenance Due Date Last Done Comments [...] this topic documented as of this encounter Procedures Procedure Name Priority Date/Time Associated Diagnosis Comments BRONCHOSCOPY REPORT 01/21/2019 12:00 AM EST CARDIAC REPORT 01/18/2019 4:45 PM EST documented in this encounter Results Not on filedocumented in this encounter Administered Medications Medication Order MAR Action Action Date Dose Rate Site sodium chloride (preservative free) 0.9 % flush 3 mL 3 mL, Intravenous, Every 8 hours Standard (3 times per day), First dose on Tiesha 01/21/19 at 1700, For 30 days, Pre-op, Saline Lock. Flush Q8H and after each use to Saline Lock., sodium chloride (preservative free) 0.9 % flush 3 mL 3 mL, Intravenous, PRN, Line Care, Starting Tiesha 01/21/19 at 1223, For 30 days, Pre-op, Saline Lock. Flush Q8H and after each use to Saline Lock., documented in this encounter
--- NOTE | 2019-02-26 07:45 | ED ---
Influenza-Like Illness - HPI Summary HPI Summary: 48 year old female with history of scleroderma presents with flulike illness the past two day. She admits to fevers and chills. States her whole body aches. She admits to a cough. She has been having sinus congestion. Has history of chronic sinusitis. She just got diagnosed with scleroderma. Has history of stills. She denies any chest pain. She admits to some tightness from her asthma. She admits to some occasional abdominal pain. She admits to occasional nausea. - History of Current Complaint Chief Complaint: EDFluSymptoms Time Seen by Provider: 02/26/19 07:20 - Allergy/Home Medications Allergies/Adverse Reactions: Allergies Allergy/AdvReac Type Severity Reaction Status Date / Time amoxicillin [From Augmentin] Allergy Diarrhea Verified 02/26/19 07:18 clavulanic acid Allergy Diarrhea Verified 02/26/19 07:18 [From Augmentin] Iodinated Contrast Media Allergy Hives Verified 02/26/19 07:18 [Iodinated Contrast- Oral and IV Dye] morphine Allergy Hives Verified 02/26/19 07:18 Home Medications: Home Medications Black Cohosh 40 mg PO DAILY 02/26/19 [History Confirmed 02/26/19] Budesonide/Formote 80/4.5(NF) [Symbicort 80/4.5 (NF)] 2 puff INH BID 02/26/19 [ History Confirmed 02/26/19] Docusate CAP* [Colace Cap*] 100 mg PO DAILY 02/26/19 [History Confirmed 02/26/19 ] Polyethylene Glycol 3350* [Miralax*] 17 gm PO DAILY 02/26/19 [History Confirmed 02/26/19] Propylene Glycol [Systane Balance] 1 drop BOTH EYES DAILY PRN 02/26/19 [History Confirmed 02/26/19] SUMAtriptan TAB* [Imitrex TAB*] 25 mg PO ONCE PRN 02/26/19 [History Confirmed ] PMH/Surg Hx/FS Hx/Imm Hx Endocrine/Hematology History: Denies: Hx Diabetes Cardiovascular History: Denies: Hx Hypertension, Hx Pacemaker/ICD Respiratory History: Reports: Hx Asthma GI History: Reports: Hx Diverticulosis, Hx Gastroesophageal Reflux Disease, Hx Irritable Bowel, Hx Ulcer, Other GI Disorders - IBS; DIVERTICULOSIS History: Denies: Hx Renal Disease Musculoskeletal History: Reports: Hx Arthritis, Hx Back Problems Sensory History: Reports: Hx Contacts or Glasses Denies: Hx Hearing Aid Opthamlomology History: Reports: Hx Contacts or Glasses Neurological History: Reports: Hx Headaches Comment Only: Other Neuro Impairments/Disorders - PAIN CLINIC PT Psychiatric History: Reports: Hx Anxiety - does not take any meds for this Denies: Hx Panic Disorder - Cancer History Hx Chemotherapy: No Hx Radiation Therapy: No - Surgical History Surgery Procedure, Year, and Place: BREAST IMPLANTS. C SECTION. HYSTERECTOMY. Neck Surgery Infectious Disease History: No Infectious Disease History: Reports: History Other Infectious Disease - "TRAVELER'S DIARRHEA" Denies: Traveled Outside the [place] in Last 30 Days - Family History Known Family History: Positive: Cardiac Disease - in father - Social History Alcohol Use: Occasionally Alcohol Amount: 3-4 drinks/week Substance Use Type: Reports: None Substance Use Comment - Amount & Last Used: CBD oil Smoking Status (MU): Never Smoked Tobacco Have You Smoked in the Last Year: No Review of Systems Positive: Fever, Chills Negative: Chest Pain Positive: Cough Positive: Nausea Positive: Headache All Other Systems Reviewed And Are Negative: Yes Physical Exam Triage Information Reviewed: Yes Vital Signs On Initial Exam: Initial Vitals Temp Pulse Resp BP Pulse Ox 98.6 F 94 18 126/81 100 02/26/19 07:13 02/26/19 07:13 02/26/19 07:13 02/26/19 07:13 02/26/19 07:13 Vital Signs Reviewed: Yes Appearance: Positive: Well-Appearing Skin: Positive: Warm, Dry Head/Face: Positive: Normal Head/Face Inspection Eyes: Positive: Normal, EOMI, TRISTAN, Conjunctiva Clear ENT: Positive: Normal ENT inspection, Pharynx normal, TMs normal Respiratory/Lung Sounds: Positive: Clear to Auscultation, Breath Sounds Present Cardiovascular: Positive: Normal, RRR Abdomen Description: Positive: Nontender, Soft Bowel Sounds: Positive: Present Musculoskeletal: Positive: Normal Neurological: Positive: Normal Psychiatric: Positive: Normal Procedures - Sedation Patient Received Moderate/Deep Sedation with Procedure: No Diagnostics - Vital Signs Vital Signs Temp Pulse Resp BP Pulse Ox 02/26/19 07:13 98.6 F 94 18 126/81 100 - Laboratory Lab Results: Lab Results 02/26/19 Range/Units 07:15 Influenza A (Rapid) Positive A (Negative) Influenza B (Rapid) Not Reportable Result Diagrams: 02/26/19 07:45 02/26/19 07:44 Lab Statement: Any lab studies that have been ordered have been reviewed, and results considered in the medical decision making process. - Radiology chest Radiology Interpretation Completed By: Radiologist Summary of Radiographic Findings: IMPRESSION: NO ACTIVE CARDIOPULMONARY DISEASE. Re-Evaluation - Re-Evaluation First Eval Re-Evaluation Time: 09:01 Change: Improved Comment: feeling better Flu Symptom Course/Dx - Course Course Of Treatment: 48 year old female with history of scleroderma presents with flulike illness the past two day. She admits to fevers and chills. States her whole body aches. She admits to a cough. She has been having sinus congestion. Has history of chronic sinusitis. She just got diagnosed with scleroderma. Has history of stills. She denies any chest pain. She admits to some tightness from her asthma. She admits to some occasional abdominal pain. She admits to occasional nausea. On exam appears ill but nontoxic. Lungs clear to auscultation. Chest x-ray normal. White blood count normal. Flu a positive. will discharge with tamiflu. patient understand and agrees with plan. - Diagnoses Differential Diagnosis/HQI/PQRI: Positive: Influenza, Pneumonia, Upper Respiratory Infection Provider Diagnoses: Influenza Discharge ED - Sign-Out/Discharge Documenting (check all that apply): Patient Departure - Discharge Plan Condition: Good Disposition: HOME Prescriptions: Oseltamivir CAP* [Tamiflu CAP*] 75 mg PO BID #9 cap Patient Education Materials: Influenza (ED) Referrals: Victor Hugo Root MD [Primary Care Provider] - Additional Instructions: Take Tamiflu twice for 5 days first dose given in ED Take Tylenol and ibuprofen for muscle aches and fever every 6 hours Saline rinse can be used multiple times a day for nasal congestion Drink plenty of fluids Follow up with primary within 5 days Return to ED if develop any new or worsening symptoms - Billing Disposition and Condition Condition: GOOD Disposition: Home
[2019-02-26 08:00] LABS: ABS Eosinophils 0.1 10^3/ul (0-0.6); ABS Lymphocytes 0.4 10^3/ul (1.0-4.8); ABS Monocytes 0.6 10^3/ul (0-0.8); ABS Neutrophils 4.6 10^3/ul (1.5-7.7); Eosinophil % 1.4 %; Hematocrit 37 % (35-47); Hemoglobin 12.7 g/dL (12.0-16.0); Lymphocyte % 6.8 %; Mean Corpuscular HGB Conc 34 g/dL (31-36); Mean Corpuscular Hemoglobin 32 pg (27-31); Mean Corpuscular Volume 93 fL (80-97); Mean Platelet Volume 7.3 fL (7.4-10.4); Platelet Count 193 10^3/uL (150-450); Red Blood Count 3.97 10^6 /uL (3.70-4.87); Red Cell Distribution Width 13 % (10-15); White Blood Count 5.8 10^3/uL (3.5-10.8)
[2019-02-26] MEDS ORDERED: Ketorolac INJ* 30 MG/ML 1 ML VIAL IV PUSH ONE (08:09)
[2019-02-26 08:13] LABS: Albumin 4.2 g/dL (3.2-5.2); Albumin/Globulin Ratio 1.6 (1-3); BUN/Creatinine Ratio 13.1 (8-20); C Reactive Protein 1.86 mg/L (<8.01); Calcium 9.1 mg/dL (8.6-10.3); EGFR African American 87.6 (>60); EGFR Non-African American 72.4 (>60); Globulin 2.6 g/dL (2-4); Magnesium 1.7 mg/dL (1.9-2.7); Potassium 3.9 mmol/L (3.5-5.0); Total Bilirubin 0.3 mg/dL (0.2-1.0); Total Protein 6.8 g/dL (6.4-8.9)
[2019-02-26] MEDS ORDERED: Magnesium Chloride EC TAB* 64 MG PO ONE (08:15)
[2019-02-26] MEDS ORDERED: Levalbuterol 1.25MG/0.5ML NEB INH ONE (08:26)
[2019-02-26] MEDS ORDERED: Oseltamivir CAP* 75 MG CAP PO ONE (08:28)
[2019-02-26 09:25] VITALS: BP 119/76
== END 2019-02-26 09:23 | disposition home or self-care (01) ==
LOC: ED 07:12
DX: J11.1 Influenza due to unidentified influenza virus with other respiratory manifestations (principal); R50.9 Fever, unspecified; R05 Cough; R11.0 Nausea; R51 Headache; Z79.899 Other long term (current) drug therapy; K21.9 Gastro-esophageal reflux disease without esophagitis
CPT/HCPCS: 36415; 71046; 80053; 83605; 83735; 85025; 86140; 96361; 96374; 99283; A9270-GY; J1885

== ENCOUNTER 2023-10-24 17:56 | Observation (INO) ==
[2023-10-24 18:31] LABS: ABS Basophils 0.1 10^3/uL (0.0-0.1); ABS Eosinophils 0.1 10^3/uL (0.0-0.5); ABS Lymphocytes 2.3 10^3/uL (1.0-4.8); ABS Monocytes 0.4 10^3/uL (0.0-0.9); ABS Neutrophils 4.1 10^3/uL (1.5-7.6); ABS Nucleated RBC 0.01 10^3/ul; Eosinophil % 1.9 %; Hemoglobin 13.6 g/dL (11.5-14.3); Lymphocyte % 33.4 %; Mean Corpuscular Volume 88.5 fL (80-97); Mean Platelet Volume 7.6 fL (7.5-11.2); Nucleated Red Blood Cells % 0.2 %/100WBC (0.0-0.8); Platelet Count 270 10^3/uL (150-450); Red Cell Distribution Width 13.2 % (12-17)
[2023-10-24 18:40] LABS: INR 0.89 (0.85-1.14)
[2023-10-24 18:57] LABS: Albumin 5.3 g/dL (3.2-5.2); Calcium 10.4 mg/dL (8.6-10.3); Creatinine, Serum 0.95 mg/dL (0.51-0.95); Globulin 2.6 g/dL (2-4); Potassium 4.1 mmol/L (3.5-5.0); Total Bilirubin 0.3 mg/dL (0.2-1.0); Total Protein 7.9 g/dL (6.4-8.9); eGFR CKD-EPI 71.6 (>60)
[2023-10-24 19:56] LABS: High Sensitivity Troponin 1 Hr 3 pg/mL (<15)
[2023-10-25] MEDS ORDERED: Sulfur Hexaflouride MICROSPHR 25 MG VIAL IV PRN (02:18)
[2023-10-25] MEDS: Enoxaparin 40 MG/0.4 ML SYR SUBCUT SCH (03:05)
[2023-10-25] MEDS ORDERED: Morphine 2 MG/ML SYRINGE IV PRN (05:33)
[2023-10-25 06:05] LABS: ABS Basophils 0.1 10^3/uL (0.0-0.1); ABS Eosinophils 0.1 10^3/uL (0.0-0.5); ABS Monocytes 0.5 10^3/uL (0.0-0.9); ABS Neutrophils 2.5 10^3/uL (1.5-7.6); Eosinophil % 2.9 %; Hematocrit 36.3 % (35-45); Hemoglobin 12.4 g/dL (11.5-14.3); Mean Corpuscular Hemoglobin 30.1 pg (27-33); Mean Corpuscular Hgb Conc 34.1 g/dL (31-36); Mean Corpuscular Volume 88.4 fL (80-97); Mean Platelet Volume 7.4 fL (7.5-11.2); Platelet Count 241 10^3/uL (150-450); Red Blood Count 4.11 10^6/uL (3.63-4.92); Red Cell Distribution Width 13.1 % (12-17); White Blood Count 5.2 10^3/uL (3.8-11.8)
[2023-10-25 06:53] LABS: Calcium 9.4 mg/dL (8.6-10.3); Creatinine, Serum 0.77 mg/dL (0.51-0.95); Potassium 4.5 mmol/L (3.5-5.0); eGFR CKD-EPI 92.2 (>60)
[2023-10-25 07:46] LABS: HDL Cholesterol 85.2 mg/dL
[2023-10-25] MEDS: Albuterol HFA INHALER 8 gm MDI INH SCH (07:57)
[2023-10-25] MEDS ORDERED: Albuterol 2.5mg/3 ml (0.083%) NEB.SOLN INH ONE (08:13)
[2023-10-25] MEDS: Acetylcysteine INH SOL (RT) 200 MG/ML 4 ML VIAL INH SCH (08:19)
[2023-10-25] MEDS: Albuterol 2.5mg/3 ml (0.083%) NEB.SOLN INH SCH (08:19)
[2023-10-25] MEDS ORDERED: Sodium Chloride(INHALANT) 7% 4 ML NEB.SOLN INH PRN ×2 (13:08→14:36)
[2023-10-25] MEDS: [UNRECOGNIZED DRUG - OTHER] PO SCH (17:23)
[2023-10-25] MEDS: PANCRELIPASE PO SCH (17:23)
[2023-10-25] MEDS: Sodium Chloride(INHALANT) 7% 4 ML NEB.SOLN INH SCH (19:19)
[2023-10-25] MEDS: [UNRECOGNIZED DRUG - OTHER] PO SCH (19:57)
[2023-10-26 06:25] LABS: ABS Eosinophils 0.2 10^3/uL (0.0-0.5); ABS Monocytes 0.5 10^3/uL (0.0-0.9); ABS Neutrophils 2.2 10^3/uL (1.5-7.6); Eosinophil % 4.1 %; Hematocrit 37.3 % (35-45); Hemoglobin 12.6 g/dL (11.5-14.3); Lymphocyte % 40.8 %; Mean Corpuscular Hemoglobin 30.3 pg (27-33); Mean Corpuscular Hgb Conc 33.6 g/dL (31-36); Mean Corpuscular Volume 90.3 fL (80-97); Mean Platelet Volume 7.5 fL (7.5-11.2); Nucleated Red Blood Cells % 0.1 %/100WBC (0.0-0.8); Platelet Count 231 10^3/uL (150-450); Red Blood Count 4.14 10^6/uL (3.63-4.92); Red Cell Distribution Width 13.6 % (12-17)
[2023-10-26 06:49] LABS: Calcium 9.5 mg/dL (8.6-10.3); Creatinine, Serum 0.77 mg/dL (0.51-0.95); Potassium 4.4 mmol/L (3.5-5.0); eGFR CKD-EPI 92.2 (>60)
[2023-10-27] MEDS ORDERED: Aminophylline 25 MG/ML VIAL ONE (11:08)
[2023-10-27] MEDS ORDERED: Regadenoson 0.4 MG/5 ML SYRINGE ONE (11:08)
[2023-10-27 13:31] VITALS: BP 133/79
== END 2023-10-27 17:50 | disposition home or self-care (01) ==
LOC: EDHOLD 17:56 → ED 17:56 → SUATTDRO 23:44 → MEDTELE 10-25 11:20
PROVIDERS: ADMIT Internal Medicine; ATTEND Internal Medicine